=== PATIENT | female | born 1955 | race Caucasian/White ===

== ENCOUNTER 2023-09-16 11:43 | Emergency (ER) | payer MEDICARE, OTHER, SELFPAY ==
[2023-09-16] VITALS (20 sets, daily range): BP systolic 122–240; BP diastolic 52–118; PULSE 76–85; RESP 10–19; TEMP 37.1; O2SAT 88–95; BMI 43.5
--- NOTE | 2023-09-16 12:32 | ECG_ITS ---
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
--- NOTE | 2023-09-16 12:32 | XR_ITS ---
The [address] [address] Patient Name: ANTOINETTE MOREL MRN: [id number] date: 1955 Sex: F Assigned Patient Location: ER Current Patient Location: ER Accession/Order Number: [id number] Exam Date: 09/16/2023 12:55 Report Date: 09/16/2023 13:09 At the request of: SHAYLA MONSIVAIS Procedure: XR chest 2V EXAM: XR chest 2V HISTORY: htn COMPARISON: None. TECHNIQUE: PA and lateral views of the chest. FINDINGS: The cardiomediastinal silhouette is enlarged. Interstitial opacity. There is no pneumothorax. No pleural effusion is noted. The osseous structures are intact. XR/XR chest 2V IMPRESSION: Cardiomegaly with congestion. Electronically authenticated by: KARLIE SANDS Date: 09/16/2023 13:09
--- NOTE | 2023-09-16 12:33 | ED.GENADUL1 ---
HPI - General Adult General Chief complaint: Headache Stated complaint: HEADACHE Time Seen by Provider: 09/16/23 12:32 Source: patient Mode of arrival: Wheelchair Limitations: no limitations History of Present Illness HPI narrative: Patient is a 68-year-old female who is presenting to the ER today with chief complaint of bilateral frontal headache and headache to the top of her head as well. Patient saw her PCP Dr. lokesh Mancini in the office yesterday. Patient did not have a headache and patient blood pressure is not increased yesterday. Patient is compliant with her medications. Patient does have a history of headaches. Patient states she's been battling with sinus congestion for the past several months. No vision or hearing changes. Patient is brought to the Emergency Room by a family member. Patient states that she woke up with headache this morning and gradually gotten worse.Patient's headache was not the worse headache of her life, not sudden onset, not thunderclap in nature. No nausea, patient rates her headaches 10/10. No fever. No other acute complaints. All systems are negative except as noted/marked. All systems reviewed and otherwise negative. Nurses note and vital signs reviewed and patient is not hypoxic. General: The patient appears well and in no apparent distress. Patient is resting comfortably on cart. Patient is not toxic, lethargic, or listless. Patient is wearing sunglasses. Skin: Warm, dry, no pallor noted. There is no rash noted. No petechiae, purpura. Head: Normocephalic, atraumatic, No midline or paracervical tenderness to palpation. Full range of motion of cervical spinal no difficulty. Eye: Normal conjunctiva, no drainage, EOMI. PERRL Ears, Nose, Mouth, and Throat: oral mucosa is moist. Nares patent. Mouth without vesicles. Cardiovascular: Regular Rate and Rhythm, no murmur, gallop, rub Respiratory: Patient is in no distress, no accessory muscle use, lungs are clear to auscultation, no wheezing, rales or rhonchi Back: non-tender, no CVA tenderness bilaterally to percussion. No CT LS midline pain GI: Obese, no tenderness to palpation, no masses appreciated. No rebound, guarding, or rigidity noted. No distention Musculoskeletal: Patient has full range of motion of all of the extremities, no motor, sensory, or focal neurological deficits Neurological: A&O x4, normal speech, NIH 0 Psychiatric: Cooperative Related Data Home Medications Medication Instructions Recorded Confirmed metoprolol succinate 50 mg capsule 50 mg PO DAILY 09/16/23 09/16/23 sprinkle, ext. release 24 hr thyroid (pork) 60 mg tablet ([employer] 60 mg PO DAILY 09/16/23 09/16/23 Thyroid) trazodone 50 mg tablet 50 mg PO .at night PRN insomnia 09/16/23 09/16/23 zaleplon 10 mg capsule 10 mg PO .qhs 09/16/23 09/16/23 Previous Rx's Medication Instructions Recorded iutyfbddfi-nikfynptoozzg-cxoalefw 1 cap PO Q8H PRN pain/headache #7 09/16/23 50 mg-300 mg-40 mg capsule caps (Fioricet) prochlorperazine maleate 10 mg 10 mg PO Q12H PRN nausea and 09/16/23 tablet (Compazine) vomiting, headache 7 days #7 tabs Allergies Allergy/AdvReac Type Severity Reaction Status Date / Time ketorolac [From Toradol] Allergy Mild Verified 09/16/23 11:48 magnesium Allergy Mild Verified 09/16/23 11:48 metformin Allergy Mild Uncoded 09/16/23 11:48 PFSH PFSH Social History Smoking status: Never smoker Exam Constitutional Vital Signs, click to edit/add: Last Vital Signs Temp 98.7 F 09/16/23 11:48 Pulse 85 09/16/23 14:03 Resp 16 09/16/23 13:20 BP 168/80 H 09/16/23 14:46 Pulse Ox 94 L 09/16/23 14:27 Course Vital Signs Vital signs: Vital Signs Temperature 98.7 F 09/16/23 11:48 Pulse Rate 83 09/16/23 11:48 Respiratory Rate 18 09/16/23 11:48 Blood Pressure 240/118 H 09/16/23 11:48 Pulse Oximetry 95 09/16/23 11:48 Temperature 98.7 F 09/16/23 11:48 Pulse Rate 85 09/16/23 14:03 Respiratory Rate 16 09/16/23 13:20 Blood Pressure 168/80 H 09/16/23 14:46 Pulse Oximetry 94 L 09/16/23 14:27 Medical Decision Making MDM Narrative Medical decision making narrative: CT of the brain showed no acuute findings, x-ray labwork showed no significant findings. Patient was initially given IV fluids and medication for headache. A fioricet and Compazine were given in the Emergency Room and a prescription was written for both of them as well. Patient states that her headache has been decreasing and is tolerable at discharge. No strokelike signs or symptoms. Patient does not have a blood pressure cuff at home. Patient will record her blood pressure twice a day at home, record the numbers, and then the patient's blood pressure is consistently elevated above 140/90, she'll follow up with Dr. lokesh Mancini for additional recommendations. Patient feels comfortable ggoing home, no questions at discharge., Lab Data Labs: Lab Results 09/16/23 Range/Units 12:47 WBC 7.8 (4.0-11.0) 10^3/uL RBC 4.55 (4.20-5.40) 10^6/uL Hgb 12.2 (12.0-16.0) g/dL Hct 39.2 (36.0-48.0) % MCV 86.2 (81.0-99.0) fL MCH 26.8 (26.7-34.0) pg MCHC 31.1 (29.9-35.2) g/dL RDW 14.2 (11.0-15.0) % Plt Count 334 (150-450) 10^3/uL MPV 9.8 (9.5-13.5) fL Neut % (Auto) 74.7 (43.0-75.0) % Lymph % (Auto) 18.2 L (20.5-60.0) % Davidson % (Auto) 4.9 (1.7-12.0) % Eos % (Auto) 1.0 (0.9-7.0) % Baso % (Auto) 0.6 (0.2-2.0) % Neut # (Auto) 5.8 (1.4-6.5) 10^3/uL Lymph # (Auto) 1.4 (1.2-3.8) 10^3/uL Davidson # (Auto) 0.4 (0.3-0.8) 10^3/uL Eos # (Auto) 0.1 (0.0-0.7) 10^3/uL Baso # (Auto) 0.1 (0.0-0.1) 10^3/uL Abs Immat Gran (auto) 0.05 H (0.00-0.03) 10^3/uL Imm/Tot Granulo (auto) 0.6 H (0.0-0.5) % Sodium 140 (136-145) mmol/L Potassium 3.8 (3.5-5.1) mmol/L Chloride 103 (98-107) mmol/L Carbon Dioxide 29.5 (21.0-32.0) mmol/L Anion Gap 11.3 BUN 22.0 H (7.0-18.0) mg/dL Creatinine 0.79 (0.55-1.02) mg/dL Est GFR ( Amer) >60 (>=60) Est GFR (Non-Af Amer) >60 (>=60) BUN/Creatinine Ratio 27.8 Glucose 124 H (74-106) mg/dL Calcium 10.0 (8.5-10.1) mg/dL Magnesium 1.9 (1.8-2.4) mg/dL Troponin I High Sens 12.9 (4.0-51.3) pg/mL ECG Data Attestation: I personally reviewed and interpreted this ECG as follows: (EKG interpretation. Normal sinus rhythm at 73 beats a minute. Normal axis deviation. No acute ST elevation, no acute ectopy. QTc of 395.) Discharge Plan Discharge Chief Complaint: Headache Clinical Impression: Headache, Hypertension Patient Disposition: Home, Self-Care Time of Disposition Decision: 14:43 Condition: Fair Prescriptions / Home Meds: New prochlorperazine maleate [Compazine] 10 mg tablet 10 mg PO Q12H PRN (Reason: nausea and vomiting, headache) 7 Days Qty: 7 0RF vzevbhoyzh-vevigzjirdscl-oqwi [Fioricet] 50-300-40 mg capsule 1 cap PO Q8H PRN (Reason: pain/headache) Qty: 7 0RF No Action thyroid (pork) [[employer] Thyroid] 60 mg tablet 60 mg PO DAILY trazodone 50 mg tablet 50 mg PO .at night PRN (Reason: insomnia) zaleplon 10 mg capsule 10 mg PO .qhs metoprolol succinate 50 mg capsule,sprinkle,ER 24hr 50 mg PO DAILY Instructions: Hypertension (ED), General Headache (ED) Additional Instructions: Use Fioricet for headache or Compazine as needed for nausea, vomiting, or headache as well. Stand Alone Forms: Portal Instructions Referrals: MAAME GIFFORD [Primary Care Provider] - 1 week Discharge Date/Time: 09/16/23 15:01
[2023-09-16] MEDS: ACETAMINOPHEN 325 MG TABLET 650 MG PO (12:43)
[2023-09-16] MEDS: LACTATED RINGER'S SOLUTION 1,000 ML 125 ML IV (12:43)
[2023-09-16] MEDS: LABETALOL HCL 20 MG/4 ML SYRINGE IVP (12:44)
[2023-09-16 12:57] LABS: Basophils Absolute Auto 0.1 10^3/uL (0.0-0.1); Basophils Percent Auto 0.6 % (0.2-2.0); Eosinophils Absolute Auto 0.1 10^3/uL (0.0-0.7); Hematocrit 39.2 % (36.0-48.0); Hemoglobin 12.2 g/dL (12.0-16.0); Immature Granulocytes Abs Auto 0.05 10^3/uL (0.00-0.03); Immature Granulocytes Pct Auto 0.6 % (0.0-0.5); Lymphocytes Absolute Auto 1.4 10^3/uL (1.2-3.8); Lymphocytes Percent Auto 18.2 % (20.5-60.0); Mean Corpuscular HGB Conc 31.1 g/dL (29.9-35.2); Mean Corpuscular Hemoglobin 26.8 pg (26.7-34.0); Mean Corpuscular Volume 86.2 fL (81.0-99.0); Mean Platelet Volume 9.8 fL (9.5-13.5); Monocytes Absolute Auto 0.4 10^3/uL (0.3-0.8); Monocytes Percent Auto 4.9 % (1.7-12.0); Neutrophils Absolute Auto 5.8 10^3/uL (1.4-6.5); Neutrophils Percent Auto 74.7 % (43.0-75.0); Platelet Count 334 10^3/uL (150-450); Red Blood Count 4.55 10^6/uL (4.20-5.40); Red Cell Distribution Width 14.2 % (11.0-15.0); White Blood Count 7.8 10^3/uL (4.0-11.0)
[2023-09-16 13:10] LABS: Anion Gap 11.3; BUN Creatinine Ratio 27.8; Carbon Dioxide 29.5 mmol/L (21.0-32.0); Chloride 103 mmol/L (98-107); Estimated GFR (African America >60 (>=60); Estimated GFR (Non-African Ame >60 (>=60); Glucose 124 mg/dL (74-106); Magnesium 1.9 mg/dL (1.8-2.4); Potassium 3.8 mmol/L (3.5-5.1); Sodium 140 mmol/L (136-145); Troponin I High Sensitivity 12.9 pg/mL (4.0-51.3)
--- NOTE | 2023-09-16 13:16 | CT_ITS ---
The [address] [address] Patient Name: ANTOINETTE MOREL MRN: [id number] date: 1955 Sex: F Assigned Patient Location: ER Current Patient Location: ER Accession/Order Number: [id number] Exam Date: 09/16/2023 13:25 Report Date: 09/16/2023 13:45 At the request of: SHAYLA MONSIVAIS Procedure: CT head/brain wo con EXAM: CT head/brain wo con HISTORY: htn [place] COMPARISON: None. TECHNIQUE: Axial noncontrast CT imaging of the head was performed with coronal and sagittal reformats. This CT exam was performed using one or more of the following dose reduction techniques: Automated exposure control, adjustment of the MA and/or kV according to patient size, or use of iterative reconstruction technique. FINDINGS: Calvarium/skull base: No evidence of acute fracture or destructive lesion. Mastoids and middle ears demonstrate no substantial mucosal disease. Paranasal sinuses: No air fluid levels. Brain: No acute intracranial hemorrhage. No acute large vascular territory infarct. No mass lesion or mass effect. No hydrocephalus. CT/CT head/brain wo con IMPRESSION: No acute intracranial process. Electronically authenticated by: TAINA BARAKAT Date: 09/16/2023 13:45
[2023-09-16] MEDS: BUTALB/ACETAMINOPHEN/CAFFEINE 50-325-40MG TABLET 1 TAB PO (13:40)
[2023-09-16] MEDS: PROCHLORPERAZINE 10 MG/2 ML VIAL IV (13:40)
== END 2023-09-16 15:01 | disposition home or self-care (01) ==
PROVIDERS: Emergency Provider Emergency Medicine; PCP Family Medicine
DX: R51.9 Headache, unspecified (principal); I10 Essential (primary) hypertension; Z79.899 Other long term (current) drug therapy
CPT/HCPCS: 36415; 70450; 71046; 80048; 83735; 84484; 85025; 93005; 96374; 99285

== ENCOUNTER 2024-09-18 04:29 | Emergency (ER) | payer MEDICARE, OTHER, SELFPAY ==
[2024-09-18] VITALS (8 sets, daily range): BP systolic 170–198; BP diastolic 78–89; PULSE 63–87; TEMP 36.6–36.8; O2SAT 93–99; BMI 47.8
--- NOTE | 2024-09-18 04:36 | ECG_ITS ---
The 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
--- OUTSIDE RECORDS SUMMARY | 2024-09-18 04:39 | XMS_ITS | CCD ---
Author Organization [facility] Inform ion Partnership [facility] Care Team Providers Care Final Coat Sprayer Name Role Phone ИРИНА ., DR ISABEL Admitting Unavailable HEMEYER ., DR ISABEL Attending Unavailable HEMEYER ., DR ISABEL Consulting Unavailable HEMEYER ., DR ISABEL Primary Care Unavailable OSVALDO, DR JEISON Cabrales Attending Unavailable LESLIE, DR NICOLE Hoskins Consulting Unavailable OSVALDO, DR JEISON Cabrales Admitting Unavailable HEMEYER ., DR ISABEL Primary Care Unavailable OSVALDO, DR JEISON Cabrales Consulting Unavailable ABIODUN TIJERINA Consulting Unavailable NICOLE HYATT Consulting Unavailable SALGUERO, PAUL Consulting Unavailable HEMEYER ., DR ISABEL Admitting Unavailable HEMEYER ., DR ISABEL Attending Unavailable HEMEYER ., DR ISABEL Consulting Unavailable HEMEYER ., DR ISABEL Primary Care Unavailable HEMEYER ., DR ISABEL Admitting Unavailable HEMEYER ., DR ISABEL Attending Unavailable HEMEYER ., DR ISABEL Consulting Unavailable HEMEYER ., DR ISABEL Primary Care Unavailable Ericyer Ramiro REVELES Primary Care Provider Ramiro Gifford MD Primary Care Provider [phone] Ramiro Gifford MD Primary Care Provider [phone] INDRA BAUER Attending Unavailable ERICYERRAMIRO Referring Unavailable HEMEYERRAMIRO Attending Unavailable RAMIRO GIFFORD Attending Unavailable HEMEYERRAMIRO Attending Unavailable HEMERAMIRO GARBER Attending Unavailable HEMEYERRAMIRO Attending Unavailable BUSTER FONTAINE Attending Unavailable RAMIRO GIFFORD Referring Unavailable HEMEYERRAMIRO Referring Unavailable Allergies Allergy Classification Reported Allergen(s) Allergy Type Date of Onset Reaction(s) Facility (1 source) Androstenedione Drug Allergy [facility] (1 source) Ketorolac Drug Allergy [facility] (8 sources) Magnesium Drug Allergy [address] [facility] (8 sources) metFORMIN Drug Allergy 2 [facility] (8 sources) traMADol Drug Allergy 2 Nausea Only [facility] Medications Current Medications Medication Drug Class(es) Dates Sig (Normalized) Sig (Original) acetaminophen 300 mg / butalbital 50 mg / caffeine 40 mg oral capsule (2 sources) Barbiturate, Central Nervous System Stimulant, Methylxanthine Start: 09-16-2023 End: 04-12-2024 take 1 capsule by mouth every six hours as needed butalbital-acetam inophen-caffeine (Fioricet) 50-300-40 MG capsule Take 1 capsule by mouth every 6 (six) hours if needed 09/16/2023 04/12/2024 Discontinued (Therapy completed) albuterol 0.83 mg/ml inhalation solution (16 sources) beta2-Adrenergic Agonist Start: 09-15-2023 albuterol (2.5 MG/3ML) 0.083% nebulizer solution Indications: Chronic restrictive lung disease Take 3 mL (2.5 mg) by nebulization every 6 (six) hours if needed for wheezing 1080 mL 09/15/2023 Active Start: 09-15-2023 take 2 puff(s) by in halation every six hours for wheezing albuterol HFA 90 mcg/act inhaler Indications: Chronic restrictive lung disease Inhale 2 puffs every 6 (six) hours if needed for wheezing 54 g 1 09/15/2023 Active hydroCHLOROthiazide 12.5 mg / losartan potassium 50 mg oral tablet (10 sources) Thiazide Diuretic, Angiotensin 2 Receptor Deepa Start: 01-26-2024 End: 12-25-2024 take 1 tablet by mouth once daily losartan-hydroCHLOROthiazide (Hyzaar) 50-12.5 MG tablet Indications: Benign hypertension (CMS/HCC) Take 1 tablet by mouth Daily 90 tablet 1 06/28/2024 12/25/2024 Active Iron Combinations (IRON COMPLEX PO) (8 sources) take 1 tablet by mouth three times weekly Iron Combinations (IRON COMPLEX PO) Take 1 tablet by mouth 3 (three) times a week. Active melatonin 12 mg oral tablet (5 sources) End: 06-28-2024 take 1 tablet by mouth at bedtime Melatonin 12 MG tablet Take 12 mg by mouth at bedtime 06/28/2024 Discontinued (Therapy completed) 24 hr metoprolol succinate 50 mg extended release oral tablet (10 sources) beta-Adrenergic Deepa Start: 01-14-2024 End: 12-25-2024 take 1 tablet by mouth once daily metoprolol succinate XL (Toprol-XL) 50 MG 24 hr tablet Indications: Benign hypertension (CMS/HCC) Take 1 tablet (50 mg) by mouth Daily 90 tablet 1 06/28/2024 12/25/2024 Active Multiple Vitamin (Multi-Vitamin) tablet (8 sources) take 1 tablet by mouth in the morning Multiple Vitamin (Multi-Vitamin) tablet Take 1 tablet by mouth in the morning. Active prochlorperazine 10 mg oral tablet (2 sources) Phenothiazine Start: 09-16-2023 End: 04-12-2024 take 1 tablet by mouth every six hours as needed for nausea prochlorperazine (Compazine) 10 MG tablet Take 10 mg by mouth every 6 (six) hours if needed for nausea 09/16/2023 04/12/2024 Discontinued (Therapy completed) spironolactone 25 mg oral tablet (8 sources) Aldosterone Antagonist Start: 08-17-2024 End: 11-15-2024 take 1 tablet by mouth in the morning spironolactone (Aldactone) 25 MG tablet Indications: Venous insufficiency Take 1 tablet (25 mg) by mouth in the morning and 1 tablet (25 mg) before bedtime. 180 tablet 08/17/2024 11/15/2024 Active Start: 04-26-2024 End: 07-25-2024 take 1 tablet by mouth in the morning spironolactone (Aldactone) 25 MG tablet Indications: Venous insufficiency Take 1 tablet (25 mg) by mouth in the morning and 1 tablet (25 mg) before bedtime. 180 tablet 04/26/2024 07/25/2024 Active Start: 01-28-2024 take 1 tablet by casie th in the morning spironolactone (Aldactone) 25 MG tablet Indications: Venous insufficiency Take 1 tablet (25 mg) by mouth in the morning and 1 tablet (25 mg) before bedtime. 60 tablet 01/28/2024 Active thyroid (mcfp) 60 mg oral tablet (10 sources) Start: 10-13-2023 End: 10-09-2024 take 1 tablet by mouth in the morning thyroid ([employer] Thyroid) 60 MG tablet Indications: Central hypothyroidism (CMS/HCC) , ESS (euthyroid sick syndrome) Take 1 tablet (60 mg) by mouth in the morning and 1 tablet (60 mg) in the evening. Take before meals. 180 tablet 1 04/12/2024 10/09/2024 Active traZODone hydrochloride 50 mg oral tablet (10 sources) Serotonin Reuptake Inhibitor Start: 01-26-2024 End: 02-01-2025 take 1.5 tablets by mouth at bedtime traZODone (Desyrel) 50 MG tablet Indications: Insomnia Take 1.5 tablets (75 mg) by mouth at bedtime 135 tablet 1 08/05/2024 02/01/2025 Active zaleplon 10 mg oral capsule (10 sources) gamma-Aminobutyr ic Acid A Receptor Agonist Start: 01-26-2024 End: 06-28-2024 zaleplon (Sonata) 10 MG capsule Indications: Sleep disorder due to a general medical condition, mixed type Take 1 capsule at bedtime for sleep 90 capsule 1 06/28/2024 Active Problems Active Problems Problem Classification Problem Date Documented Date Episodic/Chronic Cataract (1 source) Bilateral cortical age-related cataract eyes; Translations: [Cortical age-related cataract, bilateral] 07-19-2024 Chronic Chronic kidney disease (10 sources) Chronic kidney disease stage 2; Translations: [Chronic kidney disease, stage 2 (mild)] Onset: 01-28-2023 01-28-2023 Chronic Essential hypertension (10 sources) Benign hypertension; Translations: [Essential (primary) hypertension] Onset: 01-28-2023 01-28-2023 Chronic Hypertension with complications and secondary hypertension (11 sources) Hypertensive urgency; Translations: [Hypertensive renal disease] Onset: 01-01-2022 04-16-2023 Chronic Malaise and fatigue (10 sources) Fatigue; Translations: [Chronic fatigue, unspecified] Onset: 01-28-2023 01-28-2023 Chronic Menopausal disorders (8 sources) Disorder associated with menstruation AND/OR menopause; Translations: [Menopausal and female climacteric states] Onset: 01-28-2023 01-28-2023 Chronic Nonmalignant breast conditions (3 sources) Cyst of right breast; Translations: [Solitary cyst of right breast] Onset: 08-26-2024 09-08-2024 Episodic Nutritional deficiencies (8 sources) Vitamin D deficiency; Translations: [Vitamin D deficiency, unspecified] Onset: 01-28-2023 01-28-2023 Chronic Other acquired deformities (8 sources) Scoliosis of lumbar spine; Translations: [Other forms of scoliosis, lumbar region] Onset: 01-28-2023 01-28-2023 Chronic Other and unspecified benign neoplasm (1 source) Nevus of choroid of right eye; Translations: [Benign neoplasm of right choroid] 07-19-2024 Episodic Other nervous system disorders (8 sources) Chronic pain syndrome; Translations: [Chronic pain syndrome] Onset: 01-28-2023 01-28-2023 Chronic Other nutritional; endocrine; and metabolic disorders (1 source) Morbid (severe) obesity due to excess calories; Translations: [MORBID SEVERE OBES D/T EXCESS JUAN] Onset: 01-23-2022 Chronic Other nutritional; endocrine; and metabolic disorders (1 source) Body mass index (BMI) 45.0-49.9, adult; Translations: [BODY MASS INDEX BMI 45.0-49.9 ADULT] Onset: 01-23-2022 Chronic Other nutritional; endocrine; and metabolic disorders (10 sources) Obesity caused by energy imbalance; Translations: [Morbid (severe) obesity due to excess calories] Onset: 09-17-2018 04-16-2023 Chronic Other screening for suspected conditions (not mental disorders or infectious disease) (2 sources) Mammography abnormal; Translations: [Other abnormal and inconclusive findings on diagnostic imaging of breast] Onset: 09-08-2024 09-08-2024 Episodic Residual codes; unclassified (4 sources) Obstructive sleep apnea (adult) (pediatric); Translations: [OBSTRUCTIVE SLEEP APNEA] Onset: 09-16-2022 Chronic Residual codes; unclassified (8 sources) Obstructive sleep apnea syndrome; Translations: [Obstructive sleep apnea (adult) (pediatric)] Onset: 01-28-2023 02-03-2023 Chronic Residual codes; unclassified (10 sources) Organic sleep disorder; Translations: [Other sleep disorders] Onset: 02-03-2023 02-03-2023 Chronic Residual codes; unclassified (10 sources) Idiopathic sleep related non-obstructive alveolar hypoventilation; Translations: [Idiopathic sleep related nonobstructive alveolar hypoventilation] Onset: 03-14-2022 04-16-2023 Chronic Retinal detachments; defects; vascular occlusion; and retinopathy (1 source) Nonexudative age-related macular degeneration; Translations: [Nonexudative age-related macular degeneration, bilateral, early dry stage] 07-19-2024 Chronic Spondylosis; intervertebral disc disorders; other back problems (20 sources) Lumbar spondylosis; Translations: [Spondylosis without myelopathy or radiculopathy, lumbar region] Onset: 07-18-2021 01-28-2023 Chronic Thyroid disorders (20 sources) Nontoxic multinodular goiter; Translations: [Autoimmune thyroiditis] Onset: 04-23-2022 Chronic Unclassified (1 source) CONTACT W/AND (SUSP) EXPOS COVID-19; Translations: [CONTACT W/AND (SUSP) EXPOS COVID-19] Onset: 01-23-2022 Unclassified (8 sources) Patient on antidepressant monitoring plan Onset: 01-26-2024 01-26-2024 Past or Other Problems Problem Classification Problem Date Documented Date Episodic/Chronic Adjustment disorders (8 sources) Adjustment disorder; Translations: [Adjustment disorder, unspecified] Onset: 11-23-2019 Resolved: 09-15-2023 09-15-2023 Chronic Coma; stupor; and brain damage (8 sources) Daytime somnolence; Translations: [Somnolence] Onset: 01-28-2023 Resolved: 08-04-2023 08-04-2023 Episodic Diabetes mellitus without complication (10 sources) Impaired glucose tolerance; Translations: [Impaired glucose tolerance (oral)] Onset: 09-22-2017 04-16-2023 Episodic Mood disorders (8 sources) Mood disorders Onset: 09-15-2023 09-15-2023 Nonspecific chest pain (4 sources) Chest pain, unspecified; Translations: [CHEST PAIN UNSPECIFIED] Onset: 01-15-2022 Episodic Nutritional deficiencies (8 sources) Iron deficiency; Translations: [Iron deficiency] Onset: 01-28-2023 01-28-2023 Episodic Other acquired deformities (8 sources) Acquired spondylolisthesis; Translations: [Spondylolisthesis, lumbosacral region] Onset: 01-28-2023 01-28-2023 Episodic Other aftercare (10 sources) Drug therapy finding; Translations: [Other watermaster (current) drug therapy] Onset: 04-16-2023 04-16-2023 Episodic Other diseases of veins and lymphatics (8 sources) Vascular insufficiency; Translations: [Venous insufficiency (chronic) (peripheral)] Onset: 09-15-2023 09-15-2023 Episodic Other diseases of veins and lymphatics (8 sources) Disorder of vein of lower extremity; Translations: [Venous insufficiency (chronic) (peripheral)] Onset: 09-15-2023 09-15-2023 Episodic Other lower respiratory disease (10 sources) Paralysis of diaphragm ; Translations: [Disorders of diaphragm] Onset: 01-28-2023 01-28-2023 Episodic Other lower respiratory disease (8 sources) Restrictive lung disease; Translations: [Other disorders of lung] Onset: 01-28-2023 01-28-2023 Episodic Other nervous system disorders (8 sources) Abnormal gait; Translations: [Unspecified abnormalities of gait and mobility] Onset: 01-28-2023 Resolved: 09-15-2023 09-15-2023 Episodic Other nutritional; endocrine; and metabolic disorders (8 sources) Body mass index 40+ - severely obese; Translations: [Morbid (severe) obesity due to excess calories] Onset: 01-28-2023 Resolved: 03-30-2024 03-30-2024 Chronic Residual codes; unclassified (8 sources) Dependence on other enabling machines and devices; Translations: [Dependence on other enabling machines] Onset: 01-28-2023 Resolved: 09-15-2023 09-15-2023 Chronic Residual codes; unclassified (8 sources) Acquired absence of cervix and uterus; Translations: [Acquired absence of both cervix and uterus] Onset: 01-28-2023 01-28-2023 Episodic Residual codes; unclassified (8 sources) Menopause present; Translations: [Asymptomatic menopausal state] Onset: 06-18-2021 04-16-2023 Episodic Spondylosis; intervertebral disc disorders; other back problems (20 sources) Chronic low back pain; Translations: [Chronic midline low back pain without sciatica] Onset: 07-28-2021 Resolved: 09-15-2023 01-28-2023 Episodic Thyroid disorders (11 sources) Sick-euthyroid syndrome; Translations: [Sick-euthyroid syndrome] Onset: 04-26-2022 01-28-2023 Episodic Results Test Name Value Interpretation Reference Range Facility BI MAMMOGRAM DIAGNOSTIC AMBER SYNTHESIS RIGHTon 08-05-2024 BI MAMMOGRAM DIAGNOSTIC TOMOSYNTHESIS RIGHT This is a summary report. The complete report is available in the patient's medical record. If you cannot access the medical record, please contact the sending organization for a detailed fax or copy. EXAMINATION: BI MAMMOGRAM DIAGNOSTIC TOMOSYNTHESIS RIGHT CLINICAL HISTORY: callback TECHNIQUE: Diagnostic digital mammogram study of the right breast was performed with 2D and 3D tomosynthesis imaging. Study was compared to the screening mammogram study of the breasts dated 07/30/2024 and ultrasound study of the right breast dated 08/05/2024. FINDINGS: Coned-down compression views of the area of interest and true lateral view of the right breast were obtained. Previously noted approximately 1 cm fairly round asymmetric density in the inferomedial aspect of the right breast near the midline is again identified. Ultrasound study demonstrates slightly lobulated and partially septated area of decreased echogenicity like representing a complex cyst. Other possibility would be less likely. When correlating all studies there is no convincing evidence of neoplasm. Mild scattered benign-appearing calcifications. IMPRESSION: Previously noted approximately 1 cm density in the right breast again identified, likely representing a complex cyst when correlated with the ultrasound exam. Other possibly would be less likely. No convincing evidence of neoplasm. Follow-up diagnostic mammogram study of the right breast as well as ultrasound study of the right breast in 6 months recommended to assess stability. BIRADS 3 - Probably Benign Findings DENSITY: There are scattered areas of fibroglandular density. FOLLOW-UP: Diagnostic Mammogram in 6 Months, breast ultrasound in 6 months Board Certified Radiologists. Accredited by the ACR and FDA. MAMMOGRAPHY IS VERY IMPORTANT TO YOUR HEALTH. THE [employer] GUIDELINES RECOMMEND THAT WOMEN 40 YEARS OF AGE AND OLDER SHOULD HAVE A MAMMOGRAM EVERY YEAR. A REMINDER LETTER WILL BE SENT AT THE APPROPRIATE TIME. ELECTRONICALLY SIGNED BY: William Gonzales M.D. Normal Not Available BI US BREAST LIMITED RIGHTon 08-05-2024 BI US BREAST LIMITED RIGHT Examination: BI US BREAST LIMITED RIGHT Reason for Study: callback Comparison: Screening mammogram study of the breasts dated 07/30/2024, diagnostic mammogram study of the right breast dated 08/05/2024. Technique: Ultrasound study of the right breast was obtained from the 2:00 to the 7 o'clock position to include the area of interest. Findings: At the 4 o'clock position there is an approximately 1.1 x 1.0 x 0.8 cm area of decreased echogenicity which is partially septated peripherally compatible with a complex cyst. Finding is felt to correlate with the asymmetric density on the mammogram studies. No obvious internal vascularity. No obvious solid vascular mass to suggest neoplasm. IMPRESSION: Impression: Right breast ultrasound study demonstrates a likely complex cyst at the 4 o'clock position correlating with the asymmetric density noted on the mammogram studies. When correlating all studies no convincing evidence of neoplasm. Follow-up diagnostic mammogram study of the right breast as well as ultrasound study of the right breast in 6 months recommended to assess stability. BI-RADS 3 ELECTRONICALLY SIGNED BY: William Gonzales M.D. Normal Not Available BI MAMMOGRAM SCREENING TOMOS YNTHESIS BILATERALon 07-30-2024 BI MAMMOGRAM SCREENING TOMOSYNTHESIS BILATERAL This is a summary report. The complete report is available in the patient's medical record. If you cannot access the medical record, please contact the sending organization for a detailed fax or copy. Examination: BI MAMMOGRAM SCREENING TOMOSYNTHESIS BILATERAL Clinical History: screen breast ca Technique: Screening digital mammography study of both breasts was performed with 2-D and 3-D tomosynthesis imaging. Study was compared to the prior exam dated 07/02/2023. Findings: Approximately 1 cm fairly round asymmetric density in the inferomedial aspect of the right breast near the midline of uncertain etiology and significance. Follow-up diagnostic mammogram study of the right breast as well as ultrasound study of the right breast is recommended for further evaluation. At the diagnostic setting coned-down compression views as well as true lateral view of the right breast should be obtained. At the ultrasound setting images may be obtained from the 2:00 to the 7 o'clock position. Mild scattered benign-appearing calcifications noted bilaterally. Small benign-appearing nodular density on the right laterally near the midline on cc view similar to the prior study. Axillary lymph nodes are noted bilaterally. IMPRESSION: Impression: Asymmetric density in the inferomedial aspect of the right breast near the midline as described. Follow-up diagnostic mammogram study of the right breast with views suggested above as well as ultrasound study of the right breast with views suggested above recommended for further evaluation. BIRADS 0 - Incomplete: Needs Additional Imaging Evaluation DENSITY: There are scattered areas of fibroglandular density. FOLLOW-UP: Additional Imaging Diagnostic Mammogram, ultrasound ELECTRONICALLY SIGNED BY: William Gonzales M.D. Abnormal Not Available SCREENING MAMMOGRAM W/AMBER, BILATERAL*on 07-31-2022 SCREENING MAMMOGRAM W/AMBER, BILATERAL* CLINICAL HISTORY: Screening Mammogram COMPARISON: [facility]ors from 2021, 2018, 2017, 2016 TECHNIQUE: 2D and 3D mammogram imaging of both breasts was performed. RESULT: DENSITY: There are scattered areas of fibroglandular density. There is no suspicious mass, asymmetry, architectural distortion, or calcification. No significant change since the prior mammograms. Stable asymmetries and benign calcifications. Biopsy clip left breast, unchanged. IMPRESSION: BIRADS 2 : BENIGN FINDINGS, NORMAL INTERVAL FOLLOW UP. FOLLOW-UP: 12 months DENSITY: Scattered MAMMOGRAPHY IS VERY IMPORTANT TO YOUR HEALTH. THE CURRENT [employer] GUIDELINES RECOMMENDS ANNUAL MAMMOGRAPHY BEGINNING AT AGE 40 THIS FACILITY USES A REMINDER SYSTEM TO ENSURE ALL PATIENTS RECEIVE REMINDER NOTIFICATIONS AT THE APPROPRIATE TIME BASED ON THE RECOMMENDATIONS OF THIS EXAM. Board Certified Radiologist. Accredited by the ACR and FDA. Report reported and signed by Iban Neri on 07/31/2022 1132 Normal [facility] [employer] Hand REVERSE T3on 04-27-2022 Reverse T3, Serum 25.3 ng/dL Critically high 9.2-24.1 Th [facility] Comment on above: Result Comment: This test was developed and its performance characteristics determined by [facility]. It has not been cleared or approved by the Food and Drug Administration. Performed By: #### R EVRT3 #### [facility] [address] [address] [address] Henry Jones T3, TOTAL (TRIIODOTHYRONINE) on 04-24-2022 T3, TOTAL 225 ng/dL Critically high 71-180 [facility] Comment on above: Performed By: #### T 3TOTAL #### [facility] [address], [place] [address] Dr. Henry Jones FREE T3on 04-23-2022 FREE T3 3.43 pg/mlL Normal 2.18-3.98 [facility] Comment on above: Performed By: #### T SH, FT3 #### [facility] [address] [place] [address] Dr. Henry Jones TSHon 04-23-2022 TSH 0.211 uIU/mL Critically low 0.358-3.740 [facility] Comment on above: Performed By: #### T SH, FT3 #### [facility] [address] [place] [address] Dr. Henry Jones CARDIAC KARLIE 3-6on 2 CK [Catalytic activity/Vol] 30 U/L Normal 26-192 [facility] Comment on above: Performed By: #### T 3TOTAL #### [facility] [address] [place] [address] Dr. Henry Jones CK.MB [Mass/Vol] 1.40 ng/mL Normal <=3.[address] [facility] Comment on above: Performed By: #### T 3TOTAL #### [facility] [address] [place] [address] Dr. Henry Jones HSTROP 9.4 pg/mL Normal 4.0-51.3 [facility] Comment on above: Result Comment: CUT- OFF POINTS HAVE BEEN ESTABLISHED BASED ON THE FOURTH UNIVERSAL DEFINITIONS OF MYOCARDIAL INFARCTION. THE UPPER REFERENCE LIMIT (URL) OF TROPONIN, DEFINED THE 99TH PERCENTILE OF cTnI DISTRIBUTION IN A REFERENCE POPULATION, HAS BEEN CONFIRMED THE DECISION THRESHOLD FOR TN DIAGNOSIS. Performed By: #### T 3TOTAL #### [facility] [address] [place] [address] Dr. Henry Jones CK [Catalytic activity/Vol] 44 U/L Normal 26-192 [facility] Comment on above: Performed By: #### C MREP #### [facility] [address] [place] [address] Dr. Henry Jones CK.MB [Mass/Vol] 1.14 ng/mL Normal <=3.[address] [facility] Comment on above: Performed By: #### C MREP #### [facility] [address] [place] [address] Dr. Henry Jones HSTROP 11.3 pg/mL Normal 4.0-51.3 [facility] Comment on above: Result Comment: CUT- OFF POINTS HAVE BEEN ESTABLISHED BASED ON THE FOURTH UNIVERSAL DEFINITIONS OF MYOCARDIAL INFARCTION. THE UPPER REFERENCE LIMIT (URL) OF TROPONIN, DEFINED THE 99TH PERCENTILE OF cTnI DISTRIBUTION IN A REFERENCE POPULATION, HAS BEEN CONFIRMED THE DECISION THRESHOLD FOR TN DIAGNOSIS. Performed By: #### C MREP #### [facility] [address] [place] [address] Dr. Henry Jones CARDIAC KARLIE ADMITon 022 CK [Catalytic activity/Vol] 42 U/L Normal 26-192 [facility] Comment on above: Performed By: #### T 3TOTAL #### [facility] [address] [place] [address] Dr. Henry Jones CK.MB [Mass/Vol] 1.76 ng/mL Normal <=3.60 [facility] Comment on above: Performed By: #### T 3TOTAL #### [facility] [address] [place] [address] Dr. Henry Jones HSTROP 11.1 pg/mL Normal 4.0-51.3 [facility] Comment on above: Result Comment: CUT- OFF POINTS HAVE BEEN ESTABLISHED BASED ON THE FOURTH UNIVERSAL DEFINITIONS OF MYOCARDIAL INFARCTION. THE UPPER REFERENCE LIMIT (URL) OF TROPONIN, DEFINED THE 99TH PERCENTILE OF cTnI DISTRIBUTION IN A REFERENCE POPULATION, HAS BEEN CONFIRMED THE DECISION THRESHOLD FOR [place] DIAGNOSIS. Performed By: #### T 3TOTAL #### [facility] [address] [place] [address] Dr. Henry Jones MERCED 40 ng/mL Normal 9-82 [facility] Comment on above: Performed By: #### T 3TOTAL #### [facility] [address] [place] [address] Dr. Henry Jones CBC AUTO DIFFon 01-15-2022 BASO # 0.0 103/ul Normal 0.0-0.1 [facility] Comment on above: Performed By: #### C BC #### [facility] [address] [place] [address] Dr. Henry Jones Basophils/100 WBC (Bld) 0.3 % Normal 0.2-2.0 [facility] Comment on above: Performed By: #### C BC #### [facility] [address] [place] [address] Dr. Henry Jones EO # 0.1 103/ul Normal 0.0-0.7 [facility] Comment on above: Performed By: #### C BC #### [facility] [address] [place] [address] Dr. Henry Jones Eosinophils/100 WBC (Bld) 1.0 % Normal 0.9-7.0 [facility] Comment on above: Performed By: #### C BC #### [facility] [address] [place] [address] Dr. Henry Jones Erythrocyte distribution width (RBC) [Ratio] 13.7 % Normal 11.0-15.0 [facility] Comment on above: Performed By: #### C BC #### [facility] [address] [place] [address] Dr. Henry Jones Hematocrit (Bld) [Volume fraction] 37.8 % Normal 36.0-48.0 [facility] Comment on above: Performed By: #### C BC #### [facility] [address] [place] [address] Dr. Henry Jones Hemoglobin (Bld) [Mass/Vol] 12.0 g/dL Normal 12.0-16.0 [facility] Comment on above: Performed By: #### C BC #### [facility] [address] [place] [address] Dr. Henry Jones IG # 0.02 10e3/ul Normal 0.00-0.03 [facility] Comment on above: Performed By: #### C BC #### [facility] [address] [place] [address] Dr. Henry Jones IG % 0.2 % Normal 0.0-0.5 [facility] Comment on above: Performed By: #### C BC #### [facility] [address] [place] [address] Dr. Henry Jones LYMPH # 1.5 103/ul Normal 1.2-3.8 [facility] Comment on above: Performed By: #### C BC #### [facility] [address] [address] [address] Henry Jones Lymphocytes/100 WBC (Bld) 16.0 % Critically low 20.5-60.0 [facility] Comment on above: Performed By: #### C BC #### [facility] [address] [address] [address] Henry Jones MANUAL DIFF REQ NO Normal [facility] Comment on above: Performed By: #### C BC #### [facility] [address] [address] [address] Henry Jones MCH (RBC) [Entitic mass] 27.4 pg Normal 26.7-34.0 [facility] Comment on above: Performed By: #### C BC #### [facility] [address] [place] [address] Dr. Henry Jones MCHC (RBC) [Mass/Vol] 31.7 g/dL Normal 29.9-35.2 [facility] Comment on above: Performed By: #### C BC #### [facility] [address] [place] [address] Dr. Henry Jones MCV (RBC) [Entitic vol] 86.3 fL Normal 81.0-99.0 [facility] Comment on above: Performed By: #### C BC #### [facility] [address] [place] [address] Dr. Henry Jones MONO # 0.6 103/ul Normal 0.3-0.8 [facility] Comment on above: Performed By: #### C BC #### [facility] [address] [place] [address] Dr. Henry Jones Monocytes/100 WBC (Bld) 5.9 % Normal 1.7-12.0 [facility] Comment on above: Performed By: #### C BC #### [facility] [address] [place] [address] Dr. Henry Jones NEUT # 7.1 103/ul Critically high 1.4-6.5 [facility] Comment on above: Performed By: #### C BC #### [facility] [address] [place] [address] Dr. Henry Jones Neutrophils/100 WBC (Bld) 76.6 % Critically high 43.0-75.0 [facility] Comment on above: Performed By: #### C BC #### [facility] [address] [place] [address] Dr. Henry Jones Platelet mean volume (Bld) [Entitic vol] 9.7 fL Normal 9.5-13.5 [facility] Comment on above: Performed By: #### C BC #### [facility] [address] [place] [address] Dr. Henry Jones PLT 311 103/ul Normal 150-450 [facility] Comment on above: Performed By: #### C BC #### [facility] [address] [place] [address] Dr. Henry Jones RBC 4.38 106/ul Normal 4.20-5.40 [facility] Comment on above: Performed By: #### C BC #### [facility] [address] [place] [address] Dr. Henry Jones WBC 9.3 103/ul Normal 4.0-11.0 [facility] Comment on above: Performed By: #### C BC #### [facility] [address] [place] [address] Dr. Henry Jones BASO # 0.1 103/ul Normal 0.0-0.1 [facility] Comment on above: Performed By: #### C BC #### [facility] [address] [place] [address] Dr. Henry Jones Basophils/100 WBC (Bld) 0.4 % Normal 0.2-2.0 [facility] Comment on above: Performed By: #### C BC #### [facility] [address] [place] [address] Dr. Henry Jones EO # 0.1 103/ul Normal 0.0-0.7 [facility] Comment on above: Performed By: #### C BC #### [facility] [address] [place] [address] Dr. Henry Jones Eosinophils/100 WBC (Bld) 0.9 % Normal 0.9-7.0 [facility] Comment on above: Performed By: #### C BC #### [facility] [address] [place] [address] Dr. Henry Jones Erythrocyte distribution width (RBC) [Ratio] 13.7 % Normal 11.0-15.0 [facility] Comment on above: Performed By: #### C BC #### [facility] [address] [place] [address] Dr. Henry Jones Hematocrit (Bld) [Volume fraction] 41.7 % Normal 36.0-48.0 [facility] Comment on above: Performed By: #### C BC #### [facility] [address] [place] [address] Dr. Henry Jones Hemoglobin (Bld) [Mass/Vol] 13.5 g/dL Normal 12.0-16.0 [facility] Comment on above: Performed By: #### C BC #### [facility] [address] [place] [address] Dr. Henry Jones IG # 0.06 10e3/ul Critically high 0.00-0.03 [facility] Comment on above: Performed By: #### C BC #### [facility] [address] [place] [address] Dr. Henry Jones IG % 0.5 % Normal 0.0-0.5 [facility] Comment on above: Performed By: #### C BC #### [facility] [address] [place] [address] Dr. Henry Jones LYMPH # 2.3 103/ul Normal 1.2-3.8 [facility] Comment on above: Performed By: #### C BC #### [facility] [address] [place] [address] Dr. Henry Jones Lymphocytes/100 WBC (Bld) 17.2 % Critically low 20.5-60.0 [facility] Comment on above: Performed By: #### C BC #### [facility] [address] [place] [address] Dr. Henry Jones MANUAL DIFF REQ NO Normal [facility] Comment on above: Performed By: #### C BC #### [facility] [address] [place] [address] Dr. Henry Jones MCH (RBC) [Entitic mass] 27.6 pg Normal 26.7-34.0 [facility] Comment on above: Performed By: #### C BC #### [facility] [address] [place] [address] Dr. Henry Jones MCHC (RBC) [Mass/Vol] 32.4 g/dL Normal 29.9-35.2 [facility] Comment on above: Performed By: #### C BC #### [facility] [address] [place] [address] Dr. Henry Jones MCV (RBC) [Entitic vol] 85.1 fL Normal 81.0-99.0 [facility] Comment on above: Performed By: #### C BC #### [facility] [address] [place] [address] Dr. Henry Jones MONO # 1.0 103/ul Critically high 0.3-0.8 [facility] Comment on above: Performed By: #### C BC #### [facility] [address] [place] [address] Dr. Henry Jones Monocytes/100 WBC (Bld) 7.4 % Normal 1.7-12.0 [facility] Comment on above: Performed By: #### C BC #### [facility] [address] [place] [address] Dr. Henry Jones NEUT # 9.7 103/ul Critically high 1.4-6.5 [facility] Comment on above: Performed By: #### C BC #### [facility] [address] [place] [address] Dr. Henry Jones Neutrophils/100 WBC (Bld) 73.6 % Normal 43.0-75.0 [facility] Comment on above: Performed By: #### C BC #### [facility] [address] [place] [address] Dr. Henry Jones Platelet mean volume (Bld) [Entitic vol] 9.9 fL Normal 9.5-13.5 [facility] Comment on above: Performed By: #### C BC #### [facility] [address] [place] [address] Dr. Henry Jones PLT 380 103/ul Normal 150-450 [facility] Comment on above: Performed By: #### C BC #### [facility] [address] [place] [address] Dr. Henry Jones RBC 4.90 106/ul Normal 4.20-5.40 [facility] Comment on above: Performed By: #### C BC #### [facility] [address] [place] [address] Dr. Henry Jones WBC 13.1 103/ul Critically high 4.0-11.0 [facility] Comment on above: Performed By: #### C BC #### [facility] [address] [place] [address] Dr. Henry Jones Covid-19 PCR (CVDTB)on 12-20 SARS-CoV-2 (COVID-19) RNA IAIN+probe Ql (Unsp spec) Not detected Normal NOT DETECTED [facility] Comment on above: Result Comment: When diagnostic testing is negative, the possibility of a false negative should be considered in the context of a patient's recent exposures and the presence of clinical signs and symptoms consistent with SARS-CoV-2. This test is not yet approved or cleared by the [place] FDA. When there are no FDA-approved or cleared tests available, and other criteria are met, FDA can make tests available under an emergency access mechanism called an Emergency Use Authorization (EUA). The EUA for this test is supported by the [place] of Health and Human Service's declaration that circumstances exist to justify the emergency use of in vitro diagnostics for the detection and/or diagnosis of the virus that causes COVID-19. This EUA will remain in effect for the duration of the COVID-19 declaration justifying emergency of IVDs, unless it is terminated or revoked by the FDA (after which the test may no longer be used). Performed By: #### C VDTBH #### [facility] [address] [place] [address] Dr. Henry Jones LIPID PROFILEon 01-15-2022 CHOL-HDL RATIO NORM SEE BELOW Normal [facility] Comment on above: Result Comment: 3.3 - 4.4 LOW RISK 4.4 - 7.1 AVERAGE RISK 7.1 - 11.0 MODERATE RISK >11.0 HIGH RISK Performed By: #### T 3TOTAL #### [facility] [address] [address] [address] Henry Jones Cholesterol [Mass/Vol] 162 mg/dL Normal <=200 [facility] Comment on above: Performed By: #### T 3TOTAL #### [facility] [address] [address] [address] Henry Jones Cholesterol in HDL [Mass/Vol] 61 mg/dL Critically high 40-60 [facility] Comment on above: Performed By: #### T 3TOTAL #### [facility] [address] [address] [address] Henry Jones Cholesterol in LDL [Mass/Vol] 93.0 mg/dL Normal [facility] Comment on above: Performed By: #### T 3TOTAL #### [facility] [address] [address] [address] Henry Jones Cholesterol.total/C holesterol in HDL [Mass ratio] 2.7 {ratio} Normal [facility] Comment on above: Performed By: #### T 3TOTAL #### [facility] [address] [address] [address] Henry Jones HDL NORMAL > or = 60 mg/dl - LO W CARDIOVASCULAR RISK <40 mg/dl - HIGH CARDIOVASCULAR RISK Normal [facility] Comment on above: Performed By: #### T 3TOTAL #### [facility] [address] [address] [address] Henry Jones LDL CALC NORMAL SEE BELOW Normal [facility] Comment on above: Result Comment: <100 mg/dl OPTIMAL 100 - 129 mg/dl NEAR OR ABOVE OPTIMAL 130 - 159 mg/dl BORDERLINE HIGH 160 - 189 mg/dl HIGH >190 mg/dl VERY HIGH Performed By: #### T 3TOTAL #### [facility] [address] [address] [address] Henry Jones Triglyceride [Mass/Vol] 40 mg/dL Normal <=150 [facility] Comment on above: Performed By: #### T 3TOTAL #### [facility] [address] [address] [address] Henry Jones VLDL CALC 8.0 mg/dL Normal [facility] Comment on above: Performed By: #### T 3TOTAL #### [facility] [address] [address] [address] Henry Jones MAGNESIUMon 01-15-2022 Magnesium [Mass/Vol] 1.9 mg/dL Normal 1.8-2.4 [facility] Comment on above: Performed By: #### T 3TOTAL #### [facility] [address] [place] [address] Dr. Henry Jones NM STRESS/REST MULTIon 01-15 NM STRESS/REST MULTI Patient: ANTOINETTE LEE Exam Date: 01/15/2022 : 1955 Gender:F Ordering : [facility] Admission #: [id number] Family : DR JEISON RILEY . Order #: [id number] CLICK HERE TO VIEW EXAM RADIOLOGY REPORT PROCEDURE: RADIONUCLIDE IMAGING STRESS/REST MULTI COMPARISON: None. INDICATIONS: Chest pain, hypertension TECHNIQUE: Exam Description: Stress/Rest two day protocol gated SPECT Rest Imagin.5 mCi Tc-99m Cardiolite IV on 01/15/2022 Stress Imaging 25.2 mCi Tc-99m Cardiolite IV on 01/16/2022 Exercise Protocol: 0.4 mg Lexiscan given IV Heart Rate (bpm): Rest: 93 Max: 118 PMHR: 75 Blood Pressure: Rest: 150/80 Max: 150/80 Symptoms: Rest and peak stress ECG findings were normal and the exercise portion of the study was normal per attending physician Dr. Solis . For more details please see separate cardiac stress test report. FINDINGS: QUALITY OF STUDY: Good. PERFUSION DEFECT: None. LOCATION: N/A SIZE: N/A. SEVERITY: N/A. TYPE: N/A. WALL MOTION: Normal. LV SIZE: Normal. 60 mL. TID / TCD: Yes; 1.5 LVEF: Normal. Calculated EF 64%. SUMMARY: Myocardial perfusion imaging study has ABNORMAL findings. CONCLUSION: 1. No reversible ischemia 2. Transient ischemic dilation with a ratio of 1.5 3. Normal exercise test Dictated by: Nicole Banerjee MD on 01/17/2022 at 07:03 Approved by: Nicole Banerjee MD on 01/17/2022 at 07:06 Normal [facility] PROF CHEM 8 (BAS METB)on Anion gap [Moles/Vol] 7.2 mmol/L Normal [facility] Comment on above: Performed By: #### T 3TOTAL #### [facility] [address] [address] [address] Henry Jones Calcium [Mass/Vol] 9.2 mg/dL Normal 8.5-10.1 [facility] Comment on above: Performed By: #### T 3TOTAL #### [facility] [address] [place] [address] Dr. Henry Jones Chloride [Moles/Vol] 105 mmol/L Normal 98-107 [facility] Comment on above: Performed By: #### T 3TOTAL #### [facility] [address] [address] [address] Henry Jones CO2 [Moles/Vol] 29.9 mmol/L Normal 21.0-32.0 [facility] Comment on above: Performed By: #### T 3TOTAL #### [facility] [address] [place] [address] Dr. Henry Jones Creatinine [Mass/Vol] 0.72 mg/dL Normal 0.55-1.02 [facility] Comment on above: Performed By: #### T 3TOTAL #### [facility] [address] [place] [address] Dr. Henry Jones EGFR-AF IVORIAN >60 Normal >=[address] [facility] Comment on above: Performed By: #### T 3TOTAL #### [facility] [address] [place] [address] Dr. Henry Jones EGFR-NON AF IVORIAN >60 Normal >=60 [facility] Comment on above: Performed By: #### T 3TOTAL #### [facility] [address] [address] [address] Henry Jones Glucose [Mass/Vol] 113 mg/dL Critically high 74-106 [facility] Comment on above: Performed By: #### T 3TOTAL #### [facility] [address] [address] [address] Henry Jones Potassium [Moles/Vol] 4.1 mmol/L Normal 3.5-5.1 [facility] Comment on above: Performed By: #### T 3TOTAL #### [facility] [address] [address] [address] Henry Jones Sodium [Moles/Vol] 138 mmol/L Normal 136-145 [facility] Comment on above: Performed By: #### T 3TOTAL #### [facility] [address] [address] [address] Henry Jones Urea nitrogen [Mass/Vol] 24.0 mg/dL Critically high 7.0-18.0 [facility] Comment on above: Performed By: #### T 3TOTAL #### [facility] [address] [address] [address] Henry Jones Urea nitrogen/Creatinine [Mass ratio] 33.3 mg/mg Normal [facility] Comment on above: Performed By: #### T 3TOTAL #### [facility] [address] [address] [address] Henry Jones Anion gap [Moles/Vol] 8.3 mmol/L Normal [facility] Comment on above: Performed By: #### T 3TOTAL #### [facility] [address] [address] [address] Henry Jones Calcium [Mass/Vol] 9.7 mg/dL Normal 8.5-10.1 [facility] Comment on above: Performed By: #### T 3TOTAL #### [facility] [address] [address] [address] Henry Jones Chloride [Moles/Vol] 103 mmol/L Normal 98-107 [facility] Comment on above: Performed By: #### T 3TOTAL #### [facility] [address] [address] [address] Henry Jones CO2 [Moles/Vol] 31.4 mmol/L Normal 21.0-32.0 [facility] Comment on above: Performed By: #### T 3TOTAL #### [facility] [address] [place] [address] Dr. Henry Jones Creatinine [Mass/Vol] 0.81 mg/dL Normal 0.55-1.02 [facility] Comment on above: Performed By: #### T 3TOTAL #### [facility] [address] [place] [address] Dr. Henry Jones EGFR-AF IVORIAN >60 Normal >=60 [facility] Comment on above: Performed By: #### T 3TOTAL #### [facility] [address] [place] [address] Dr. Henry Jones EGFR-NON AF IVORIAN >60 Normal >=60 [facility] Comment on above: Performed By: #### T 3TOTAL #### [facility] [address] [place] [address] Dr. Henry Jones Glucose [Mass/Vol] 114 mg/dL Critically high 74-106 [facility] Comment on above: Performed By: #### T 3TOTAL #### [facility] [address] [place] [address] Dr. Henry Jones Potassium [Moles/Vol] 3.7 mmol/L Normal 3.5-5.1 [facility] Comment on above: Performed By: #### T 3TOTAL #### [facility] [address] [place] [address] Dr. Henry Jones Sodium [Moles/Vol] 139 mmol/L Normal 136-145 [facility] Comment on above: Performed By: #### T 3TOTAL #### [facility] [address] [place] [address] Dr. Henry Jones Urea nitrogen [Mass/Vol] 24.0 mg/dL Critically high 7.0-18.0 [facility] Comment on above: Performed By: #### T 3TOTAL #### [facility] [address] [place] [address] Dr. Henry Jones Urea nitrogen/Creatinine [Mass ratio] 29.6 mg/mg Normal [facility] Comment on above: Performed By: #### T 3TOTAL #### [facility] [address] [place], [place] [address] Dr. Henry Jones XR CHEST 1 Von 01-15-2022 XR CHEST 1 V EXAM: XR CHEST 1 V HISTORY: CHEST PAIN, UNSPECIFIED COMPARISON: Portable chest x-ray 07/28/2020 TECHNIQUE: Portable chest FINDINGS: Stable eventration of the right hemidiaphragm. Stable right lower hemithorax platelike atelectasis. Lung parenchyma exhibits no acute consolidation or infiltrate. No pneumothorax or pleural effusion. The heart is not discretely enlarged. No acute osseous abnormality IMPRESSION: No visualized gross acute abnormality. Electronically authenticated by: NICOLE HYATT Date: 2022-01-14 23:17 Normal [facility] Free T3on 10-22-2021 FT3 4.18 pg/mL Normal 2.00-4.40 [facility] Comment on above: Performed By: #### T SH, FT3, FT4 #### [facility] [address] [place], [place] [id number] Free T4on 10-22-2021 Free T4 [Mass/Vol] 1.20 ng/dL Normal 0.80-1.80 [facility] Comment on above: Performed By: #### T SH, FT3, FT4 #### [facility] [address] [place], [place] [id number] Q - T3 TOTALon 10-22-2021 T3, TOTAL 173 ng/dL Normal 76-181 [facility] Comment on above: Order Comment: [facility] performed at: Q[facility], [facility], [address] [place] [address], [address] [place] [address], [place], [address], [employer]: Meet Loredo MD [facility] Date/Time: [facility] Results Received Date/Time: [facility] Reported Date/Time: Performed By: #### 8 [id number], [id number] #### [facility] Default [address] [place] [address] Q - T3,REVERSE,LC/MS/MSon T3 REVERSE, LC/MS/MS 19 ng/dL Normal 8-25 [facility] [employer] Comment on above: Order Comment: [facility] performed at: [facility], [facility], [address] [facility] , [place], [place], , [employer]: David Baldwin M.D.,PhD [facility] Date/Time: [id number] [facility] Results Received Date/Time: [facility] Reported Date/Time: Result Comment: This test was developed and its analytical performance characteristics have been determined by [employer] [place], [place]. It has not been cleared or approved by the [place].S. Food and Drug Administration. This assay has been validated pursuant to the CLIA regulations and is used for clinical purposes. Performed By: #### 8 [id number], [id number] #### [facility] [address] [place] [address] TSHon 10-22-2021 TSH 0.129 uIU/mL Low 0.400-4.500 [facility] [employer] Comment on above: Performed By: #### T SH, FT3, FT4 #### [facility] [address] [place], [place] [id number] XR lumbar spine min 4V*on XR lumbar spine min 4V* [facility] [place] [address] [place] [address] XRay Report Signed Patient: Antoinette Lee MR#: [id number] : 1955 Acct:[id number] Age/Sex: 66 / F ADM Date: 07/18/21 Loc: ICXD Room: Type: [facility] Attending Dr: Ramiro Gifford MD Ordering Provider: Ramiro Gifford MD Date of Service: 07/18/21 XR/XR lumbar spine min 4V*: M54.50 Copies to: Ramiro Gifford MD 6 views of the lumbar spine HISTORY: LEFT lower back and hip pain for 2 months COMPARISON:None There are straightening of lumbar lordosis. No acute lumbar spine fracture is identified. Mild degenerative listhesis identified. Multilevel advanced spondylosis and lower lumbar facet degenerative changes identified. Diffuse osteopenia identified. ... Lateral curvature of lumbar spine present. No paraspinal abnormality seen. SI joints are maintained. XR/XR lumbar spine min 4V* IMPRESSION: Advanced lumbar degeneration. Impression dictated by: Phong Caldwell M.D.07/18/2021 2:12 PM Dictation Location: [place] [address] Transcribed By: [facility] 07/18/21 1412 Dictated By: Phong Caldwell DO 07/18/21 1410 Signed By: 07/18/21 1412 [facility] Consent for COVID Vaccineon 11-12-2020 SARS-CoV-2 (COVID-19) RNA IAIN+probe Ql (Unsp spec) [id number]# 1.00CD:127 [facility] Consent for COVID Vaccineon 10-12-2020 SARS-CoV-2 (COVID-19) RNA IAIN+probe Ql (Unsp spec) [id number] .00CD:127 [facility] Consent for Treatmenton 09-19 Consent for Treatment [id number] .00CD:127 [facility] Coding Summary.on 10-11-2020 Coding Summary. CODING DATE: 10/11/2020 FINAL [facility] STATUS: PAYOR: Government APC DESCRIPTION 1492 [employer] - Level 1B ($11-$20) ADMIT DX: REASON FOR VISIT DX: Z23 Encounter for immunization FINAL DX: PRINCIPAL: Z23 Encounter for immunization SECONDARY: PYMT PROC APC STAT DESCRIPTION DOCTOR NAME DATE NOTE: The code number assigned matches the documented diagnosis and / or procedure in the patient's chart. However, the narrative phrase printed from the coding software may appear abbreviated, or result in slightly different terminology. Coded By: Talia Horton Date Saved: 10/11/2020 12:05 pm [facility] Vital Signs Date Time Vital Sign Value Performing Clinician Faci lity 09-08-2024 13:58-0500 Body height 160 cm Indra Itzkowitz DO Work Phone: [facility] 09-08-2024 13:58-0500 Body mass index (BMI) [Ratio] 47.83 kg/m2 Indra Itzkowitz DO Work Phone: [facility] 09-08-2024 13:58-0500 Body weight 122.47 kg Indra Itzkowitz DO Work Phone: [facility] 09-08-2024 13:58-0500 Diastolic blood pressure 74 mm[Hg] Indra Itzkowitz DO Work Phone: [facility] 09-08-2024 13:58-0500 Systolic blood pressure 150 mm[Hg] Indra Itzkowitz DO Work Phone: [facility] 06-28-2024 07:51-0500 Body height 157.5 cm Ramiro Gifford MD Work Phone: [facility] 06-28-2024 07:51-0500 Body mass index (BMI) [Ratio] 48.1 kg/m2 Ramiro Gifford MD Work Phone: [facility] 06-28-2024 07:51-0500 Body weight 119.3 kg Ramiro Gifford MD Work Phone: [facility] 06-28-2024 07:51-0500 Diastolic blood pressure 80 mm[Hg] Ramiro Gifford MD Work Phone: [facility] 06-28-2024 07:51-0500 Heart rate 68 /min Ramiro Gifford MD Work Phone: [facility] 06-28-2024 07:51-0500 SaO2% (BldA) [Mass fraction] 98 % Ramiro Gifford MD Work Phone: [facility] 06-28-2024 07:51-0500 Systolic blood pressure 132 mm[Hg] Ramiro Gifford MD Work Phone: [facility] 04-12-2024 09:07-0400 Body mass index (BMI) [Ratio] 48.1 kg/m2 Ramiro Gifford MD Work Phone: [facility] 04-12-2024 [id number] Body weight 119.3 kg Ramiro Gifford MD Work Phone: [facility] Encounters Encounter Date Encounter Type Care Provider Facility Start: 09-08-2024 End: 09-08-2024 Office outpatient new 60 minutes Indra Hung Asha DO Work Phone: [facility] Comment on above: Cyst of right breast (Primary Dx); Abnormal mammography Start: 09-08-2024 End: 09-08-2024 ambulatory INDRA BAUER Not Available Start: 08-05-2024 End: 08-05-2024 ambulatory RAMIRO GIFFORD Not Available Start: 07-30-2024 End: 07-30-2024 ambulatory RAMIRO GIFFORD Not Available Start: 07-19-2024 End: 07-19-2024 Bamboo flowsheet Buster Fontaine MD Work Phone: [facility] Start: 07-19-2024 End: 07-19-2024 Bamboo flowsheet Buster Fontaine MD Work Phone: [facility] Start: 07-19-2024 End: 07-19-2024 ambulatory BUSTER FONTAINE Not Available Start: 06-28-2024 End: 06-28-2024 Bamboo flowsheet Ramiro Gifford MD Work Phone: [facility] Start: 06-28-2024 End: 06-28-2024 Bamboo flowsheet Ramiro Gifford MD Work Phone: [facility] Start: 06-28-2024 End: 06-28-2024 Office outpatient visit 25 minutes Ramiro Gifford MD Work Phone: [facility] Comment on above: 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, mixed type (Primary Dx); Controlled substance agreement signed; Idiopathic sleep related nonobstructive alveolar hypoventilation; Paralysis of diaphragm; Benign hypertension (CMS/HCC); Hypertensive nephropathy (CMS/HCC); Chronic kidney disease (CKD), stage II (mild); Impaired glucose tolerance Start: 06-28-2024 End: 06-28-2024 ambulatory RAMIRO GIFFORD Not Available Start: 04-12-2024 End: 04-12-2024 Office outpatient visit 25 minutes Ramiro Gifford MD Work Phone: [facility] Comment on above: Central hypothyroidi sm (CMS/HCC) (Primary Dx); Acquired hypothyroidism (CMS/HCC); Maggy's thyroiditis (CMS/HCC); ESS (euthyroid sick syndrome); Chronic fatigue; Morbid (severe) obesity due to excess calories (CMS/HCC) Start: 04-12-2024 End: 04-12-2024 ambulatory RAMIRO GIFFORD Not Available Start: 01-26-2024 End: 01-26-2024 ambulatory RAMIRO GIFFORD Not Available Start: 10-13-2023 End: 10-13-2023 ambulatory RAMIRO GIFFORD Not Available Start: 09-15-2023 End: 09-15-2023 ambulatory RAMIRO GIFFORD Not Available Start: 09-16-2022 End: 09-17-[address] RAMIRO GIFFORD . Facility:[facility] Start: 04-23-2022 End: 04-24-[address] RAMIRO GIFFORD . Facility:[facility] Start: 02-04-2022 End: 02-05-[address] RAMIRO GIFFORD . Facility:[facility] Start: 01-15-2022 End: 01-17-[address] JEISON RILEY Facility:[facility] Procedures Date Procedure Procedure Detail Performing Clinician Start: 08-05-2024 Mammography Indra barker DO Work Phone: Start: 07-19-2024 End: 07-19-2024 Oph medical xm&eval comprhnsv estab pt 1/> Cortical age-related cataract of both eyes Buster Fontaine MD Work Phone: Comment on above: Cortical age-related cataract of both eyes (Primary Dx); Early dry stage nonexudative age-related macular degeneration of both eyes; Nevus of choroid of right eye Start: 07-03-2023 Mammography Ramiro chapman MD Work Phone: Start: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 file prior to visit. 1. 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 I discussed the patient's current psychosocial and physical condition and the stress impact upon them. I reviewed the multiple unique laboratories and explained the results to the patient. The patient has been re-educated concerning the above diagnoses and that the treatment for some of these may not be considered the standard of care, including TSH suppression when utilized. The patient has been re-educated and instructed concerning medication timing, diet, exercise, and stress reduction as appropriate. I reviewed the patient's current prescriptions and discussed the possibilities of medication renewals, adjustments, new medication start, or stop medication as appropriate. The patient has been instructed to follow up and bring a diet and exercise log, obtain the unique laboratory tests ordered, and the importance of follow up and compliance. The patient was given a chance to ask questions today and all questions were answered. The patient is to contact us if any other questions arise or if any problems occur. - thyroid ([employer] Thyroid) 60 MG tablet; Take 1 tablet (60 mg) by mouth in the morning and 1 tablet (60 mg) in the evening. Take before meals. Dispense: 180 tablet; Refill: 1 - T3, reverse; Future - T3; Future - T3, free; Future - T4, free; Future - T3, reverse - T3 - T3, free - T4, free 2. Acquired hypothyroidism (CMS/HCC) Chronic problem that was the original cause of thyroid treatment. She has since developed central hypothyroidism. 3. Maggy's thyroiditis (CMS/HCC) Chronic problem that is clinically asymptomatic and was original cause of the acquired hypothyroidism. Monitor longitudinally 4. ESS (euthyroid sick syndrome) She still has a significantly elevated reverse T3 although slightly better than previous. Her ratio is still below the normal range. I do not think we can help her further with medication. We extensively discussed diet and exercise again. In prescribing a renewal to their current medication, consideration of the following encompasses moderate decision making; the current prescriptions and supplements, the current allergies and medication intolerances, current medical conditions, and potential drug interactions. Any changes to risks, benefits, and reason for renewing their current medication due to the above were discussed. The patient was given a chance to ask questions today and all questions were answered. The patient is to contact us if any other questions arise or if any problems occur. (Utilizing the original guidelines or the 2020 office/outpatient code guidelines for selecting the level of E/M service, In both sets of guidelines, prescription drug management appears in the moderate medical decision making (MDM) row. Neither the original guidelines nor the new guidelines state that a new prescription or change is needed in order to credit prescription drug management) - thyroid ([employer] Thyroid) 60 MG tablet; Take 1 tablet (60 mg) by mouth in the morning and 1 tablet (60 mg) in the evening. Take before meals. Dispense: 180 tablet; Refill: 1 5. Chronic fatigue Chronic problem, stable, complex in nature with moderate decision making. 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 We discussed how this is improved significantly. We discussed that the patient will almost certainly need to continue to make lifestyle changes including diet, sleep, exercise, and stress management as appropriate. We discussed how this is almost always a multifactorial problem. We further discussed how we will continue to search for refinements in their current treatments or evaluation for further disease processes and then support or treat them as appropriate. We discussed how we can frequently improve the symptoms, but may not be able to completely cure or resolve the issue. The patient was given a chance to ask questions and all questions were answered. - T3, reverse; Future - T3; Future - T3, free; Future - T4, free; Future - T3, reverse - T3 - T3, free - T4, free 6. Morbid (severe) obesity due to excess calories (CMS/HCC) Mildly improved. 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 Benign hypertension (CMS/HCC) Essential hypertension, benign Hypertensive nephropathy (CMS/HCC) Unspecified hypertensive kidney disease with chronic kidney disease stage I through stage IV, or unspecified Chronic kidney disease (CKD), stage II (mild) Chronic kidney disease, Stage II (mild) Impaired glucose tolerance Impaired glucose tolerance test documented in this encounter [facility] Evaluation note Note Date & Type Note Facility Evaluation note Diagnosis Central hypothyroidism (CMS/HCC)- Primary Unspecified hypothyroidism Acquired hypothyroidism (CMS/HCC) Unspecified hypothyroidism Maggy's thyroiditis (CMS/HCC) Chronic lymphocytic thyroiditis ESS (euthyroid sick syndrome) Euthyroid sick syndrome Chronic fatigue Other malaise and fatigue Morbid (severe) obesity due to excess calories (CMS/HCC) documented in this encounter [facility] Evaluation note Note Date & Type Note Facility Evaluation note Diagnosis Cortical age-related cataract of both eyes- Primary Early dry stage nonexudative age-related macular degeneration of both eyes Nevus of choroid of right eye documented in this encounter [facility] Evaluation note Note Date & Type Note Facility Evaluation note Diagnosis Cyst of right breast- Primary Abnormal mammography Abnormal mammogram, unspecified documented in this encounter [facility] Summary Purpose Family History No Family History Records FoundNo Family History Records FoundNo Family History Records FoundNo Family History Records FoundNo Family History Records Found Advance Directives No Advanced Directives Records FoundDocuments on File Type Date Recorded 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 Expl anation Advance Directives and Living Will 10/24/2017 Power of General Contractor Advance Directives and Living Will 10/24/2017 2017-10-24 Living wi ll Additional Source Comments INFORMATION SOURCE (unrecogn ized section and content) DATE CREATED AUTHOR 02/03/2021 [facility] DATE CREATED AUTHOR AUTHOR'S ORGANIZ ATION 07/29/2021 [facility] DATE CREATED AUTHOR AUTHOR'S ORGANIZ ATION 07/31/2022 [facility] DATE CREATED AUTHOR AUTHOR'S ORGANIZ ATION 10/11/2022 [facility] DATE CREATED AUTHOR AUTHOR'S ORGANIZ ATION 09/10/2024 [facility] EPIC Care Teams (unrecognized sec tion and content) Final Coat Sprayer Relationship Specialty Start Date End Date Ramiro Gifford MD (Fax) PCP - General Family Medicine 01/16/23 Final Coat Sprayer Relationship Specialty Start Date End Date Ramiro Gifford MD (Fax) PCP - General Family Medicine 01/16/23 Final Coat Sprayer Relationship Specialty Start Date End Date Ramiro Gifford MD [address] [place] [id number] PCP - General Family Medicine 01/16/23 Final Coat Sprayer Relationship Specialty Start Date End Date Ramiro Gifford MD [address] [place] [address] (Fax) PCP - General Family Medicine 01/16/23 Final Coat Sprayer Relationship Specialty Start Date End Date Ramiro Gifford MD [address] [place] [address] (Fax) PCP - General Family Medicine 01/16/23 Final Coat Sprayer Relationship Specialty Start Date End Date Ramiro Gifford MD [address] [place] [phone] (Fax) PCP - General Family Medicine 01/16/23 Reason for Visit (unrecogniz ed section and content) Reason Comments Hypertension Sleeping Problem Reason Comments Eye Exam Macular Degeneration Reason Comments Breast consult, abnormal mamms Specialty Diagnoses / Procedures Referred By Contac t Referred To Contact General Surgery Diagnoses Abnormal mammography Procedures SD OFFICE/OUTPATIENT NEW HIGH MDM 60 MINUTES Ramiro Gifford MD [address] [place] [address] Phone: tel: fax:+ Olu Leal DO [address] [address] Phone: tel: fax: Referral ID Status Reason Start Date Expiration Date V isits Requested Visits Authorized [id number] Closed Specialty Services Required 08/17/2024 02/13/2025 1 1 FOR RECORDS PERTAINING TO PATIENTS WHO ARE OR HAVE BEEN ENROLLED IN A CHEMICAL DEPENDENCY/SUBSTANCEABUSE PROGRAM, SOME INFORMATION MAY BE OMITTED. This clinical summary was aggregated from multiple sources. Caution should be exercised in using it in the provision of clinical care. This summary normalizes information from multiple sources, and as a consequence, information in this document may materially change the coding, format and clinical context of patient data. In addition, data may be omitted in some cases. CLINICAL DECISIONS SHOULD BE BASED ON THE PRIMARY CLINICAL RECORDS. [facility]. provides no warranty or guarantee of the accuracy or completeness of information in this document.
--- NOTE | 2024-09-18 04:46 | ED_ITS ---
HPI - Chest Pain General Chief Complaint: Chest Pain Stated Complaint: chest pain Time Seen by Provider: 09/18/24 04:36 Source: patient Mode of arrival: Wheelchair Limitations: no limitations History of Present Illness HPI narrative: The patient is a 69 years old female with past medical history of hypertension, and a very strong family history of cardiac disease, with her brother as well as her father of coronary artery disease, the patient is coming to the ED with a chest pain that started an hour ago at 3 3 AM that woke him up from sleep The pain is pressure-like associated with shortness of breath. Patient mentioned that it was preceded all day by feeling that she is having indigestion She had no nausea or vomiting at any time. She had no history of smoking cigarettes and she does not have any history of any cardiac events The patient have history of hypertension has been taking her medication Related Data Home Medications ?Medication ?Instructions ?Recorded ?Confirmed metoprolol succinate 50 mg capsule 50 mg PO DAILY 09/16/23 09/16/23 sprinkle, ext. release 24 hr thyroid (pork) 60 mg tablet (GLOVE CUTTER 60 mg PO DAILY 09/16/23 09/16/23 Thyroid) trazodone 50 mg tablet 50 mg PO .at night PRN insomnia 09/16/23 09/16/23 zaleplon 10 mg capsule 10 mg PO .qhs 09/16/23 09/16/23 Previous Rx's ?Medication ?Instructions ?Recorded iunztknyhn-cmglsdxbmzupb-reupdldt 1 cap PO Q8H PRN pain/headache #7 09/16/23 50 mg-300 mg-40 mg capsule caps (Fioricet) prochlorperazine maleate 10 mg 10 mg PO Q12H PRN nausea and 09/16/23 tablet (Compazine) vomiting, headache 7 days #7 tabs Allergies Allergy/AdvReac Type Severity Reaction Status Date / Time magnesium Allergy Mild headache Verified 09/18/24 04:36 ketorolac (From Toradol) Allergy Unknown headcahe Verified 09/18/24 04:36 metformin Allergy Mild headache Uncoded 09/18/24 04:36 Review of Systems ROS Status of ROS 10 or more systems reviewed and unremark able except as noted in history and below PFSH PFSH Social History Smoking status: Never smoker Little interest or pleasure in doing things: not at all Feeling down, depressed, or hopeless: not at all Exam Narrative Exam Narrative: Nurses notes and vital signs reviewed and patient is not hypoxic. General: Well-appearing and in no apparent distress. Skin: Warm, dry, no pallor noted. No rash. Head: Normocephalic, atraumatic. Neck: Supple, non-tender. Eye: Pupils are equal, round and EOMI. No scleral icterus. Ears, Nose, Mouth, and Throat: TM are clear, no nasal mucosal hypertrophy. Oral mucosa is moist, no posterior oropharynx erythema, uvula is mid-line Cardiovascular: Regular Rate and Rhythm without murmur, gallop or rub. Respiratory: No accessory muscle use or respiratory distress. Lungs are clear to auscultation, no wheezing, rales or rhonchi Chest Wall: no tenderness Back: No midline thoracic or lumbar vertebral tenderness. No CVA tenderness Musculoskeletal: normal ROM, no calf or popliteal tenderness, no lower extremity edema/swelling GI: Abdomen is soft, non-distended. Normal bowel sounds. No masses appreciated. No tenderness to palpation. No rebound, guarding, or rigidity noted. Neurological: A&O x4. No cranial nerve dysfunction observed. Constitutional Vital Signs, click to edit/add: Last Vital Signs Temp 98.3 F 09/18/24 04:36 Pulse 86 09/18/24 04:36 Resp 18 09/18/24 04:36 BP 198/85 H 09/18/24 04:36 Pulse Ox 93 L 09/18/24 04:36 O2 Del Method Room Air 09/18/24 04:36 Course Vital Signs Vital signs: Vital Signs Temperature 98.3 F 09/18/24 04:36 Pulse Rate 86 09/18/24 04:36 Respiratory Rate 18 09/18/24 04:36 Blood Pressure 198/85 H 09/18/24 04:36 Pulse Oximetry 93 L 09/18/24 04:36 Oxygen Delivery Method Room Air 09/18/24 04:36 Temperature 98.3 F 09/18/24 04:36 Pulse Rate 86 09/18/24 04:36 Respiratory Rate 18 09/18/24 04:36 Blood Pressure 198/85 H 09/18/24 04:36 Pulse Oximetry 93 L 09/18/24 04:36 Oxygen Delivery Method Room Air 09/18/24 04:36 MDM - Chest Pain MDM Narrative Medical decision making narrative: The patient EKG in the ER showing sinus rhythm with a heart rate of [address] elevation noted the EKG compared to the old EKG, some mild ST depression seen in V4 V5 and V6 compared to the baseline EKG from 2023 The patient have high risk factors including hypertension and a family history and the presentation The patient pain responded to nitroglycerin to go down to 3/10 The patient creatinine is 1.3 which is showing mild acute kidney injury but the troponin initially is negative and she will definitely have another troponin drawn CT angio of the chest ordered Lab Data Labs: Lab Results 09/18/24 Range/Units 04:45 WBC 8.2 (4.0-11.0) 10^3/uL RBC 4.05 L (4.20-5.40) 10^6/uL Hgb 11.6 L (12.0-16.0) g/dL Hct 35.5 L (36.0-48.0) % MCV 87.7 (81.0-99.0) fL MCH 28.6 (26.7-34.0) pg MCHC 32.7 (29.9-35.2) g/dL RDW 12.9 (11.0-15.0) % Plt Count 330 (150-450) 10^3/uL MPV 9.9 (9.5-13.5) fL Neut % (Auto) 58.2 (43.0-75.0) % Lymph % (Auto) 29.4 (20.5-60.0) % [place] % (Auto) 8.7 (1.7-12.0) % Eos % (Auto) 2.7 (0.9-7.0) % Baso % (Auto) 0.6 (0.2-2.0) % Neut # (Auto) 4.8 (1.4-6.5) 10^3/uL Lymph # (Auto) 2.4 (1.2-3.8) 10^3/uL [place] # (Auto) 0.7 (0.3-0.8) 10^3/uL Eos # (Auto) 0.2 (0.0-0.7) 10^3/uL Baso # (Auto) 0.1 (0.0-0.1) 10^3/uL Abs Immat Gran (auto) 0.03 (0.00-0.03) 10^3/uL Imm/Tot Granulo (auto) 0.4 (0.0-0.5) % PT 10.5 (9.0-11.6) sec INR 0.99 Sodium 136 (136-145) mmol/L Potassium 4.0 (3.5-5.1) mmol/L Chloride 102 (98-107) mmol/L Carbon Dioxide 28.2 (21.0-32.0) mmol/L Anion Gap 9.8 BUN 30.0 H (7.0-18.0) mg/dL Creatinine 1.33 H (0.55-1.02) mg/dL Est GFR ( Amer) 48 L (>=60 mL/min/1.73m^2) Est GFR (Non-Af Amer) 40 L (>=60 mL/min/1.73m^2) BUN/Creatinine Ratio 22.6 Glucose 117 H (74-106) mg/dL Calcium 9.8 (8.5-10.1) mg/dL Total Bilirubin 0.4 (0.2-1.0) mg/dL AST 16 (15-37) U/L ALT 22 (14-59) U/L Alkaline Phosphatase 82 (46-116) U/L Troponin I High Sens 11.0 (4.0-51.3) pg/mL Total Protein 7.1 (6.4-8.2) g/dL Albumin 3.2 L (3.4-5.0) g/dL Globulin 3.9 g/dL Albumin/Globulin Ratio 0.8 Discharge Plan Discharge Patient Disposition: Still a Patient
[2024-09-18 04:54] LABS: Basophils Absolute Auto 0.1 10^3/uL (0.0-0.1); Basophils Percent Auto 0.6 % (0.2-2.0); Eosinophils Absolute Auto 0.2 10^3/uL (0.0-0.7); Eosinophils Percent Auto 2.7 % (0.9-7.0); Hematocrit 35.5 % (36.0-48.0); Hemoglobin 11.6 g/dL (12.0-16.0); Immature Granulocytes Abs Auto 0.03 10^3/uL (0.00-0.03); Immature Granulocytes Pct Auto 0.4 % (0.0-0.5); Lymphocytes Absolute Auto 2.4 10^3/uL (1.2-3.8); Lymphocytes Percent Auto 29.4 % (20.5-60.0); Mean Corpuscular HGB Conc 32.7 g/dL (29.9-35.2); Mean Corpuscular Hemoglobin 28.6 pg (26.7-34.0); Mean Corpuscular Volume 87.7 fL (81.0-99.0); Mean Platelet Volume 9.9 fL (9.5-13.5); Monocytes Absolute Auto 0.7 10^3/uL (0.3-0.8); Monocytes Percent Auto 8.7 % (1.7-12.0); Neutrophils Absolute Auto 4.8 10^3/uL (1.4-6.5); Neutrophils Percent Auto 58.2 % (43.0-75.0); Platelet Count 330 10^3/uL (150-450); Red Blood Count 4.05 10^6/uL (4.20-5.40); Red Cell Distribution Width 12.9 % (11.0-15.0); White Blood Count 8.2 10^3/uL (4.0-11.0)
[2024-09-18] MEDS: ASPIRIN 81 MG TAB.CHEW 324 MG PO (05:03)
[2024-09-18] MEDS: NITROGLYCERIN 0.4 MG BOTTLE SL ×2 (05:04→05:43)
[2024-09-18 05:14] LABS: INR 0.99; Prothrombin Time 10.5 sec (9.0-11.6)
[2024-09-18 05:19] LABS: Alanine Aminotransferase 22 U/L (14-59); Albumin Globulin Ratio 0.8; Albumin Level 3.2 g/dL (3.4-5.0); Alkaline Phosphatase 82 U/L (46-116); Anion Gap 9.8; Aspartate Amino Transferase 16 U/L (15-37); BUN Creatinine Ratio 22.6; Bilirubin Total 0.4 mg/dL (0.2-1.0); Calcium 9.8 mg/dL (8.5-10.1); Carbon Dioxide 28.2 mmol/L (21.0-32.0); Chloride 102 mmol/L (98-107); Estimated GFR (African America 48 (>=60 mL/min/1.73m^2); Estimated GFR (Non-African Ame 40 (>=60 mL/min/1.73m^2); Globulin 3.9 g/dL; Glucose 117 mg/dL (74-106); Sodium 136 mmol/L (136-145); Total Protein 7.1 g/dL (6.4-8.2)
--- NOTE | 2024-09-18 05:44 | CT_ITS ---
[address] [address] Patient Name: ANTOINETTE MOREL MRN: [id number] date: 1955 Sex: F Assigned Patient Location: ED.MAIN Current Patient Location: ED.MAIN Accession/Order Number: [id number] Exam Date: 09/18/2024 08:45 Report Date: 09/18/2024 08:52 At the request of: ROSSANA QUAN MD Procedure: CT angio chest CT angio chest 09/18/2024 8:39 AM SIGN AND SYMPTOMS: Chest pain CONTRAST: 100 mL of intravenous Omnipaque 350 TECHNIQUE: Multidetector CT axial slices of the chest were obtained with IV contrast. Multiplanar reformats were performed and viewed on a separate workstation and reviewed to further define anatomy and possible pathology. CT was performed with one or more of the following dose reduction techniques: Automated exposure control, adjustment of the mA and/or kV according to patient size, or use of iterative reconstruction technique. COMPARISON: 07/28/2020. FINDINGS: Lower neck: Thyroid gland within normal limits, no supraclavicle adenopathy. Vessels: Atherosclerotic changes are noted in the thoracic aorta and coronary arteries. There is no evidence of pulmonary embolism. Mediastinum and Vika: Within normal limits. Heart: Normal size. No pericardial effusion. Airways: Within normal limits Lungs: There is dependent airspace opacity at the right lung base which most likely represents atelectasis. There is chronic elevation of the right hemidiaphragm which is unchanged. Previous patchy airspace opacities have resolved. Pleura: Within normal limits. Chest Wall: Within normal limits. Upper Abdomen: Within normal limits. Bones: Degenerative changes are noted in the thoracic spine. CT/CT angio chest IMPRESSION: There is no evidence of pulmonary embolism. There is chronic elevation right hemidiaphragm with atelectasis at the right lung base similar to the prior exam. There has been interval improvement in hazy airspace opacities in the lung parenchyma bilaterally. Impression dictated by: Adrian Hollingsworth M.D.09/18/2024 8:52 AM Dictation Location: [place] Electronically authenticated by: [id number] Y Date: 09/18/2024 08:52
[2024-09-18 07:59] LABS: Troponin I High Sensitivity 14.8 pg/mL (4.0-51.3)
== END 2024-09-18 09:09 | disposition home or self-care (01) ==
PROVIDERS: Emergency Provider Emergency Medicine; PCP Family Medicine
DX: R07.9 Chest pain, unspecified (principal); I10 Essential (primary) hypertension; Z82.49 Family history of ischemic heart disease and other diseases of the circulatory system; R06.02 Shortness of breath
CPT/HCPCS: 36415; 71045; 71275; 80053; 84484; 85025; 85610; 93005; 99285

== ENCOUNTER 2025-03-25 23:08 | Emergency (ER) | payer MEDICARE, OTHER, SELFPAY ==
[2025-03-25 23:13] VITALS: BP 148/84; PULSE 80; TEMP 36.3; O2SAT 95; BMI 47.8
--- NOTE | 2025-03-25 23:19 | XR_ITS ---
[address] [address] Patient Name: ANTOINETTE MOREL MRN: [id number] date: 1955 Sex: F Assigned Patient Location: ER Current Patient Location: ED.MAIN Accession/Order Number: [id number] Exam Date: 03/25/2025 23:20 Report Date: 03/25/2025 23:48 At the request of: ABIODUN TIJERINA MD Procedure: XR foot RT min 3V 3 views right foot plain film COMPARISON:None HISTORY: Right fifth digit injury ACUTE FINDINGS: No acute displaced fracture DEGENERATIVE CHANGE: Unremarkable SOFT TISSUE FINDINGS: Diffuse soft tissue swelling JOINT EFFUSION: None POSTOP CHANGES: None BONE MINERALIZATION: Adequate XR/XR foot RT min 3V IMPRESSION: No acute displaced fracture. Soft tissue swelling. Impression dictated by: Phong Caldwell M.D. 03/25/2025 11:48 PM Dictation Location: [place] [address] Electronically authenticated by: [id number] Y Date: 03/25/2025 23:48
--- OUTSIDE RECORDS SUMMARY | 2025-03-25 23:30 | XMS_ITS | CCD ---
Author Organization [facility] CliniSypr Care Team Providers Care Sign Installer Name Role Phone ИРИНА ., DR ISABEL Admitting Unavailable HEMEYER ., DR ISABEL Attending Unavailable HEMEYER ., DR ISABEL Consulting Unavailable HEMEYER ., DR ISABEL Primary Care Unavailable OSVALDO, DR JEISON Cabrales Attending Unavailable LESLIE, DR NICOLE Hoskins Consulting Unavailable OSVALDO, DR JEISON Cabrales Admitting Unavailable HEMEYER ., DR ISABEL Primary Care Unavailable OSVALDO, DR JEISON Cabrales Consulting Unavailable ABIODUN TIJERINA Consulting Unavailable OLENA, NICOLE Consulting Unavailable NOEMY PAUL Consulting Unavailable HEMEYER ., DR ISABEL Admitting Unavailable HEMEYER ., DR ISABEL Attending Unavailable HEMEYER ., DR ISABEL Consulting Unavailable HEMEYER ., DR ISABEL Primary Care Unavailable HEMEYER ., DR ISABEL Admitting Unavailable HEMEYER ., DR ISABEL Attending Unavailable HEMEYER ., DR ISABEL Consulting Unavailable HEMEYER ., DR ISABEL Primary Care Unavailable Bijanyer Ramiro REVELES Primary Care Provider [phone] Ramiro Gifford MD Primary Care Provider Ramiro Gifford MD Primary Care Provider [phone] INDRA BAUER Attending Unavailable HEMEYER, RAMIRO Hernandez Referring Unavailable HEMEYER, RAMIRO Hernandez Attending Unavailable HEMEYER, RAMIRO Hernandez Attending Unavailable HEMEYER, RAMIRO Hernandez Attending Unavailable HEMEYER, RAMIRO Hernandez Attending Unavailable INDRA BAUER Attending Unavailable HEMEYER, RAMIRO Hernandez Attending Unavailable HEMEYER, EDDEONTE Hernandez Attending Unavailable BUSTER FONTAINE Attending Unavailable HEMEYER, RAMIRO Hernandez Referring Unavailable HEMEYER, EDDEONTE Hernandez Referring Unavailable Hemeyer Ramiro REVELES Primary Care Provider Indra Bauer DO Attending Provider [phone] Indra Bauer Attending Unavailable Indra Baure Admitting Unavailable Ramiro Gifford Primary Care Unavailable Allergies Allergy Classification Reported Allergen(s) Allergy Type Date of Onset Reaction(s) Facility (1 source) Androstenedione Drug Allergy [facility] (1 source) Ketorolac Drug Allergy [facility] (19 sources) Magnesium Drug Allergy 2 Nausea Only [facility] (19 sources) metFORMIN Drug Allergy 2 [facility] (19 sources) traMADol Drug Allergy 2 Nausea Only [facility] Medications Current Medications Medication Drug Class(es) Dates [...] (Therapy completed) albuterol 0.83 mg/ml inhalation solution (20 sources) beta2-Adrenergic Agonist Start: 09-15-2023 albuterol (2.5 [...] for wheezing 54 g 1 09/15/2023 Active cefuroxime 500 mg oral tablet (2 sources) Cephalosporin Antibacterial Start: 12-02-2024 End: 12-20-2024 take 1 tablet by mouth in the morning cefuroxime (Ceftin) 500 MG tablet Indications: Acute non-recurrent sinusitis, unspecified location Take 1 tablet (500 mg) by mouth in the morning and 1 tablet (500 mg) before bedtime. Do all this for 7 days. 14 tablet 12/02/2024 12/20/2024 Discontinued (Therapy completed) hydroCHLOROthiazide 25 mg / losartan potassium 100 mg oral tablet (20 sources) Thiazide Diuretic, Angiotensin 2 Receptor Deepa Start: 10-18-2024 End: 10-18-2025 take 1 tablet by mouth once daily losartan-hydroCHL OROthiazide (Hyzaar) 100-25 MG tablet Indications: Benign hypertension Take 1 tablet by mouth Daily 90 tablet 1 12/20/2024 06/18/2025 Active Start: 01-26-2024 End: 12-25-2024 take 1 tablet by mouth once daily losartan-hydroCHLOROthiazide (Hyzaar) 50-12.5 MG tablet Indications: Benign hypertension (CMS/HCC) Take 1 tablet by mouth Daily 90 tablet 1 06/28/2024 10/18/2024 Discontinued (Dose adjustment) Iron Combinations (IRON COMPLEX PO) (19 sources) take 1 tablet by casie th three times weekly Iron Combinations (IRON COMPLEX PO) Take 1 tablet by mouth 3 (three) times a week Active take 1 tablet by casie th three times weekly Iron Combinations (IRON COMPLEX PO) Take 1 tablet by mouth 3 (three) times a week. Active levothyroxine sodium 0.05 mg oral tablet (4 sources) l-Thyroxine Start: 02-07-2025 End: 08-06-2025 take 0.5 tablet by mouth twice daily before mealtime levothyroxine (Synthroid, Levoxyl) 50 MCG tablet Indications: Central hypothyroidism Take 0.5 tablets (25 mcg) by mouth 2 (two) times a day before meals 90 tablet 1 02/07/2025 08/06/2025 Active liothyronine sodium 0.005 mg oral tablet (4 sources) l-Triiodothyronine Start: 02-07-2025 liothyronine (Cytomel) 5 MCG tablet Indications: Euthyroid sick syndrome Take 2 tablets in AM and 2 tablets in PM on an empty stomach. CRESCENCIO; Sigma or GreenCrushpath brands only 360 tablet 1 02/07/2025 Active melatonin 12 mg oral tablet (5 sources) End: 06-28-2024 take 1 tablet by mouth at bedtime Melatonin 12 MG tablet Take 12 mg by mouth at bedtime 06/28/2024 Discontinued (Therapy completed) 24 hr metoprolol succinate 50 mg extended release oral tablet (20 sources) beta-Adrenergic Deepa Start: 01-14-2024 End: 06-18-2025 take 1 tablet by mouth once daily metoprolol succinate XL (Toprol-XL) 50 MG 24 hr tablet Indications: Benign hypertension Take 1 tablet (50 mg) by mouth Daily 90 tablet 1 12/20/2024 06/18/2025 Active Multiple Vitamin (Multi-Vitamin) tablet (19 sources) take 1 tablet by mouth in [...] (Therapy completed) spironolactone 25 mg oral tablet (20 sources) Aldosterone Antagonist Start: 12-20-2024 spironolactone (Aldactone) 25 MG tablet Indications: Venous insufficiency Take 2 tablets in AM and 1 tablet inPM 270 tablet 1 12/20/2024 Active Start: 11-22-2024 End: 02-20-2025 take 1 tablet by mouth in the morning spironolactone (Aldactone) 25 MG tablet Indications: Venous insufficiency Take 1 tablet (25 mg) by mouth in the morning and 1 tablet (25 mg) before bedtime. 180 tablet 1 12/20/2024 12/20/2024 Discontinued (Entered in error) Start: 08-17-2024 End: 11-15-2024 take 1 tablet [...] mg) before bedtime. 60 tablet 01/28/2024 Active traZODone hydrochloride 50 mg oral tablet (20 sources) Serotonin Reuptake Inhibitor Start: 01-26-2024 End: 07-11-2025 take 1.5 tablets by mouth at bedtime traZODone (Desyrel) 50 MG tablet Indications: Insomnia Take 1.5 tablets (75 mg) by mouth at bedtime 135 tablet 1 01/12/2025 07/11/2025 Active zaleplon 10 mg oral capsule (20 sources) gamma-Aminobutyr ic Acid A Receptor Agonist Start: 02-14-2025 zaleplon (Sonata) 10 MG capsule Indications: Sleep disorder due to a general medical condition, mixed type Take 1 capsule at bedtime for sleep 90 capsule 1 02/14/2025 Active Start: 01-26-2024 End: 06-28-2024 zaleplon (Sonata) 10 MG caps ule Indications: Sleep disorder due to a general medical condition, mixed type Take 1 capsule at bedtime for sleep 90 capsule 1 06/28/2024 Active Completed/Discontinued Medications Medication Drug Class(es) Dates Sig (Normalized) Sig (Original) thyroid (residential) 60 mg oral tablet (19 sources) Start: 01-12-2025 End: 02-07-2025 thyroid ([employer] Thyroid) 60 MG tablet Indications: Central hypothyroidism , ESS (euthyroid sick syndrome) 1 in the am and 1/2 in the PM. 135 tablet 01/12/2025 02/07/2025 Discontinued (Dose adjustment) Start: 10-13-2023 End: 10-09-2024 thyroid ([employer] Thyroid) 60 MG t ablet Indications: Central hypothyroidism (CMS/HCC) , ESS (euthyroid sick syndrome) 1 in the am and 1/2 in the PM. 10/04/2024 Active Problems Active Problems Problem Classification Problem Date Documented Date Episodic/Chronic Cataract (1 source) Bilateral cortical age-related cataract eyes; Translations: [Cortical age-related cataract, bilateral] 07-19-2024 Chronic Chronic kidney disease (20 sources) Chronic kidney disease stage 2; Translations: [Chronic kidney disease, stage 2 (mild)] Onset: 01-28-2023 01-28-2023 Chronic Essential hypertension (20 sources) Benign hypertension; Translations: [Essential (primary) hypertension] Onset: 01-28-2023 01-28-2023 Chronic Hypertension with complications and secondary hypertension (20 sources) Hypertensive urgency; Translations: [Hypertensive renal disease] Onset: 01-01-2022 04-16-2023 Chronic Malaise and fatigue (20 sources) Fatigue; Translations: [Chronic fatigue, unspecified] Onset: 01-28-2023 01-28-2023 Chronic Menopausal disorders (19 sources) Disorder associated with menstruation AND/OR menopause; Translations: [Menopausal and female climacteric states] Onset: 01-28-2023 01-28-2023 Chronic Nonmalignant breast conditions (20 sources) Cyst of right breast; Translations: [Solitary cyst of right breast] Onset: 08-26-2024 09-08-2024 Episodic Nutritional deficiencies (19 sources) Vitamin D deficiency; Translations: [Vitamin D deficiency, unspecified] Onset: 01-28-2023 01-28-2023 Chronic Other acquired deformities (19 sources) Scoliosis of lumbar spine; Translations: [Other forms of scoliosis, lumbar region] Onset: 01-28-2023 01-28-2023 Chronic Other and unspecified benign neoplasm (1 source) Nevus of choroid of right eye; Translations: [Benign neoplasm of right choroid] 07-19-2024 Episodic Other nervous system disorders (19 sources) Chronic pain syndrome; Translations: [Chronic pain [...] Chronic Other nutritional; endocrine; and metabolic disorders (20 sources) Obesity caused by energy imbalance; Translations: [Morbid (severe) obesity due to excess calories] Onset: 09-17-2018 04-16-2023 Chronic Other nutritional; endocrine; and metabolic disorders (20 sources) Body mass index 40+ - severely obese; Translations: [Morbid (severe) obesity due to excess calories] Onset: 01-28-2023 Resolved: 03-30-2024 03-30-2024 Chronic Other screening for suspected conditions (not mental disorders or infectious disease) (16 sources) Mammography abnormal; Translations: [Other abnormal and inconclusive findings on diagnostic imaging of breast] Onset: 09-08-2024 09-08-2024 Episodic Residual codes; unclassified (4 sources) Obstructive sleep apnea (adult) (pediatric); Translations: [OBSTRUCTIVE SLEEP APNEA] Onset: 09-16-2022 Chronic Residual codes; unclassified (19 sources) Obstructive sleep apnea syndrome; Translations: [Obstructive sleep apnea (adult) (pediatric)] Onset: 01-28-2023 02-03-2023 Chronic Residual codes; unclassified (20 sources) Organic sleep disorder; Translations: [Other sleep disorders] Onset: 02-03-2023 02-03-2023 Chronic Residual codes; unclassified (20 sources) Idiopathic sleep related non-obstructive alveolar hypoventilation; Translations: [Idiopathic sleep related nonobstructive alveolar hypoventilation] Onset: 03-14-2022 04-16-2023 Chronic Residual codes; unclassified (2 sources) Active advance directive (copy within chart) ; Translations: [Other specified health status] 10-13-2024 Episodic Residual codes; unclassified (2 sources) High risk of heart disease; Translations: [Other specified personal risk factors, not elsewhere classified] 10-18-2024 Episodic Retinal detachments; defects; vascular occlusion; and retinopathy (1 source) Nonexudative age-related macular degeneration; Translations: [Nonexudative age-related macular degeneration, bilateral, early dry stage] 07-19-2024 Chronic Screening and history of mental health and substance abuse codes (2 sources) Patient encounter status; Translations: [Encounter for screening examination for other mental health and behavioral disorders] 10-13-2024 Episodic Spondylosis; intervertebral disc disorders; other back problems (20 sources) Lumbar spondylosis; Translations: [Spondylosis without myelopathy or radiculopathy, lumbar region] Onset: 07-18-2021 01-28-2023 Chronic Thyroid disorders (20 sources) Nontoxic multinodular goiter; Translations: [Autoimmune thyroiditis] Onset: 04-23-2022 Resolved: 10-18-2024 Chronic Unclassified (1 source) CONTACT W/AND (SUSP) EXPOS COVID-19; Translations: [CONTACT W/AND (SUSP) EXPOS COVID-19] Onset: 01-23-2022 Unclassified (19 sources) Patient on antidepressant monitoring plan Onset: 01-26-2024 01-26-2024 Past or Other Problems Problem Classification Problem Date Documented Date Episodic/Chronic Adjustment disorders (19 sources) Adjustment disorder; Translations: [Adjustment disorder, unspecified] Onset: 11-23-2019 Resolved: 09-15-2023 09-15-2023 Chronic Coma; stupor; and brain damage (19 sources) Daytime somnolence; Translations: [Somnolence] Onset: 01-28-2023 Resolved: 08-04-2023 08-04-2023 Episodic Diabetes mellitus without complication (20 sources) Impaired glucose tolerance; Translations: [Impaired glucose tolerance (oral)] Onset: 09-22-2017 04-16-2023 Episodic Mood disorders (19 sources) Mood disorders Onset: 09-15-2023 09-15-2023 Nonspecific chest pain (4 sources) Chest pain, unspecified; Translations: [CHEST PAIN UNSPECIFIED] Onset: 01-15-2022 Episodic Nutritional deficiencies (19 sources) Iron deficiency; Translations: [Iron deficiency] Onset: 01-28-2023 01-28-2023 Episodic Other acquired deformities (19 sources) Acquired spondylolisthesis; Translations: [Spondylolisthesis, lumbosacral region] Onset: 01-28-2023 01-28-2023 Episodic Other aftercare (20 sources) Drug therapy finding; Translations: [Other senior care (current) drug therapy] Onset: 04-16-2023 04-16-2023 Episodic Other diseases of veins and lymphatics (20 sources) Vascular insufficiency; Translations: [Venous insufficiency (chronic) (peripheral)] Onset: 09-15-2023 09-15-2023 Episodic Other diseases of veins and lymphatics (19 sources) Disorder of vein of lower extremity; Translations: [Venous insufficiency (chronic) (peripheral)] Onset: 09-15-2023 09-15-2023 Episodic Other lower respiratory disease (20 sources) Paralysis of diaphragm ; Translations: [Disorders of diaphragm] Onset: 01-28-2023 01-28-2023 Episodic Other lower respiratory disease (19 sources) Restrictive lung disease; Translations: [Other disorders of lung] Onset: 01-28-2023 01-28-2023 Episodic Other nervous system disorders (19 sources) Abnormal gait; Translations: [Unspecified abnormalities of gait and mobility] Onset: 01-28-2023 Resolved: 09-15-2023 09-15-2023 Episodic Residual codes; unclassified (19 sources) Dependence on other enabling machines and devices; Translations: [Dependence on other enabling machines] Onset: 01-28-2023 Resolved: 09-15-2023 09-15-2023 Chronic Residual codes; unclassified (19 sources) Acquired absence of cervix and uterus; Translations: [Acquired absence of both cervix and uterus] Onset: 01-28-2023 01-28-2023 Episodic Residual codes; unclassified (19 sources) Menopause present; Translations: [Asymptomatic menopausal state] Onset: 06-18-2021 04-16-2023 Episodic Spondylosis; intervertebral disc disorders; other back problems (20 sources) Chronic low back pain; Translations: [Chronic midline low back pain without sciatica] Onset: 07-28-2021 Resolved: 09-15-2023 01-28-2023 Episodic Thyroid disorders (20 sources) Sick-euthyroid syndrome; Translations: [Sick-euthyroid syndrome] Onset: 04-26-2022 01-28-2023 Episodic Results Test Name Value Interpretation Reference Range Facility Mammography reportOrdered By : Karlie Hollingsworth on 03-23-2025 Diagnostic imaging study [facility] [address] [place] [address] Mammography Report Signed Patient: Antoinette Lee MR# : [id number] : 1955 Acct:[id number] Age/Sex: 69 / F Adm Date: 5 Loc: [place] Room: Type: [facility] Attending Dr: Indra Bauer DO Ordering Provider: Indra Bauer DO Date of Service: 03/23/25 Procedure(s): MM diagnostic mammo RT w/CAD; US breast RT limited Accession Number(s): ([id number]) MM/MM diagnostic mammo RT w/CAD: 6mos. followup ([id number]) US/US breast RT limited: 6mos. follow up Copies to: MD Indra Telles, DO~ DIAGNOSTIC RIGHT BREAST MAMMOGRAM - FULL FIELD DIGITAL WITH TOMOSYNTHESIS CLINICAL DATA: Follow-up cyst in right breast Tomosynthesis mediolateral, Craniocaudal and mediolateral oblique views of the right breast were obtained using low-dose digital technique. Comparison is madeto prior studies from 03/23/2025 and 08/05/2024. This examination was reviewed with the aid of CAD. Benign-appearing calcifications are present. There are focal asymmetries in the right breast similar to the prior exam. The cyst in question along the medial aspect of the right breast has decreased in size on mammogram. Benign-appearing lymph nodes are noted along the chest wall. There are no dominant masses, typically malignant calcifications or architectural distortion. There has been no significant interval change. Limited right breast ultrasound: There is a mildly complex cyst internal debris at the 4:00 position 2 cm from nipple. This is smaller when compared prior exam measuring 5 x 3 x 6 mm in greatest dimension. MM/MM diagnostic mammo RT w/CAD IMPRESSION: There is a mildly complex cyst internal debris at the 4:00 position 2 cm from nipple. This is smaller when compared prior exam measuring 5 x 3 x 6 mm in greatest dimension. Follow up right breast ultrasound time of the patient's bilateral screening mammography in July 2025 is recommended. RESULT CODE: 3 Probably Benign Finding Short Term Follow-Up DENSITY CODE: 2 (approximately 25-50% glandular) There are scattered areas of fibroglandular density. FOLLOW UP: 6M The false-negative rate of mammography is approximately 10-percent. Management of a palpable abnormality must be based on clinical grounds. Impression dictated by: Karlie Hollingsworth M.D. 03/23/2025 9:56 AM Dictation Location: [facility]01 Dictated By: Karlie Hollingsworth II, MD 03/23/25 [id number] Signed By: 03/23/25 [id number] [facility] Work Phone: US breast RT limitedon 03-23 US breast RT limited [facility] [address] [place] [address] Mammography Report Signed Patient: Antoinette Lee MR#: [id number] : 1955 Acct:[id number] Age/Sex: 69 / F Adm Date: 03/23/25 Loc: [place] Room: Type: [facility] Attending Dr: Indra Bauer DO Ordering Provider: Indra Bauer DO Date of Service: 03/23/25 Procedure(s): MM diagnostic mammo RT w/CAD; US breast RT limited Accession Number(s): ([id number]) MM/MM diagnostic mammo RT w/CAD: 6mos. follow up ([id number]) US/US breast RT limited: 6mos. follow up Copies to: MD Indra Telles DO DIAGNOSTIC RIGHT BREAST MAMMOGRAM - FULL FIELD DIGITAL WITH TOMOSYNTHESIS CLINICAL DATA: Follow-up cyst in right breast Tomosynthesis mediolateral, Craniocaudal and mediolateral oblique views of the right breast were obtained using low-dose digital technique. Comparison is made to prior studies from 03/23/2025 and 08/05/2024. This examination was reviewed with the aid of CAD. Benign-appearing calcifications are present. There are focal asymmetries in the right breast similar to the prior exam. The cyst in question along the medial aspect of the right breast has decreased in size on mammogram. Benign-appearing lymph nodes are noted along the chest wall. There are no dominant masses, typically malignant calcifications or architectural distortion. There has been no significant interval change. Limited right breast ultrasound: There is a mildly complex cyst internal debris at the 4:00 position 2 cm from nipple. This is smaller when compared prior exam measuring 5 x 3 x 6 mm in greatest dimension. MM/MM diagnostic mammo RT w/CAD IMPRESSION: There is a mildly complex cyst internal debris at the 4:00 position 2 cm from nipple. This is smaller when compared prior exam measuring 5 x 3 x 6 mm in greatest dimension. Follow up right breast ultrasound time of the patient's bilateral screening mammography in July 2025 is recommended. RESULT CODE: 3 Probably Benign Finding Short Term Follow-Up DENSITY CODE: 2 (approximately 25-50% glandular) There are scattered areas of fibroglandular density. FOLLOW UP: 6M The false-negative rate of mammography is approximately 10-percent. Management of a palpable abnormality must be based on clinical grounds. Impression dictated by: Karlie Hollingsworth M.D. 03/23/2025 9:56 AM Dictation Location: [facility] Dictated By: Karlie Hollingsworth II, MD 03/23/25929 Signed By: 03/23/2556 Normal [facility] ELECTROLYTE PANELon 01-25-20 25 Chloride [Moles/Vol] 102 mmol/L Normal 98-110 [facility] Comment on above: Performed By: #### 3 [id number], 899, 93488, 859, 866 #### [facility] [address], [address] [place], [place] [id number] [employer]: Meet Loredo MD #### [id number] #### [facility]/[address] [place], [place] [employer]: David Baldwin M.D.,PhD CO2 [Moles/Vol] 30 mmol/L Normal 20-32 [facility] Comment on above: Performed By: #### 3 4429, 899, 11042, 859, 866 #### [facility] [address] [employer]: Meet Loredo MD #### [id number] #### [facility]/[address] [place], [place] [employer]: David Baldwin M.D.,PhD Potassium [Moles/Vol] 4.7 mmol/L Normal 3.5-5.3 [facility] Comment on above: Performed By: #### 3 4429, 899, 16073, 859, 866 #### [facility] [address], [address] [place] [address] [employer]: Meet Loredo MD #### [id number] #### [facility] [place], [place] [employer]: David Baldwin M.D.,PhD Sodium [Moles/Vol] 138 mmol/L Normal 135-146 [facility] Comment on above: Performed By: #### 3 4429, 899, 90383, 859, 866 #### [facility] [address], [address] [place] [address] [employer]: Meet Loredo MD #### [id number] #### [facility] [place], [place] [employer]: David Baldwin M.D.,PhD T3 REVERSE, LC/MS/MSon 01-24 T3 REVERSE, LC/MS/MS 23 ng/dL Normal 8-25 [facility] Comment on above: Result Comment: This test was developed and its analytical performance characteristics have been determined by [employer] [place], [place]. It has not been cleared or approved by the U.S. Food and Drug Administration. This assay has been validated pursuant to the CLIA regulations and is used for clinical purposes. Performed By: #### 3 4429, 899, 09649, 859, 866 #### [facility] [address], [address] [place] [address] [employer]: Meet Loredo MD #### [id number] #### [facility] [place], [place] [employer]: David Baldwin M.D.,PhD T3, FREEon 01-24-2025 Free T3 [Mass/Vol] 3.2 pg/mL Normal 2.3-4.2 [facility] Comment on above: Performed By: #### 3 4429, 866, 859 #### [facility] [address], [address] [place] [address] [employer]: Meet Loredo MD #### [id number] #### [facility]/[place] [id number] [facility] [place] [employer]: David Baldwin M.D.,PhD T3, TOTALon 01-24-2025 T3, TOTAL 138 ng/dL Normal 76-181 [facility] Comment on above: Performed By: #### 3 4429, 899, 94047, 859, 866 #### [facility] of [facility] [address] , [address] [place] [address] [employer]: Meet Loredo MD #### [id number] #### [facility]/[place] [id number] [facility] [address] [place] [employer]: David Baldwin M.D.,PhD T4, FREE 01-24-2025 Free T4 [Mass/Vol] 1.2 ng/dL Normal 0.8-1.8 [facility] Comment on above: Performed By: #### 3 4429, 899, 56356, 859, 866 #### [facility] of [address], [address] [place] [address] [employer]: Meet Loredo MD #### [id number] #### [facility]/[place] [id number] [facility] [address] [place] [employer]: David Baldwin M.D.,PhD TSHon 01-24-2025 TSH Qn 1.80 m[IU]/L Normal 0.40-4.50 [facility] Comment on above: Performed By: #### 3 4429, 899, 25773, 859, 866 #### [facility] of [address], [address] [place] [address] [employer]: Meet Loredo MD #### [id number] #### [facility]/[place] [id number] [facility] [address] [place] [employer]: David Baldwin M.D.,PhD ALBUMIN, RANDOM URINE W/ALFRED Tirado 12-16-2024 ALBUMIN, URINE 6.1 mg/dL Normal See Note: [facility] Comment on above: Order Comment: SPLIT 12/15/2024 FROM [id number] Result Comment: Meenu juarez Range: Reference Range Not established Performed By: #### 6 517 #### [facility] of [address], [address] [place] [address] [employer]: Meet Loredo MD ALBUMIN/CREATININE RATIO, RANDOM URINE 41 mg/g creat High <30 [facility] Comment on above: Order Comment: SPLIT 12/15/2024 FROM [id number] Result Comment: The ADA defines abnormalities in albumin excretion as follows: Albuminuria Category Result (mg/g creatinine) Normal to Mildly increased <30 Moderately increased 30-299 Severely increased > OR = 300 The ADA recommends that at least two of three specimens collected within a 3-6 month period be abnormal before considering a patient to be within a diagnostic category. Performed By: #### 6 517 #### [facility] of [address], [address] [place] [address] [employer]: Meet Loredo MD Creatinine (U) [Mass/Vol] 148 mg/dL Normal 20-275 [facility] Comment on above: Order Comment: SPLIT 12/15/2024 FROM [id number] Performed By: #### 6 517 #### [facility] [address], [address] [place] [address] [employer]: Meet Loredo MD [facility] METABOLIC P[facility] 12-16-2024 Albumin [Mass/Vol] 3.8 g/dL Normal 3.6-5.1 [facility] Comment on above: Performed By: #### 3 4405, 866, 859 #### [facility] of [address], [address] [place] [address] [employer]: Meet Loredo MD #### [id number] #### [facility] [address] [facility] [place] [address] [employer]: David Baldwin M.D.,PhD Albumin/Globulin [Mass ratio] 1.3 {ratio} Normal 1.0-2.5 [facility] Comment on above: Performed By: #### 3 4429, 866, 859 #### [facility] of [place] [address] [employer]: Meet Loredo MD #### [id number] #### [facility]/[place] [id number] [facility] [place], [place] [employer]: David Baldwin M.D.,PhD ALP [Catalytic activity/Vol] 63 U/L Normal 37-153 [facility] Comment on above: Performed By: #### 3 4429, 866, 859 #### [facility] of [address] [employer]: Meet Loredo MD #### [id number] #### [facility] [place] [employer]: David Baldwin M.D.,PhD ALT [Catalytic activity/Vol] 11 U/L Normal 6-29 [facility] Comment on above: Performed By: #### 3 4429, 866, 859 #### [facility] of [place] [address] [employer]: Meet Loredo MD #### [id number] #### [facility]/[address] [place] [employer]: David Baldwin M.D.,PhD AST [Catalytic activity/Vol] 15 U/L Normal 10-35 [facility] Comment on above: Performed By: #### 3 4429, 866, 859 #### [facility] of [place] [id number] [employer]: Meet Loredo MD #### [id number] #### [facility] [address] [place] [employer]: David Baldwin M.D.,PhD Bilirubin [Mass/Vol] 0.5 mg/dL Normal 0.2-1.2 [facility] Comment on above: Performed By: #### 3 4429, 866, 859 #### [facility] of [address], [address] [place] [address] [employer]: Meet Loredo MD #### [id number] #### [facility]/[place] [id number] [facility] [place] [employer]: David Baldwin M.D.,PhD Calcium [Mass/Vol] 10.0 mg/dL Normal 8.6-10.4 [facility] Comment on above: Performed By: #### 3 4429, 866, 859 #### [facility] of [place] [address] [employer]: Meet Loredo MD #### [id number] #### [facility]/[address] [place], [place] [employer]: David Baldwin M.D.,PhD Chloride [Moles/Vol] 106 mmol/L Normal 98-110 [facility] Comment on above: Performed By: #### 3 4429, 866, 859 #### [facility] of [place] [address] [employer]: Meet Loredo MD #### [id number] #### [facility]/[address] [place], [place] [employer]: David Baldwin M.D.,PhD CO2 [Moles/Vol] 26 mmol/L Normal 20-32 [facility] Comment on above: Performed By: #### 3 4429, 866, 859 #### [facility] of [place] [address] [employer]: Meet Loredo MD #### [id number] #### [facility]/[place] [id number] [facility] [place] [employer]: David Baldwin M.D.,PhD Creatinine [Mass/Vol] 1.08 mg/dL High 0.50-1.05 [facility] Comment on above: Performed By: #### 3 4429, 866, 859 #### [facility] of [place] [id number] [employer]: Meet Loredo MD #### [id number] #### [facility] [address] [place] [employer]: David Baldwin M.D.,PhD GFR/1.73 sq M.predicted among non-blacks MDRD (S/P/Bld) [Vol rate/Area] 56 mL/min/{1.73_m2} Low > OR = 60 [facility] Comment on above: Performed By: #### 3 4429, 866, 859 #### [facility] [place] [id number] [employer]: Meet Loredo MD #### [id number] #### [facility] [place] [employer]: David Baldwin M.D.,PhD Globulin (S) [Mass/Vol] 2.9 g/dL Normal 1.9-3.7 [facility] Comment on above: Performed By: #### 3 4429, 866, 859 #### [facility] [place] [id number] [employer]: Meet Loredo MD #### [id number] #### [facility] [place] [employer]: David Baldwin M.D.,PhD Glucose [Mass/Vol] 104 mg/dL High 65-99 [facility] Comment on above: Result Comment: Fasting reference interval For someone without known diabetes, a glucose value between 100 and 125 mg/dL is consistent with prediabetes and should be confirmed with a follow-up test. Performed By: #### 3 4429, 866, 859 #### [facility] [address] [employer]: Meet Loredo MD #### [id number] #### [facility]/[place] [id number] [facility] [place] [employer]: David Baldwin M.D.,PhD Potassium [Moles/Vol] 4.9 mmol/L Normal 3.5-5.3 [facility] Comment on above: Performed By: #### 3 4429, 866, 859 #### [facility] [address] [employer]: Meet Loredo MD #### [id number] #### [facility]/[place] [id number] [facility] [place] [employer]: David Baldwin M.D.,PhD Protein [Mass/Vol] 6.7 g/dL Normal 6.1-8.1 [facility] Comment on above: Performed By: #### 3 4429, 866, 859 #### [facility] [address] [employer]: Meet Loredo MD #### [id number] #### [facility]/[place] [id number] [facility] [place] [employer]: David Baldwin M.D.,PhD Sodium [Moles/Vol] 140 mmol/L Normal 135-146 [facility] Comment on above: Performed By: #### 3 4429, 866, 859 #### [facility] [place] [id number] [employer]: Meet Loredo MD #### [id number] #### [facility]/[place] [id number] [facility] [address] [place] [employer]: David Baldwin M.D.,PhD Urea nitrogen [Mass/Vol] 30 mg/dL High 02-11 [facility] Comment on above: Performed By: #### 3 4429, 866, 859 #### [facility] [address], [address] [place], [place] [address] [employer]: Meet Loredo MD #### [id number] #### [facility]/[address] [place] [employer]: David Baldwin M.D.,PhD Urea nitrogen/Creatinine [Mass ratio] 28 mg/mg High 01-09 [facility] Comment on above: Performed By: #### 3 4429, 866, 859 #### [facility] [address], [address] [place], [place] [address] [employer]: Meet Loredo MD #### [id number] #### [facility] [address] [place] [address] [place], [place] [employer]: David Baldwin M.D.,PhD HEMOGLOBIN A1con 12-16-2024 HbA1c (Bld) [Mass fraction] 6.0 % High <5.7 [facility] Comment on above: Result Comment: For someone without known diabetes, a hemoglobin A1c value between 5.7% and 6.4% is consistent with prediabetes and should be confirmed with a follow-up test. For someone with known diabetes, a value <7% indicates that their diabetes is well controlled. A1c targets should be individualized based on duration of diabetes, age, comorbid conditions, and other considerations. This assay result is consistent with an increased risk of diabetes. Currently, no consensus exists regarding use of hemoglobin A1c for diagnosis of diabetes for children. Performed By: #### 3 4445, 866, 859 #### [facility] [address], [address] [place], [place] [address] [employer]: Meet Loredo MD #### [id number] #### [facility]/[address] [place] [employer]: David Baldwin M.D.,PhD LIPID PANEL, [facility] Cholesterol [Mass/Vol] 181 mg/dL Normal <200 [facility] Comment on above: Order Comment: FASTI NG:NO FASTING: NO Performed By: #### 3 4429, 866, 859 #### [facility] [address], [address] [place] [address] [employer]: Meet Loredo MD #### [id number] #### [facility]/[place] [id number] [facility] [place] [employer]: David Baldwin M.D.,PhD Cholesterol in HDL [Mass/Vol] 51 mg/dL Normal > OR = 50 [facility] Comment on above: Order Comment: FASTI NG:NO FASTING: NO Performed By: #### 3 4429, 866, 859 #### [facility] [address], [address] [place] [address] [employer]: Meet Loredo MD #### [id number] #### [facility]/[address] [place], [place] [employer]: David Baldwin M.D.,PhD Cholesterol in LDL [Mass/Vol] 111 mg/dL High [facility] Comment on above: Order Comment: FASTI NG:NO FASTING: NO Result Comment: Refe rence range: <100 Desirable range <100 mg/dL for primary prevention; <70 mg/dL for patients with CHD or diabetic patients with > or = 2 CHD risk factors. LDL-C is now calculated using the Prakash calculation, which is a validated novel method providing better accuracy than the Friedewald equation in the estimation of LDL-C. Jemal VALDES et al. GILDA. 2013;310(19): 5576-3855 (http://education.Melodeo.Ranku/faq/HMY454) Performed By: #### 3 4429, 866, 859 #### [facility] [address], [address] [place], [place] [address] [employer]: Meet Loredo MD #### [id number] #### [facility] [place], [place] [employer]: David Baldwin M.D.,PhD Cholesterol.total/C holesterol in HDL [Mass ratio] 3.5 {ratio} Normal <5.0 [facility] Comment on above: Order Comment: FASTI NG:NO FASTING: NO Performed By: #### 3 4429, 866, 859 #### [facility] [address], [address] [place], [place] [address] [employer]: Meet Loredo MD #### [id number] #### [facility] [place], [place] [employer]: David Baldwin M.D.,PhD NON HDL CHOLESTEROL 130 mg/dL (calc) High <130 [facility] Comment on above: Order Comment: FASTI NG:NO FASTING: NO Result Comment: For patients with diabetes plus 1 major ASCVD risk factor, treating to a non-HDL-C goal of <100 mg/dL (LDL-C of <70 mg/dL) is considered a therapeutic option. Performed By: #### 3 4429, 866, 859 #### [facility] [address], [address] [place], [place] [id number] [employer]: Meet Loredo MD #### [id number] #### [facility] [place] [employer]: David Baldwin M.D.,PhD Triglyceride [Mass/Vol] 91 mg/dL Normal <150 [facility] Comment on above: Order Comment: FASTI NG:NO FASTING: NO Performed By: #### 3 4429, 866, 859 #### [facility] [address], [address] [place], [place] [id number] [employer]: Meet Loredo MD #### [id number] #### [facility]/[place] [id number] [facility] [place] [employer]: David Baldwin M.D.,PhD T3 REVERSE, LC/MS/MSon 09-21 T3 REVERSE, LC/MS/MS 26 ng/dL High 8-25 [facility] Comment on above: Order Comment: FASTI NG:NO FASTING: NO Result Comment: This test was developed and its analytical performance characteristics have been determined by [facility] [place], [place]. It has not been cleared or approved by the U.S. Food and Drug Administration. This assay has been validated pursuant to the CLIA regulations and is used for clinical purposes. Performed By: #### 3 4429, 866, 859 #### [facility] [address], [address] [place] [address] [employer]: Meet Loredo MD #### [id number] #### [facility] [place] [employer]: David Baldwin M.D.,PhD T3, FREEon 09-21-2024 Free T3 [Mass/Vol] 4.0 pg/mL Normal 2.3-4.2 [facility] Comment on above: Performed By: #### 3 4429, 866, 859 #### [facility] [address], [address] [place] [address] [employer]: Meet Loredo MD #### [id number] #### [facility] [address] [facility] [place], [place] [employer]: David Baldwin M.D.,PhD T3, TOTALon 09-21-2024 T3, TOTAL 179 ng/dL Normal 76-181 [facility] Comment on above: Performed By: #### 3 4429, 866, 859 #### [facility] [address], [address] [place] [address] [employer]: Meet Loredo MD #### [id number] #### [facility] [address] [facility] [address] [place], [place] [employer]: David Baldwin M.D.,PhD T4, FREEon 09-21-2024 Free T4 [Mass/Vol] 1.2 ng/dL Normal 0.8-1.8 [facility] Comment on above: Performed By: #### 3 4429, 866, 859 #### [facility] [address], [address] [place] [address] [employer]: Meet Loredo MD #### [id number] #### [facility] [address] [facility] [address] [place], [place] [employer]: David Baldwin M.D.,PhD BI MAMMOGRAM DIAGNOSTIC AMBER SYNTHESIS RIGHTon 08-05-2024 [...] IS VERY IMPORTANT TO YOUR HEALTH. THE [employer] GUIDELINES RECOMMEND THAT WOMEN 40 [...] VERY IMPORTANT TO YOUR HEALTH. THE CURRENT [place] [employer] GUIDELINES RECOMMENDS ANNUAL MAMMOGRAPHY BEGINNING AT AGE 40 THIS FACILITY USES A REMINDER SYSTEM TO ENSURE ALL PATIENTS RECEIVE REMINDER NOTIFICATIONS AT THE APPROPRIATE TIME BASED ON THE RECOMMENDATIONS OF THIS EXAM. Board Certified Radiologist. Accredited by the ACR and FDA. Report reported and signed by Iban Neri on 07/31/2022 1132 Normal [facility] REVERSE T3on 04-27-2022 Reverse T3, Serum 25.3 ng/dL Critically high 9.2-24.1 [facility] Comment on above: Result Comment: This test was developed and its performance characteristics determined by [facility]. It has not been cleared or approved by the Food and Drug Administration. Performed By: #### R EVRT3 #### [facility] [address] [place] [address] Dr. Henry Jones T3, TOTAL (TRIIODOTHYRONINE) on 04-24-2022 T3, TOTAL 225 ng/dL Critically high 71-180 [facility] Comment on above: Performed By: #### T 3TOTAL #### [facility] [address] [place] [address] Dr. Henry Jones FREE T3on 04-23-2022 FREE T3 3.43 pg/mlL Normal 2.18-3.98 [facility] Comment on above: Performed By: #### T SH, FT3 #### [facility] [address] [place] [address] Dr. Henry Jones TSHon 04-23-2022 TSH 0.211 uIU/mL Critically low 0.358-3.740 [facility] Comment on above: Performed By: #### T SH, FT3 #### [facility] [address] [place] [address] Dr. Henry Jones CARDIAC KARLIE 3-6on 2 CK [Catalytic activity/Vol] 30 U/L Normal 26-192 [facility] Comment on above: Performed By: #### T 3TOTAL #### [facility] [address] [place] [address] Dr. Henry Jones CK.MB [Mass/Vol] 1.40 ng/mL Normal <=3.60 [facility] Comment on above: Performed By: #### T 3TOTAL #### [facility] [address] [place] [address] Dr. Henry Jones HSTROP 9.4 pg/mL Normal 4.0-51.3 [facility] Comment on above: Result Comment: CUT- OFF POINTS HAVE BEEN ESTABLISHED BASED ON THE FOURTH UNIVERSAL DEFINITIONS OF MYOCARDIAL INFARCTION. THE UPPER REFERENCE LIMIT (URL) OF TROPONIN, DEFINED THE 99TH PERCENTILE OF cTnI DISTRIBUTION IN A REFERENCE POPULATION, HAS BEEN CONFIRMED THE DECISION THRESHOLD FOR DC DIAGNOSIS. Performed By: #### T 3TOTAL #### [facility] [address] [place], [place] [address] Dr. Henry Jones CK [Catalytic activity/Vol] 44 U/L Normal 26-192 [facility] Comment on above: Performed By: #### C MREP #### [facility] [address] [place], [place] [address] Dr. Henry Jones CK.MB [Mass/Vol] 1.14 ng/mL Normal <=3.[address] [facility] Comment on above: Performed By: #### C MREP #### [facility] [address] [place] [address] [address] Henry Jones HSTROP 11.3 pg/mL Normal 4.0-51.3 [facility] Comment on above: Result Comment: CUT- OFF POINTS HAVE BEEN ESTABLISHED BASED ON THE FOURTH UNIVERSAL DEFINITIONS OF MYOCARDIAL INFARCTION. THE UPPER REFERENCE LIMIT (URL) OF TROPONIN, DEFINED THE 99TH PERCENTILE OF cTnI DISTRIBUTION IN A REFERENCE POPULATION, HAS BEEN CONFIRMED THE DECISION THRESHOLD FOR DC DIAGNOSIS. Performed By: #### C MREP #### [facility] [address] [place] [address] [address] Henry Jones CARDIAC KARLIE ADMITon 022 CK [Catalytic activity/Vol] 42 U/L Normal 26-192 [facility] Comment on above: Performed By: #### T 3TOTAL #### [facility] [address] [place] [address] [address] Henry Jones CK.MB [Mass/Vol] 1.76 ng/mL Normal <=3.[address] [facility] Comment on above: Performed By: #### T 3TOTAL #### [facility] [address] [place] [address] [address] Henry Jones HSTROP 11.1 pg/mL Normal 4.0-51.3 [facility] Comment on above: Result Comment: CUT- OFF POINTS HAVE BEEN ESTABLISHED BASED ON THE FOURTH UNIVERSAL DEFINITIONS OF MYOCARDIAL INFARCTION. THE UPPER REFERENCE LIMIT (URL) OF TROPONIN, DEFINED THE 99TH PERCENTILE OF cTnI DISTRIBUTION IN A REFERENCE POPULATION, HAS BEEN CONFIRMED THE DECISION THRESHOLD FOR DC DIAGNOSIS. Performed By: #### T 3TOTAL #### [facility] [address] [place] [address] Dr. Henry Jones MERCED 40 ng/mL Normal 9-82 [facility] Comment on above: Performed By: #### T 3TOTAL #### [facility] [address] [place] [address] Dr. Henry Jones CBC AUTO DIFFon 01-15-2022 BASO # 0.0 103/ul Normal 0.0-0.1 [facility] Comment on above: Performed By: #### C BC #### [facility] [address] [place] [address] Dr. Henry Jones Basophils/100 WBC (Bld) 0.3 % Normal 0.2-2.0 [facility] Comment on above: Performed By: #### C BC #### [facility] [address] [place] [address] Dr. Henry Jones EO # 0.1 103/ul Normal 0.0-0.7 [facility] Comment on above: Performed By: #### C BC #### [facility] [address] [place] [address] Dr. Henry Jones Eosinophils/100 WBC (Bld) 1.0 % Normal 0.9-7.0 [facility] Comment on above: Performed By: #### C BC #### [facility] [address] [place] [address] Dr. Henry Jones Erythrocyte distribution width (RBC) [Ratio] 13.7 % Normal 11.0-15.0 [facility] Comment on above: Performed By: #### C BC #### [facility] [address] [place] [address] Dr. Henry Jones Hematocrit (Bld) [Volume fraction] 37.8 % Normal 36.0-48.0 [facility] Comment on above: Performed By: #### C BC #### [facility] [address] [place] [address] Dr. Henry Jones Hemoglobin (Bld) [Mass/Vol] 12.0 g/dL Normal 12.0-16.0 [facility] Comment on above: Performed By: #### C BC #### [facility] [address] [place] [address] Dr. Henry Jones IG # 0.02 10e3/ul Normal 0.00-0.03 [facility] Comment on above: Performed By: #### C BC #### [facility] [address] [place] [address] Dr. Henry Jones IG % 0.2 % Normal 0.0-0.5 [facility] Comment on above: Performed By: #### C BC #### [facility] [address] [place] [address] Dr. Henry Jones LYMPH # 1.5 103/ul Normal 1.2-3.8 [facility] Comment on above: Performed By: #### C BC #### [facility] [address] [place] [address] Dr. Henry Jones Lymphocytes/100 WBC (Bld) 16.0 % Critically low 20.5-60.0 [facility] Comment on above: Performed By: #### C BC #### [facility] [address] [place] [address] Dr. Henry Jones MANUAL DIFF REQ NO Normal [facility] Comment on above: Performed By: #### C BC #### [facility] [address] [place] [address] Dr. Henry Jones MCH (RBC) [Entitic mass] 27.4 pg Normal 26.7-34.0 [facility] Comment on above: Performed By: #### C BC #### [facility] [address] [place] [address] Dr. Henry Jones MCHC (RBC) [Mass/Vol] 31.7 g/dL Normal 29.9-35.2 [facility] Comment on above: Performed By: #### C BC #### [facility] [address] [place] [address] Dr. Henry Jones MCV (RBC) [Entitic vol] 86.3 fL Normal 81.0-99.0 [facility] Comment on above: Performed By: #### C BC #### [facility] [address] [place] [address] Dr. Henry Jones MONO # 0.6 103/ul Normal 0.3-0.8 [facility] Comment on above: Performed By: #### C BC #### [facility] [address] [place] [address] Dr. Henry Jones Monocytes/100 WBC (Bld) 5.9 % Normal 1.7-12.0 [facility] Comment on above: Performed By: #### C BC #### [facility] [address] [place] [address] Dr. Henry Jones NEUT # 7.1 103/ul Critically high 1.4-6.5 [facility] Comment on above: Performed By: #### C BC #### [facility] [address] [place] [address] Dr. Henry Jones Neutrophils/100 WBC (Bld) 76.6 % Critically high 43.0-75.0 [facility] Comment on above: Performed By: #### C BC #### [facility] [address] [place] [address] Dr. Henry Jones Platelet mean volume (Bld) [Entitic vol] 9.7 fL Normal 9.5-13.5 [facility] Comment on above: Performed By: #### C BC #### [facility] [address] [place] [address] Dr. Henry Jones PLT 311 103/ul Normal 150-450 [facility] Comment on above: Performed By: #### C BC #### [facility] [address] [place] [address] Dr. Henry Jones RBC 4.38 106/ul Normal 4.20-5.40 [facility] Comment on above: Performed By: #### C BC #### [facility] [address] [place] [address] Dr. Henry Jones WBC 9.3 103/ul Normal 4.0-11.0 [facility] Comment on above: Performed By: #### C BC #### [facility] [address] [place] [address] Dr. Henry Jones BASO # 0.1 103/ul Normal 0.0-0.1 [facility] Comment on above: Performed By: #### C BC #### [facility] [address] [place] [address] Dr. Henry Jones Basophils/100 WBC (Bld) 0.4 % Normal 0.2-2.0 [facility] Comment on above: Performed By: #### C BC #### [facility] [address] [place] [address] Dr. Henry Jones EO # 0.1 103/ul Normal 0.0-0.7 [facility] Comment on above: Performed By: #### C BC #### [facility] [address] [place] [id number] Dr. Henry Jones Eosinophils/100 WBC (Bld) 0.9 % Normal 0.9-7.0 [facility] Comment on above: Performed By: #### C BC #### [facility] [address] [place] [address] Dr. Henry Jones Erythrocyte distribution width (RBC) [Ratio] 13.7 % Normal 11.0-15.0 [facility] Comment on above: Performed By: #### C BC #### [facility] [address] [place] [address] Dr. Henry Jones Hematocrit (Bld) [Volume fraction] 41.7 % Normal 36.0-48.0 [facility] Comment on above: Performed By: #### C BC #### [facility] [address] [place] [address] Dr. Henry Jones Hemoglobin (Bld) [Mass/Vol] 13.5 g/dL Normal 12.0-16.0 [facility] Comment on above: Performed By: #### C BC #### [facility] [address] [place] [address] Dr. Henry Jones IG # 0.06 10e3/ul Critically high 0.00-0.03 [facility] Comment on above: Performed By: #### C BC #### [facility] [address] [place] [address] Dr. Henry Jones IG % 0.5 % Normal 0.0-0.5 [facility] Comment on above: Performed By: #### C BC #### [facility] [address] [place] [address] Dr. Henry Jones LYMPH # 2.3 103/ul Normal 1.2-3.8 [facility] Comment on above: Performed By: #### C BC #### [facility] [address] [place] [address] Dr. Henry Jones Lymphocytes/100 WBC (Bld) 17.2 % Critically low 20.5-60.0 [facility] Comment on above: Performed By: #### C BC #### [facility] [address] [place] [address] Dr. Henry Jones MANUAL DIFF REQ NO Normal [facility] Comment on above: Performed By: #### C BC #### [facility] [address] [place] [address] Dr. Henry Jones MCH (RBC) [Entitic mass] 27.6 pg Normal 26.7-34.0 [facility] Comment on above: Performed By: #### C BC #### [facility] [address] [place] [address] Dr. Henry Jones MCHC (RBC) [Mass/Vol] 32.4 g/dL Normal 29.9-35.2 [facility] Comment on above: Performed By: #### C BC #### [facility] [address] [place] [address] Dr. Henry Jones MCV (RBC) [Entitic vol] 85.1 fL Normal 81.0-99.0 [facility] Comment on above: Performed By: #### C BC #### [facility] [address] [place] [address] Dr. Henry Jones MONO # 1.0 103/ul Critically high 0.3-0.8 [facility] Comment on above: Performed By: #### C BC #### [facility] [address] [place] [address] Dr. Henry Jones Monocytes/100 WBC (Bld) 7.4 % Normal 1.7-12.0 [facility] Comment on above: Performed By: #### C BC #### [facility] [address] [place] [address] Dr. Henry Jones NEUT # 9.7 103/ul Critically high 1.4-6.5 [facility] Comment on above: Performed By: #### C BC #### [facility] [address] [place] [address] Dr. Henry Jones Neutrophils/100 WBC (Bld) 73.6 % Normal 43.0-75.0 [facility] Comment on above: Performed By: #### C BC #### [facility] [address] [place] [address] Dr. Henry Jones Platelet mean volume (Bld) [Entitic vol] 9.9 fL Normal 9.5-13.5 [facility] Comment on above: Performed By: #### C BC #### [facility] [address] [place] [address] Dr. Henry Jones PLT 380 103/ul Normal 150-450 [facility] Comment on above: Performed By: #### C BC #### [facility] [address] [place] [address] Dr. Henry Jones RBC 4.90 106/ul Normal 4.20-5.40 [facility] Comment on above: Performed By: #### C BC #### [facility] [address] [place] [address] Dr. Henry Jones WBC 13.1 103/ul Critically high 4.0-11.0 [facility] Comment on above: Performed By: #### C BC #### [facility] [address] [place] [address] Dr. Henry Jones Cov[facility]on 12-20 SARS-CoV-2 (COVID-19) RNA IAIN+probe Ql (Unsp spec) Not detected Normal NOT DETECTED [facility] Comment on above: Result Comment: When [...] for this test is supported by the [employer] Worker Helper of Health and Human Service's declaration that [...] longer be used). Performed By: #### [facility] #### [facility] [address] [place] [address] Dr. Henry Jones LIPID PROFILEon 01-15-2022 CHOL-HDL RATIO NORM SEE BELOW Normal [facility] Comment on above: Result Comment: 3.3 - 4.4 LOW RISK 4.4 - 7.1 AVERAGE RISK 7.1 - 11.0 MODERATE RISK >11.0 HIGH RISK Performed By: #### T 3TOTAL #### [facility] [address] [place] [address] Dr. Henry Jones Cholesterol [Mass/Vol] 162 mg/dL Normal <=200 [facility] Comment on above: Performed By: #### T 3TOTAL #### [facility] [address] [place] [address] Dr. Henry Jones Cholesterol in HDL [Mass/Vol] 61 mg/dL Critically high 40-60 [facility] Comment on above: Performed By: #### T 3TOTAL #### [facility] [address] [place] [address] Dr. Henry Jones Cholesterol in LDL [Mass/Vol] 93.0 mg/dL Normal [facility] Comment on above: Performed By: #### T 3TOTAL #### [facility] [address] [place] [address] Dr. Henry Jones Cholesterol.total/C holesterol in HDL [Mass ratio] 2.7 {ratio} Normal [facility] Comment on above: Performed By: #### T 3TOTAL #### [facility] [address] [address] [address] Henry Jones HDL NORMAL > or = 60 mg/dl - LOW CARDIOVASCULAR RISK <40 mg/dl - HIGH CARDIOVASCULAR RISK Normal [facility] Comment on above: Performed By: #### T 3TOTAL #### [facility] [address] [address] [address] Henry Jones LDL CALC NORMAL SEE BELOW Normal [facility] Comment on above: Result Comment: <100 mg/dl OPTIMAL 100 - 129 mg/dl NEAR OR ABOVE OPTIMAL 130 - 159 mg/dl BORDERLINE HIGH 160 - 189 mg/dl HIGH >190 mg/dl VERY HIGH Performed By: #### T 3TOTAL #### [facility] [address] [address] [address] Henry Jones Triglyceride [Mass/Vol] 40 mg/dL Normal <=150 [facility] Comment on above: Performed By: #### T 3TOTAL #### [facility] [address] [address] [address] Henry Jones VLDL CALC 8.0 mg/dL Normal [facility] Comment on above: Performed By: #### T 3TOTAL #### [facility] [address] [place] [address] Dr. Henry Jones MAGNESIUMon 01-15-2022 Magnesium [Mass/Vol] 1.9 mg/dL Normal 1.8-2.4 [facility] Comment on above: Performed By: #### T 3TOTAL #### [facility] [address] [place] [address] Dr. Henry Jones NM STRESS/REST MULTIon 01-15 NM STRESS/REST MULTI Patient: ANTOINETTE LEE Exam Date: 01/15/2022 : 1955 Gender:F Ordering : PAUL SALGUERO Admission #: [id number] Family : DR JEISON RILEY . Order #: [id number] CLICK HERE TO VIEW EXAM RADIOLOGY REPORT [...] Banerjee MD on 01/17/2022 at 07:06 Normal [facility] PROF CHEM 8 (BAS METB)on Anion gap [Moles/Vol] 7.2 mmol/L Normal [facility] Comment on above: Performed By: #### T 3TOTAL #### [facility] [address] [place] [address] Dr. Henry Jones Calcium [Mass/Vol] 9.2 mg/dL Normal 8.5-10.1 [facility] Comment on above: Performed By: #### T 3TOTAL #### [facility] [address] [place] [address] Dr. Henry Jones Chloride [Moles/Vol] 105 mmol/L Normal 98-107 [facility] Comment on above: Performed By: #### T 3TOTAL #### [facility] [address] [place] [address] Dr. Henry Jones CO2 [Moles/Vol] 29.9 mmol/L Normal 21.0-32.0 [facility] Comment on above: Performed By: #### T 3TOTAL #### [facility] [address] [address] [address] Henry Jones Creatinine [Mass/Vol] 0.72 mg/dL Normal 0.55-1.02 [facility] Comment on above: Performed By: #### T 3TOTAL #### [facility] [address] [address] [address] Henry Jones EGFR-AF IRANIAN >60 Normal >=60 [facility] Comment on above: Performed By: #### T 3TOTAL #### [facility] [address] [address] [address] Henry Jones EGFR-NON AF IRANIAN >60 Normal >=60 [facility] Comment on above: Performed By: #### T 3TOTAL #### [facility] [address] [address] [address] Henry Jones Glucose [Mass/Vol] 113 mg/dL Critically high 74-106 [facility] Comment on above: Performed By: #### T 3TOTAL #### [facility] [address] [address] [address] Henry Jones Potassium [Moles/Vol] 4.1 mmol/L Normal 3.5-5.1 [facility] Comment on above: Performed By: #### T 3TOTAL #### [facility] [address] [place] [address] Dr. Henry Jones Sodium [Moles/Vol] 138 mmol/L Normal 136-145 [facility] Comment on above: Performed By: #### T 3TOTAL #### [facility] [address] [address] [address] Henry Jones Urea nitrogen [Mass/Vol] 24.0 mg/dL Critically high 7.0-18.0 [facility] Comment on above: Performed By: #### T 3TOTAL #### [facility] [address] [address] [address] Henry Jones Urea nitrogen/Creatinine [Mass ratio] 33.3 mg/mg Normal [facility] Comment on above: Performed By: #### T 3TOTAL #### [facility] [address] [address] [address] Henry Jones Anion gap [Moles/Vol] 8.3 mmol/L Normal [facility] Comment on above: Performed By: #### T 3TOTAL #### [facility] [address] [address] [address] Henry Jones Calcium [Mass/Vol] 9.7 mg/dL Normal 8.5-10.1 [facility] Comment on above: Performed By: #### T 3TOTAL #### [facility] [address] [address] [address] Henry Jones Chloride [Moles/Vol] 103 mmol/L Normal 98-107 [facility] Comment on above: Performed By: #### T 3TOTAL #### [facility] [address] [address] [address] Henry Jones CO2 [Moles/Vol] 31.4 mmol/L Normal 21.0-32.0 [facility] Comment on above: Performed By: #### T 3TOTAL #### [facility] [address] [address] [address] Henry Jones Creatinine [Mass/Vol] 0.81 mg/dL Normal 0.55-1.02 [facility] Comment on above: Performed By: #### T 3TOTAL #### [facility] [address] [place] [address] Dr. Henry Jones EGFR-AF IRANIAN >60 Normal >=[address] [facility] Comment on above: Performed By: #### T 3TOTAL #### [facility] [address] [address] [address] Henry Jones EGFR-NON AF IRANIAN >60 Normal >=60 [facility] Comment on above: Performed By: #### T 3TOTAL #### [facility] [address] [address] [address] Henry Jones Glucose [Mass/Vol] 114 mg/dL Critically high 74-106 [facility] Comment on above: Performed By: #### T 3TOTAL #### [facility] [address] [address] [address] Henry Jones Potassium [Moles/Vol] 3.7 mmol/L Normal 3.5-5.1 [facility] Comment on above: Performed By: #### T 3TOTAL #### [facility] [address] [address] [address] Henry Jones Sodium [Moles/Vol] 139 mmol/L Normal 136-145 [facility] Comment on above: Performed By: #### T 3TOTAL #### [facility] [id number] Henry Jones Urea nitrogen [Mass/Vol] 24.0 mg/dL Critically high 7.0-18.0 [facility] Comment on above: Performed By: #### T 3TOTAL #### [facility] [address] [address] [address] Henry Jones Urea nitrogen/Creatinine [Mass ratio] 29.6 mg/mg Normal [facility] Comment on above: Performed By: #### T 3TOTAL #### [facility] [id number] Henry Jones XR CHEST 1 Von [...] by: NICOLE HYATT Date: 2022-01-14 23:17 Normal [facility] Free T3on 10-22-2021 FT3 4.18 pg/mL Normal 2.00-4.40 [facility] [employer] Comment on above: Performed By: #### T SH, FT3, FT4 #### [facility] [address] [place], [place] [id number] Free T4on 10-22-2021 Free T4 [Mass/Vol] 1.20 ng/dL Normal 0.80-1.80 [facility] [employer] Comment on above: Performed By: #### T SH, FT3, FT4 #### [facility] [address] [id number] Q - T3 TOTALon 10-22-2021 T3, TOTAL 173 ng/dL Normal 76-181 [facility] [employer] [employer] Comment on above: Order Comment: [facility] Testing performed at: [facility], [employer] [facility], [address], [address] [facility], [place], [address], Nurse'S Aides Teacher: Meet Loredo MD [facility] Collection Date/Time: [facility] Results Received Date/Time: [facility] Reported Date/Time: Performed By: #### 8 59X, [id number] #### [facility] [address] [place] [address] Q - T3,REVERSE,LC/MS/MSon T3 REVERSE, LC/MS/MS 19 ng/dL Normal 8-25 [facility] Comment on above: Order Comment: [facility] performed at: [facility], [employer], [address] [facility] , [place], [place], , Nurse'S Aides Teacher: David Baldwin M.D.,PhD [facility] Collection Date/Time: [facility] Results Received Date/Time: [facility] Reported Date/Time: Result Comment: This test was developed and its analytical performance characteristics have been determined by [employer] [place], [place]. It has not been cleared or approved by the U.S. Food and Drug Administration. This assay has been validated pursuant to the CLIA regulations and is used for clinical purposes. Performed By: #### 8 59X, [id number] #### [facility] [address] [place] [address] TSHon 10-22-2021 TSH 0.129 uIU/mL Low 0.400-4.500 [facility] [employer] Comment on above: Performed By: #### T SH, FT3, FT4 #### [facility] [address], [place] [id number] Consent for COVID Vaccineon 11-12-2020 SARS-CoV-2 (COVID-19) RNA IAIN+probe Ql (Unsp spec) [id number] 5#1.00CD:127 [facility] Consent for COVID Vaccineon 10-12-2020 SARS-CoV-2 (COVID-19) RNA IAIN+probe Ql (Unsp spec) [id number] #1.00CD:127 [facility] Consent for Treatmenton 09-19 Consent for Treatment [id number] #1.00CD:127 [facility] Coding Summary.on 10-11-2020 Coding Summary. CODING DATE: 10/11/2020 FINAL [facility] STATUS: PAYOR: Government APC DESCRIPTION 1492 New [...] Talia Horton Date Saved: 10/11/2020 12:05 pm [facility] Vital Signs Date Time Vital Sign Value Performing Clinician Jasmine hager 03-10-2025 09:01-0400 Diastolic blood pressure 88 mm[Hg] Indramichelle Bauer DO Work Phone: [facility] 03-10-2025 09:01-0400 Systolic blood pressure 130 mm[Hg] Indra Bauer DO Work Phone: [facility] 12-20-2024 07:55-0400 Body height 160 cm Ramiro Gifford MD Work Phone: [facility] 12-20-2024 07:55-0400 Body mass index (BMI) [Ratio] 44.82 kg/m2 Ramiro Gifford MD Work Phone: [facility] 12-20-2024 07:55-0400 Body weight 114.76 kg Ramiro Gifford MD Work Phone: [facility] 12-20-2024 07:55-0400 Diastolic blood pressure 80 mm[Hg] Ramiro Gifford MD Work Phone: [facility] 12-20-2024 07:55-0400 Heart rate 58 /min Ramiro Gifford MD Work Phone: [facility] 12-20-2024 07:55-0400 SaO2% (BldA) [Mass fraction] 98 % Ramiro Gifford MD Work Phone: [facility] 12-20-2024 07:55-0400 Systolic blood pressure 138 mm[Hg] Ramiro Gifford MD Work Phone: [facility] 10-18-2024 08:36-0400 Body height 160 cm Ramiro Gifford MD Work Phone: [facility] 10-18-2024 08:36-0400 Body mass index (BMI) [Ratio] 44.82 kg/m2 Ramiro Gifford MD Work Phone: [facility] 10-18-2024 08:36-0400 Body weight 114.76 kg Ramiro Gifford MD Work Phone: [facility] 10-18-2024 08:36-0400 Diastolic blood pressure 94 mm[Hg] Ramiro Gifford MD Work Phone: [facility] 10-18-2024 08:36-0400 Heart rate 73 /min Ramiro Gifford MD Work Phone: [facility] 10-18-2024 08:36-0400 SaO2% (BldA) [Mass fraction] 96 % Ramiro Gifford MD Work Phone: [facility] 10-18-2024 08:36-0400 Systolic blood pressure 146 mm[Hg] Ramiro Gifford MD Work Phone: [facility] 09-08-2024 13:58-0500 Body height 160 cm Indra Itzkowitz DO Work Phone: [facility] 09-08-2024 13:58-0500 Body mass index (BMI) [Ratio] 47.83 kg/m2 Indra Itzkowitz DO Work Phone: [facility] 09-08-2024 13:58-0500 Body weight 122.47 kg Indra Itzkowitz DO Work Phone: [facility] 09-08-2024 13:58-0500 Diastolic blood pressure 74 mm[Hg] Indra Itzkowitz DO Work Phone: [facility] 09-08-2024 13:58-0500 Systolic blood pressure 150 mm[Hg] Indra Itzkowitz DO Work Phone: [facility] 06-28-2024 07:51-0500 Body height 157.5 cm Ramiro Gifford MD Work Phone: [facility] 06-28-2024 07:51-0500 Body mass index (BMI) [Ratio] 48.1 kg/m2 Ramiro Gifford MD Work Phone: [facility] 06-28-2024 07:51-0500 Body weight 119.3 kg Ramiro Gifford MD Work Phone: [facility] 06-28-2024 07:51-0500 Diastolic blood pressure 80 mm[Hg] Ramiro Gifford MD Work Phone: [facility] 06-28-2024 07:51-0500 Heart rate 68 /min Ramiro Gifford MD Work Phone: [facility] 06-28-2024 07:51-0500 SaO2% (BldA) [Mass fraction] 98 % Ramiro Gifford MD Work Phone: [facility] 06-28-2024 07:51-0500 Systolic blood pressure 132 mm[Hg] Ramiro Gifford MD Work Phone: [facility] 04-12-2024 09:07-0400 Body mass index (BMI) [Ratio] 48.1 kg/m2 Ramiro Gifford MD Work Phone: [facility] 04-12-2024 [id number] Body weight 119.3 kg Ramiro Gifford MD Work Phone: [facility] Encounters Encounter Date Encounter Type Care Provider Facility Start: 03-23-2025 End: 03-23-2025 Patient encounter procedure Ind[facility] Work Phone: Start: 03-23-2025 End: 03-23-2025 ambulatory Ramiro Gifford MD Work Phone: [facility] Work Phone: Start: 03-10-2025 End: 03-10-2025 Office outpatient visit 15 minutes Indra Hung Asha DO Work Phone: [facility] Comment on above: Cyst of right breast (Primary Dx) Start: 03-10-2025 End: 03-10-2025 ambulatory INDRA BAUER Not Available Start: 02-07-2025 End: 02-07-2025 Bamboo flowsheet Ramiro Gifford MD Work Phone: [facility] Start: 02-07-2025 End: 02-07-2025 Bamboo flowsheet Ramiro Gifford MD Work Phone: [facility] Start: 02-07-2025 End: 02-07-2025 Office outpatient visit 25 minutes Ramiro Gifford MD Work Phone: [facility] Comment on above: Central hypothyroidi sm (Primary Dx); Maggy's thyroiditis ; Euthyroid sick syndrome; Chronic fatigue; Morbid (severe) obesity due to excess calories ([facility]-HCC); BMI 40.0-44.9, adult ([facility]-HCC) Start: 02-07-2025 End: 02-07-2025 ambulatory RAMIRO GIFFORD Not Available Start: 12-20-2024 End: 12-20-2024 Bamboo flowsheet Ramiro Gifford MD Work Phone: [facility] Start: 12-20-2024 End: 12-20-2024 Bamboo flowsheet Ramiro Gifford MD Work Phone: [facility] Start: 12-20-2024 End: 12-20-2024 Office outpatient visit 25 minutes Ramiro Gifford MD Work Phone: [facility] Comment on above: Benign hypertension (CMS/HCC) (Primary Dx); Hypertensive nephropathy (CMS/HCC); Stage 3a chronic kidney disease (HCC) (CMS/HCC); Impaired glucose tolerance; Sleep disorder due to a general medical condition, mixed type; Morbid (severe) obesity due to excess calories (CMS/HCC); BMI 40.0-44.9, adult (CMS/HCC); Venous insufficiency; Chronic fatigue Start: 12-20-2024 End: 12-20-2024 ambulatory RAMIRO GIFFORD Not Available Start: 10-18-2024 End: 10-18-2024 Bamboo flowsheet Ramiro Gifford MD Work Phone: [facility] Start: 10-18-2024 End: 10-18-2024 Bamboo flowsheet Ramiro Gifford MD Work Phone: [facility] Start: 10-18-2024 End: 10-18-2024 Patient encounter procedure Ramiro Gifford MD Work Phone: [facility] Comment on above: Encounter for Medica re annual wellness exam (Primary Dx); Advance directive in chart; Encounter for screening for other disorder; Screening for alcohol problem; Benign hypertension (CMS/HCC); Hypertensive nephropathy (CMS/HCC); Morbid (severe) obesity due to excess calories (CMS/HCC); BMI 40.0-44.9, adult (CMS/HCC); Maggy's thyroiditis (CMS/HCC); Central hypothyroidism (CMS/HCC); High risk of cardiac event Start: 10-18-2024 End: 10-18-2024 ambulatory RAMIRO GIFFORD Not Available Start: 10-04-2024 End: 10-04-2024 ambulatory RAMIRO GIFFORD Not Available Start: 09-08-2024 End: 09-08-2024 Office outpatient new 60 minutes Indra Hung Itlucero DO Work Phone: [facility] Comment on above: Cyst of right breast (Primary Dx); Abnormal mammography Start: 09-08-2024 End: 09-08-2024 ambulatory INDRA Hung ITNEHAOUMAR Not Available Start: 08-05-2024 End: 08-05-2024 ambulatory RAMIRO GIFFORD Not Available Start: 07-30-2024 End: 07-30-2024 ambulatory RAMIRO GIFFORD Not Available Start: 07-19-2024 End: 07-19-2024 Bamboo flowsheet Buster Fontaine MD Work Phone: [facility] Start: 07-19-2024 End: 07-19-2024 Bamboo flowsheet Buster Fontaine MD Work Phone: [facility] Start: 07-19-2024 End: 07-19-2024 ambulatory [...] 04-12-2024 ambulatory RAMIRO GIFFORD Not Available Start: 09-16-2022 End: 09-17-[address] RAMIRO GIFFORD . Facility:[facility] Start: 04-23-2022 End: 04-24-[address] RAMIRO GIFFORD . Facility:[facility] Start: 02-04-2022 End: 02-05-[address] RAMIRO GIFFORD . Facility:[facility] Start: 01-15-2022 End: 01-17-[address] JEISON RILEY Facility: Procedures Date Procedure Procedure Detail Performing Clinician Start: 03-23-2025 Mammography of right breast Ramiro Gifford MD Work Phone: Start: 03-23-2025 Ultrasonography of r ight breast Ramiro Gifford MD Work Phone: Start: 08-05-2024 Mammography Indra Bhavya barker DO Work Phone: Start: 07-19-2024 End: [...] Screening for malign ant neoplasm of colon [facility] Start: 10-18-2025 Medicare Annual Well ness (AWV) Medicare Annual Wellness (AWV) [facility] Start: 10-18-2025 Pneumococcal Vaccine : 65+ Years (1 of 2 - PCV) Pneumococcal Vaccine: 65+ Years (1 of 2 - PCV) [facility] Comment on above: Postponed from 04/10 (Patient Refused) Postponed from 04/10 (Patient Refused) Start: 08-08-2025 End: 08-08-2025 Patient encounter procedure [facility] Start: 08-05-2025 Screening for malign ant neoplasm of breast Mammogram [facility] Start: 07-25-2025 End: 07-25-2025 Patient encounter procedure [facility] Start: 07-10-2025 End: 02-07-2026 T3, reverse T3, reverse Lab Routine Central hypothyroidism Chronic fatigue Expected: 07/10/2025, Expires: 02/07/2026 [facility] Comment on above: Expected: 07/10/2025 , Expires: 02/07/2026 Start: 07-10-2025 End: 02-07-2026 Thyroxine (T4) free [Mass/volume] in Serum or Plasma T4, free Lab Routine Central hypothyroidism Chronic fatigue Expected: 07/10/2025, Expires: 02/07/2026 [facility] Comment on above: Expected: 07/10/2025 , Expires: 02/07/2026 Start: 07-10-2025 End: 02-07-2026 Triiodothyronine (T3) [Mass/volume] in Serum or Plasma T3 Lab Routine Chronic fatigue Euthyroid sick syndrome Expected: 07/10/2025, Expires: 02/07/2026 [facility] Work Phone: Comment on above: Expected: 07/10/2025 , Expires: 02/07/2026 Start: 07-10-2025 End: 02-07-2026 Triiodothyronine (T3) Free [Mass/volume] in Serum or Plasma T3, free Lab Routine Chronic fatigue Euthyroid sick syndrome Expected: 07/10/2025, Expires: 02/07/2026 [facility] Comment on above: Expected: 07/10/2025 , Expires: 02/07/2026 Start: 03-10-2025 End: 08-21-2025 Patient encounter procedure 03/10/2025 9:00 AM EDT Office Visit [facility] [address] [facility] [address] [place] [address] Indra Bauer DO [address] [facility] [address] [place] [address] [facility] Start: 02-07-2025 End: 02-07-2025 Patient encounter procedure 02/07/2025 9:00 AM EDT Office Visit [facility] 100 [address] [facility] [address] [place] [address] Ramiro Gifford MD 112 [facility] 100 [place] [address] (Fax) Central hypothyroidism ; ESS (euthyroid sick syndrome); Maggy's thyroiditis ; Impaired glucose tolerance; Chronic fatigue; Morbid (severe) obesity due to excess calories ([facility]); BMI 40.0-44.9, adult ([facility]) [facility] Comment on above: Central hypothyroidi sm ; ESS (euthyroid sick syndrome); Maggy's thyroiditis ; Impaired glucose tolerance; Chronic fatigue; Morbid (severe) obesity due to excess calories ([facility]); BMI 40.0-44.9, adult ([facility]) Start: 02-04-2025 End: 02-04-2025 Professional / ancillary services management [facility] Start: 02-02-2025 End: 11-06-2025 DBT Breast - right diagnostic Right diagnostic mammogram with tomosynthesis Imaging Routine Abnormal mammography Expected: 02/02/2025, Expires: 11/06/2025 [facility] Work Phone: Comment on above: Expected: 02/02/2025 , Expires: 11/06/2025 Start: 02-02-2025 End: 11-06-2025 US Breast - right limited Right breast US limited Imaging Routine Abnormal mammography Expected: 02/02/2025, Expires: 11/06/2025 [facility] Comment on above: Expected: 02/02/2025 , Expires: 11/06/2025 Start: 12-21-2024 End: 12-20-2025 Electrolyte panel Electrolyte panel Lab Routine Stage 3a chronic kidney disease (HCC) (CMS/HCC) Expected: 12/21/2024, Expires: 12/20/2025 [facility] Comment on above: Expected: 12/21/2024 , Expires: 12/20/2025 Start: 12-21-2024 End: 12-20-2025 T3, reverse T3, reverse Lab Routine Chronic fatigue Expected: 12/21/2024, Expires: 12/20/2025 [facility] Comment on above: Expected: 12/21/2024 , Expires: 12/20/2025 Start: 12-21-2024 End: 12-20-2025 Thyrotropin [Units/volume] in Serum or Plasma TSH Lab Routine Chronic fatigue Expected: 12/21/2024, Expires: 12/20/2025 [facility] Comment on above: Expected: 12/21/2024 , Expires: 12/20/2025 Start: 12-21-2024 End: 12-20-2025 Thyroxine (T4) free [Mass/volume] in Serum or Plasma T4, free Lab Routine Chronic fatigue Expected: 12/21/2024, Expires: 12/20/2025 [facility] Comment on above: Expected: 12/21/2024 , Expires: 12/20/2025 Start: 12-21-2024 End: 12-20-2025 Triiodothyronine (T3) [Mass/volume] in Serum or Plasma T3 Lab Routine Chronic fatigue Expected: 12/21/2024, Expires: 12/20/2025 [facility] Work Phone: Comment on above: Expected: 12/21/2024 , Expires: 12/20/2025 Start: 12-21-2024 End: 12-20-2025 Triiodothyronine (T3) Free [Mass/volume] in Serum or Plasma T3, free Lab Routine Chronic fatigue Expected: 12/21/2024, Expires: 12/20/2025 [facility] Comment on above: Expected: 12/21/2024 , Expires: 12/20/2025 Start: 12-20-2024 End: 12-20-2024 Patient encounter procedure [facility] Comment on above: Benign hypertension (CMS/HCC); Hypertensive nephropathy (CMS/HCC); Chronic kidney disease (CKD), stage II (mild); Impaired glucose tolerance; Sleep disorder due to a general medical condition, mixed type; Morbid (severe) obesity due to excess calories (CMS/HCC); BMI 40.0-44.9, adult (CMS/HCC) Start: 10-18-2024 End: 10-18-2024 Patient encounter procedure 10/18/2024 8:30 AM EDT Office Visit [facility] [address] [facility] 100 [place] [address] Ramiro Gifford MD [address] [facility] [address] [place] [address] Encounter for Medicare annual wellness exam; Advance directive in chart; Encounter for screening for other disorder; Screening for alcohol problem; Benign hypertension (CMS/HCC); Hypertensive nephropathy (CMS/HCC); Chronic kidney disease (CKD), stage II (mild); Impaired glucose tolerance; Screening for diabetes mellitus (DM); Screening for lipid disorders; Screening for osteoporosis; Menopause [facility] Comment on above: [facility] Advance directive in chart; Encounter for screening for other disorder; Screening for alcohol problem; Benign hypertension (CMS/HCC); Hypertensive nephropathy (CMS/HCC); Chronic kidney disease (CKD), stage II (mild); Impaired glucose tolerance; Screening for diabetes mellitus (DM); Screening for lipid disorders; Screening for osteoporosis; Menopause Start: 10-10-2024 End: 04-12-2025 T3, reverse T3, reverse Lab Routine Chronic fatigue Central hypothyroidism (CMS/HCC) Expected: 10/10/2024, Expires: 04/12/2025 [facility] Work Phone: Comment on above: Expected: 10/10/2024 , Expires: 04/12/2025 Start: 10-10-2024 End: 04-12-2025 Thyroxine (T4) free [Mass/volume] in Serum or Plasma T4, free Lab Routine Chronic fatigue Central hypothyroidism (CMS/HCC) Expected: 10/10/2024, Expires: 04/12/2025 [facility] Comment on above: Expected: 10/10/2024 , Expires: 04/12/2025 Start: 10-10-2024 End: 04-12-2025 Triiodothyronine (T3) [Mass/volume] in Serum or Plasma T3 Lab Routine Chronic fatigue Central hypothyroidism (CMS/HCC) Expected: 10/10/2024, Expires: 04/12/2025 [facility] Comment on above: Expected: 10/10/2024 , Expires: 04/12/2025 Start: 10-10-2024 End: 04-12-2025 Triiodothyronine (T3) Free [Mass/volume] in Serum or Plasma T3, free Lab Routine Chronic fatigue Central hypothyroidism (CMS/HCC) Expected: 10/10/2024, Expires: 04/12/2025 [facility] Comment on above: Expected: 10/10/2024 , Expires: 04/12/2025 Start: 10-04-2024 End: 10-04-2024 Patient encounter procedure [facility] Start: 09-15-2024 Medicare Annual Well ness (AWV) Medicare Annual Wellness (AWV) [facility] Start: 09-13-2024 Pneumococcal Vaccine : 65+ Years (1 of 2 - PCV) Pneumococcal Vaccine: 65+ Years (1 of 2 - PCV) [facility] Comment on above: Postponed from 04/10 (Patient Refused) Start: 07-19-2024 End: 07-19-2024 Patient encounter procedure [facility] Comment on above: Arrived Start: 07-03-2024 Screening for malign ant neoplasm of breast Mammogram [facility] Start: 06-28-2024 End: 06-28-2024 Patient encounter procedure [facility] Comment on above: Arrived Start: 1961 Pneumococcal Vaccine : 65+ Years (1 of 2 - PCV) Pneumococcal Vaccine: 65+ Years (1 of 2 - PCV) [facility] Start: 1956 Screening for malign ant neoplasm of colon [facility] Immunizations Immunization Date Immunization Notes Care Provider Angelo cazares 10-23-2021 Moderna SARS-CoV-2 Vaccination Ramiro Gifford MD Work Phone: [facility] 06-26-2015 tetanus toxoid, redu neli diphtheria toxoid, and acellular pertussis vaccine, adsorbed Ramiro Gifford MD Work Phone: [facility] Payers Date Payer Category Payer Self-pay 2023 Unknown BRITANY GARG [id number] 2023-Present [address] [place] [address] [id number] 2022 Medicare HU[employer]NA MEDICARE ADVANTAGE HU[employer] MEDICARE [id number] 2022-Present [address] [address] [place] [address] [id number] 2022 Medicare (Managed Care) [employer] EDICARE ADVANTAGE [id number] 2022 Medicare [id number] 2008 Government (not [facility] or Medicaid) [id number] 1959 Medicare [id number] 1959 Unknown [id number] 1956 Unknown [id number] 2.16.840.1.340594.3.579. 2.593 1956 Unknown [id number] 2.16.840.1.481669.3.579. 2.593 1956 Unknown [id number] 2.16.840.1.263227.3.579. 2.593 1956 Unknown [id number] 2.16.840.1.823731.3.579. 2.593 1956 Unknown [id number] 2.16.840.1.584912.3.579. 2.1259 1956 Unknown [id number] 2.16.840.1.470112.3.579. 2.125 1956 Unknown [id number] 2.16.840.1.006864.3.579. 2.125 1956 Unknown [id number] 2.16.840.1.904764.3.579. 2.125 1956 Unknown [id number] 2.16.840.1.263966.3.579. 2.1259 1956 Unknown [id number] 2.16840.1.445445.3.579. 2.125 1956 Unknown [id number] 2.16840.1.614563.3.579. 2.125 1956 Unknown [id number] 2.16840.1.385557.3.579. 2.125 1956 Unknown [id number] 2.16.840.1.515870.3.579. 2.1259 1956 Unknown [id number] 2.16840.1.223385.3.579. 2.125 1956 Unknown [id number] 2.16.840.1.078361.3.579. 2.125 1956 Unknown [id number] 2.16840.1.309754.3.579. 2.1259 Unknown [id number] 2.16.840.1.345230.3.579. 2.531 Social History Date Type Detail Facility Start: 02-03-2023 Tobacco smoking status SCIS Never smoked tobacco [facility] Start: 02-03-2023 Tobacco use and exposure Smokeless tobacco non-user [facility] Start: 01-26-2024 End: 03-10-2025 Alcoholic beverage intake Ex-drinker (finding) [facility] Start: 07-29-2023 End: 01-31-2025 History of Social function [facility] Start: 07-29-2023 End: 01-31-2025 Humiliation, Afraid, Rape, and Kick questionnaire [HARK] [facility] Within the last year , have you been afraid of your partner or ex-partner? No [facility] Do you belong to any clubs or organizations such as bahai groups, unions, fraternal or athletic groups, or [...] [facility] Start: 01-31-2023 Education 13 [facility] Start: 01-31-2023 Alcohol Comment Caffeine intake:1-2 cups per day [facility] Start: 1955 Sex assigned at Female [facility] Start: 07-01-2023 Gender identity Identifies as female gender (finding) [facility] Start: 07-01-2023 Sexual orientation Heterosexual (finding) [facility] How often to you hav e a drink containing alcohol? Monthly or less [facility] How many standard dr inks containing alcohol do you have on a typical day? 1 or 2 [facility] Do you feel stress - tense, restless, nervous, or anxious, or unable to sleep at night because your mind is troubled all the time - these days [OSQ] Only a little [facility] Tobacco smoking stat NHIS Unknown if ever smoked [facility] Work Phone: Sex Female (finding) [facility] Goals Date Patient Goal Desired Activity /State Personal health goal Functional Status Date Assessment Result Facility 02-07-2025 Patient Health Quest ionnaire 2 item (PHQ-2) [Reported] [facility] 12-20-2024 Patient Health Quest ionnaire 2 item (PHQ-2) [Reported] [facility] Clinical Notes 04-12-2024 to 03-10-2025 Indra Bauer DO - 03/10/2025 9:00 AM Nikki Gifford MD - 02/07/2025 9:00 AM Nikki Gifford MD - 12/20/2024 8:00 AM Nikki Gifford MD - 10/18/2024 8:30 AM EDT Note Date & Type Note Facility 03-10-2025 History of Presen t illness Narrative Images from the original note were not included. Antoinette Lee 1955 Antoinette Lee is a 69 y.o. female presents with chief complaint of 6mos. follow up Rt. mamm/US w/exam HPI: HPI Venita presents for her 6 mth follow up on right breast imaging which was not done yet. She had a benign breast biopsy in [...] COMPLEX PO) 1 tablet, 3 times weekly levothyroxine (SYNTHROID, LEVOXYL) 25 mcg, Oral, 2 times daily before meals liothyronine (Cytomel) 5 MCG tablet Take 2 tablets in AM and 2 tablets in PM on an empty stomach. CRESCENCIO; Sigma or Greenstone brands only losartan-hydroCHLOROthiazide (Hyzaar) 100-25 MG tablet 1 tablet, Oral, Daily metoprolol succinate XL (TOPROL-XL) 50 mg, Oral, Daily Multiple Vitamin (Multi-Vitamin) tablet 1 tablet, Daily RT spironolactone (Aldactone) 25 MG tablet Take 2 tablets in AM and 1 tablet inPM traZODone (DESYREL) 75 mg, Oral, Nightly zaleplon [...] COVID-19 determined by clinical diagnostic criteria Depression Does use hearing aid Maggy's disease HL (hearing loss) Hypertension Low iron Macular degeneration Obesity Personal history of medical treatment 06/2020 Acute hypoxic respiratory failure secondary to covid 19 Restrictive lung disease Scoliosis Situational stress Thyroid disease Thyroid nodules right by ultrasound Thyroid nodule Varicella Social History Tobacco Use Smoking status: Never Smokeless tobacco: Never Vaping Use Vaping status: Never Used Substance Use Topics Alcohol use: Not Currently Comment: Caffeine intake:1-2 cups per day Drug use: Never Past Surgical History: Procedure Laterality Date ANKLE SURGERY Left 2000 ankle plate ANKLE SURGERY 2000 ankle plate removed APPENDECTOMY 1981 SECTION, LOW TRANSVERSE 1979, 1981 EXPLORATORY LAPAROTOMY HYSTERECTOMY 1988 JOINT REPLACEMENT 07/09, 12/08 KNEE SURGERY 1998 [employer] OTHER SURGICAL HISTORY 12/2021 [facility] TONSILLECTOMY TOTAL KNEE ARTHROPLASTY Left TOTAL KNEE ARTHROPLASTY Right 2010 TUBAL LIGATION 03/12/82 FAMILY HISTORY Family History Problem Relation Name Age of Onset Hypertension Mother Nikki Hearing loss Mother Nikki Heart disease Father Girma Hearing loss Father Girma Hodgkin's lymphoma Sister Yudi Depression Sister Yudi Cancer Sister Yudi Depression Brother Gabriele Heart attack Brother Thyroid disease Daughter Breast cancer Mother's Sister Colon cancer Neg Hx Ovarian cancer Neg Hx Pancreatic cancer Neg Hx REVIEW OF SYMPTOMS: Review of Systems Constitutional: Negative for diaphoresis and unexpected weight change. Sweating throughout the day HENT: Positive for tinnitus. Negative for hearing loss and voice change. Respiratory: Negative for shortness of breath. Cardiovascular: Negative for chest pain and palpitations. Musculoskeletal: Positive for arthralgias. Neurological: Positive for headaches. Negative for dizziness and seizures. All other systems reviewed and are negative. Hematological: Negative for adenopathy. Does not bruise/bleed easily. OBJECTIVE: Visit Vitals BP 130/88 OB Status Hysterectomy Smoking Status Never Physical Exam Exam conducted with a iron plastic bullet maker present. HENT: Head: Normocephalic. Cardiovascular: Rate and [...] Assessment/Plan Problem List Items Addressed This Visit Cyst of right breast - Primary Pat [...] obvious solid vascular mass to suggest neoplasm. Venita was confused and accidentally cancelled the order for repeat imaging of the right breast. I will re-order the imaging and call her with the results. She will be due for bilateral mamm's in July, I'll see her at that time. documented in this encounter [facility] 02-07-2025 History of Presen t illness Narrative Images from the original note were not included. Patient ID: Venita Lee is a 69 y.o. female who presents for: Thyroid: Pt here today to review his/hers thyroid labs and any medication changes needed. Fatigue: Present, worsened Weight Gain: Absent Inability to lose weight: Present, Unchanged Hair Changes: absent He/She is following the thyroid diet: Good He/She are taking medications as directed: Good He/She are exercising at least 3 days out of the week for 30 minutes or more: Good Review of Systems Constitutional: Positive for fatigue. Negative for appetite change. HENT: Negative for trouble swallowing and voice change. Cardiovascular: Negative for palpitations. Musculoskeletal: Negative for arthralgias and myalgias. Psychiatric/Behavioral: Positive for sleep disturbance. The patient is not nervous/anxious. Endocrine: Positive for cold intolerance. Negative for heat intolerance. No visits with results within 1 Month(s) from this visit. Latest known visit with results is: Office Visit on 12/20/2024 Component Date Value Ref Range Status T3, TOTAL 01/20/2025 138 76 - 181 ng/dL Final T3 REVERSE, LC/MS/MS 01/20/2025 23 8 - 25 ng/dL Final Comment: This test was developed and its analytical performance characteristics have been determined by [place] It has not been cleared or approved by the U.S. Food and Drug Administration. This assay has been validated pursuant to the CLIA regulations and is used for clinical purposes. T3, FREE 01/20/2025 3.2 2.3 - 4.2 pg/mL Final T4, FREE 01/20/2025 1.2 0.8 - 1.8 ng/dL Final TSH 01/20/2025 1.80 0.40 - 4.50 mIU/L Final Sodium 01/20/2025 138 135 - 146 mmol/L Final Potassium, Bld 01/20/2025 4.7 3.5 - 5.3 mmol/L Final Chloride 01/20/2025 102 98 - 110 mmol/L Final Carbon Dioxide 01/20/2025 30 20 - 32 mmol/L Final Calculated THY Ratio: 6 Objective The patient is pleasant and in no acute distress The patient has good eye contact and clear speech Visit Vitals OB Status Hysterectomy Smoking Status Never Allergies Allergen Reactions Magnesium Nausea Only Other [...] 3 (three) times a week. losartan-hydroCHLOROthiazide (Hyzaar) 100-25 MG tablet Take 1 tablet by mouth Daily 90 tablet 1 metoprolol succinate XL (Toprol-XL) 50 MG 24 hr tablet Take 1 tablet (50 mg) by mouth Daily 90 tablet 1 Multiple Vitamin (Multi-Vitamin) tablet Take 1 tablet by mouth in the morning. spironolactone (Aldactone) 25 MG tablet Take 2 tablets in AM and 1 tablet inPM 270 tablet 1 traZODone (Desyrel) 50 MG tablet Take 1.5 tablets (75 mg) by mouth at bedtime 135 tablet 1 zaleplon (Sonata) 10 MG capsule Take 1 capsule at bedtime for sleep 90 capsule 1 [DISCONTINUED] thyroid (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 135 tablet 0 No current facility-administered medications on file prior to visit. 1. Central hypothyroidism (Primary) This is a complex chronic problem, unstable, not to goal; managment requires moderate decision making I reviewed diet [...] new medication start, or stop medication as appropriate The patient has been instructed to follow up and bring a diet and exercise log, and the importance of follow up and compliance. The patient was given a chance to ask questions today and all questions were answered. The patient is to contact us if any other questions arise or if any problems occur. - T4, free; Future - T3, reverse; Future - levothyroxine (Synthroid, Levoxyl) 50 MCG tablet; Take 0.5 tablets (25 mcg) by mouth 2 (two) times a day before meals Dispense: 90 tablet; Refill: 1 - T4, free - T3, reverse 2. Maggy's thyroiditis Chronic problem, the original causative of the previous acquired hypothyroidism, clinically asymptomatic and follow longitudinally. 3. Euthyroid sick syndrome In prescribing an adjustment to their current medication, consideration of the following encompasses moderate decision making; the current prescriptions and supplements, the current allergies and medication intolerances, the current medical conditions, and potential drug interactions. Risks, benefits, and reason for adjusting their current medication were discussed. The patient was given a chance to ask questions today and all questions were answered. The patient is to contact us if any other questions arise or if any problems occur with the adjustment in their medication. - T3; Future - T3, free; Future - liothyronine (Cytomel) 5 MCG tablet; Take 2 tablets in AM and 2 tablets in PM on an empty stomach. CRESCENCIO; Sigma or Greenstone brands only Dispense: 360 tablet; Refill: 1 - T3 - T3, free 4. Chronic fatigue Chronic problem, unstable, complex in nature with moderate decision making. I discussed with the patient or their sales and service representative, their fatigue issues. We discussed how this is either not improved or not adequately addressed. We discussed how this is almost always a multifactorial problem. We discussed how we can frequently improve the symptoms, but may not be able to completely cure or resolve the issue. We discussed that the patient will need to continue to make lifestyle changes including diet, sleep, exercise, and stress management as appropriate. We further discussed how we will continue to search for refinements in their current treatments or evaluation for further disease processes and then support or treat them as appropriate. The patient was given a chance to ask questions and all questions were answered. - T3; Future - T3, free; Future - T4, free; Future - T3, reverse; Future - T3 - T3, free - T4, free - T3, reverse 5. Morbid (severe) obesity due to excess calories ([facility]) Lifestyle changes as noted. It is noted the patient is getting a little bit of exercise and actually has lost some weight. Encouraged this further. 6. BMI 40.0-44.9, adult ([facility]) Defines the morbid obesity documented in this encounter [facility] 12-20-2024 History of Presen t illness Narrative Images from the original note were not included. Patient ID: Venita Lee is a 69 y.o. female who presents for: Hypertension Patient is here for follow-up of elevated blood pressure. She is exercising and is adherent to a low-salt diet. Blood pressure is well controlled at home. Cardiac symptoms: lower extremity edema. Patient denies chest pain, dyspnea, irregular heart beat, and palpitations. Cardiovascular risk factors: advanced age (older than 55 for men, 65 for women), hypertension, microalbuminuria, obesity (BMI >= 30 kg/m2), and sedentary lifestyle. Use of agents associated with hypertension: thyroid hormones. History of target organ damage: chronic kidney disease. Sleep Disorder: Onset of symptoms has been several years. How many hours of sleep is patient getting on average night: 6.5-7 How long does it take patient to get to sleep each night: varies 30 minutes Does he/she have trouble falling asleep: no Does he/she have trouble maintaining sleep: no Does patient have good sleep hygiene: yes Review of Systems Constitutional: Negative for activity change and fatigue. Respiratory: Negative for cough, shortness of breath and wheezing. Cardiovascular: Negative for chest pain, palpitations and leg swelling. Neurological: Negative for light-headedness and headaches. She is complaining that the swelling overall is worsening in her legs symmetrically. When she has to wear socks she has a significant sock line and that actually causes discomfort. Objective The patient is pleasant and in no acute distress. The neck is supple and trachea is midline. No masses are appreciated. The heart is regular rate and rhythm without S3, S4. No murmur. The patient has normal respiratory pattern. The breath sounds are symmetrical without evidence of rhonchi or rales. No wheezing. The skin is warm and dry. The lower extremities have trace Pitting edema, there appears to be some nonpitting edema. Her office visit is 1st thing this morning. The patient has good eye contact and speech is clear. Appropriate affect. 01/26/2024 8:24 AM 04/12/2024 9:07 AM 06/28/2024 7:51 AM 09/08/2024 1:58 PM 10/04/2024 7:57 AM 10/18/2024 8:36 AM 12/20/2024 7:55 AM Vitals BMI 48.83 kg/m2 48.1 kg/m2 48.1 kg/m2 47.83 kg/m2 47.83 kg/m2 44.82 kg/m2 44.82 kg/m2 BSA (m2) 2.3 m2 2.28 m2 2.28 m2 2.33 m2 2.33 m2 2.26 m2 2.26 m2 Systolic 128 132 150 146 138 Diastolic 74 80 74 94 80 Heart Rate 85 68 73 58 SpO2 97 % 98 % 96 % 98 % Height (in) 5' 2 5' 2 5' 3 5' 3 5' 3 5' 3 Weight (lb) 267 263 263 270 270 253 253 Visit Report Report Report Report Report Report PDMP reviewed, Ramiro Gifford MD on 12/20/2024 8:08 AM Appears as expected. Allergies Allergen Reactions Magnesium Nausea Only Other [...] 3 (three) times a week. losartan-hydroCHLOROthiazide (Hyzaar) 100-25 MG tablet Take 1 tablet by mouth [...] tablet (25 mg) before bedtime. 180 tablet 1 thyroid (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 traZODone (Desyrel) 50 MG tablet Take 1.5 tablets (75 mg) by mouth at bedtime 135 tablet 1 zaleplon (Sonata) 10 MG capsule Take 1 capsule at bedtime for sleep 90 capsule 1 [DISCONTINUED] losartan-hydroCHLOROthiazide (Hyzaar) 100-25 MG tablet Take 1 tablet by mouth Daily No current facility-administered medications on file prior to visit. 1. Benign hypertension (CMS/HCC) (Primary) Chronic problem, stable, to goal. We did discuss that she has borderline blood pressure control. We did talk about several medication options. I stressed the importance of having some sort of aerobic exercise which she is not getting any of. Even just starting with short 5 or 10 minute walks would be a good thing. In prescribing a renewal to their current medication, consideration of the following encompasses moderate decision making; the current prescriptions and supplements, the current allergies and medication intolerances, current medical conditions, and potential drug interactions. The patient was given a chance to ask questions today and all questions were answered. - losartan-hydroCHLOROthiazide (Hyzaar) 100-25 MG tablet; Take 1 tablet by mouth Daily Dispense: 90 tablet; Refill: 1 - metoprolol succinate XL (Toprol-XL) 50 MG 24 hr tablet; Take 1 tablet (50 mg) by mouth Daily Dispense: 90 tablet; Refill: 1 2. Hypertensive nephropathy (CMS/HCC) Chronic problem, unstable, demonstrating progression of end organ damage from their current state of health. I stressed the importance of keeping blood pressure and blood sugar to goal, staying well hydrated, avoiding NSAIDs, and aerobic exercises as tolerated. Continue to monitor longitudinally. 3. Stage 3a chronic kidney disease (HCC) (CMS/HCC) Chronic problem, unstable, progressing, defining the end organ damage of the nephropathy. I stressed the importance of keeping blood pressure and blood sugar to goal, staying well hydrated, and aerobic exercises as tolerated. Continue to monitor longitudinally - Electrolyte panel; Future - Electrolyte panel 4. Impaired glucose tolerance Chronic problem, stable, continue to monitor longitudinally. 5. Sleep disorder due to a general medical condition, mixed type Chronic problem that is stable with her medications. Some how she is out of sync and based on her PDMP she should have another 5-6 weeks of medicine yet. We have mutually agreed that she will call when it is time. She understands that the sonata is a controlled substance. I specifically note the patient has one [...] medications need regular review and prescribing optimization. 6. Morbid (severe) obesity due to excess calories (CMS/HCC) Encouraged lifestyle changes 7. BMI 40.0-44.9, adult (CMS/HCC) Defines her BMI 8. Venous insufficiency We discussed some options with this including different diuretics. I also stressed the importance of weight loss and exercise. We mutually agreed that we are going to go ahead and increase the spironolactone a little bit. We will need to recheck her electrolytes because of the possibility of hyperkalemia with the losartan and the spironolactone and stage IIIA chronic kidney disease. In prescribing an adjustment to their current medication, consideration of the following encompasses moderate decision making; the current prescriptions and supplements, the current allergies and medication intolerances, the current medical conditions, and potential drug interactions. Risks, benefits, and reason for adjusting their current medication were discussed. The patient was given a chance to ask questions today and all questions were answered. The patient is to contact us if any other questions arise or if any problems occur with the adjustment in their medication. - spironolactone (Aldactone) 25 MG tablet; Take 2 tablets in AM and 1 tablet inPM Dispense: 270 tablet; Refill: 1 9. Chronic fatigue Chronic problem, stable, complex in nature with moderate decision making. I discussed with the patient and/or their sales and service representative, their fatigue issues. We discussed how [...] questions and all questions were answered. - T3; Future - T3, reverse; Future - T3, free; Future - T4, free; Future - TSH; Future - T3 - T3, reverse - T3, free - T4, free - TSH documented in this encounter [facility] 10-18-2024 History of Presen t illness Narrative Images from the original note were not included. Antoinette Lee is a 69 y.o. female presents with chief complaint of Annual Exam HPI: I have reviewed and reconciled the history and medication list with the patient today. CURRENT PCP/CARE TEAM: Patient Care Team: Ramiro Gifford MD as PCP - General (Family Medicine) Over the past 2 weeks, how often have you been bothered by any of the following problems? Little interest or pleasure in doing things: Not at all Feeling down, depressed, or hopeless: Not at all Patient Health Questionnaire-2 Score: 0 Rao Fall Risk History of Falling, Immediate or Within 3 Months: No Secondary Diagnosis: No Ambulatory Aid: Walks without aid/bedrest/nurse assist Intravenous Therapy/Heparin Lock: No Gait/Transferring: Normal/bedrest/immobile Mental Status: Oriented to own ability Rao Fall Risk Score: 0 Health Risk Assessment Form Do you need help eating, bathing, using the toilet, dressing, or getting around your home?: No Can you prepare your own meals?: Yes Can you do your own housework without help?: Yes Can you shop for groceries or clothes without help?: Yes Do you exercise for about 20 minutes 3 or more days a week?: No How confident are you that you can control and manage most of your health problems?: Very confident Can you mange your money, credit cards and accounts, pay bills and taxes?: Yes Vision Screening: Yes, patient sees regular public service director/porcelain mixer Hearing Screening: Has some hearing loss Cognitive Screening Self Assessment: No concerns rasied by family members, friends, or caretakers Three Word Registration: Captain, Garden, Picture Clock Drawing: Normal Clock - 2 Three Word Recall: All 3 words correct - 3 Total Score (0-5 Points): 5 Pain Assessment Pain Score: 3 HISTORIES: PAST MEDICAL HISTORY: Past Medical History: Diagnosis Date Allergic [...] disease (CMS/HCC) Thyroid nodules right by ultrasound Thyroid nodule (CMS/HCC) Varicella SURGICAL HISTORY: Past Surgical History: Procedure Laterality Date ANKLE SURGERY Left 2000 ankle plate ANKLE SURGERY 2000 ankle plate removed APPENDECTOMY 1981 SECTION, LOW TRANSVERSE EXPLORATORY LAPAROTOMY HYSTERECTOMY 1988 JOINT REPLACEMENT 07/09, 12/08 KNEE SURGERY 1998 Unispacer OTHER SURGICAL HISTORY 12/2021 cervical nerve root ablation at [facility] TONSILLECTOMY TOTAL KNEE ARTHROPLASTY Left TOTAL KNEE ARTHROPLASTY Right 2010 TUBAL LIGATION 03/12/82 SOCIAL HISTORY: Social History Tobacco Use Smoking status: Never Smokeless tobacco: Never Vaping Use Vaping status: Never Used Substance Use Topics Alcohol use: Not Currently Comment: Caffeine intake:1-2 cups per day Drug use: Never Depression: Not at risk (10/17/2024) PHQ-2 PHQ-2 Score: 0 FAMILY HISTORY: Family History Problem Relation Name Age of Onset Hypertension Mother Nikki Hearing loss Mother Nikki Heart disease Father Girma Hearing loss Father Girma Hodgkin's lymphoma Sister Yudi Depression Sister Yudi Cancer Sister Yudi Depression Brother Gabriele Heart attack Brother Thyroid disease Daughter Breast cancer Mother's Sister Colon cancer Neg Hx Ovarian cancer Neg Hx Pancreatic cancer Neg Hx MEDICATIONS: Current Outpatient Medications Medication Instructions albuterol HFA 90 mcg/act inhaler 2 puffs, Inhalation, Every 6 hours PRN albuterol 2.5 mg, Nebulization, Every 6 hours PRN Iron Combinations (IRON COMPLEX PO) 1 tablet, 3 times weekly losartan-hydroCHLOROthiazide (Hyzaar) 100-25 MG tablet 1 tablet, Oral, Daily metoprolol succinate XL (TOPROL-XL) 50 mg, Oral, Daily Multiple Vitamin (Multi-Vitamin) tablet 1 tablet, Daily RT spironolactone (ALDACTONE) 25 mg, Oral, 2 times daily thyroid (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 traZODone (DESYREL) 75 mg, Oral, Nightly zaleplon (Sonata) 10 MG capsule Take 1 capsule at bedtime for sleep ALLERGIES: Allergies Allergen Reactions Magnesium Nausea Only Other Reaction(s): face flushed, nausea, pain Metformin Hcl Other Reaction(s): JACOB, Migraine, Other (See Comments) Tramadol Nausea Only Other Reaction(s): flushing, completely out of it flushed PHYSICAL EXAM: Visit Vitals BP (!) 146/94 Pulse 73 Ht 5' 3 Wt 253 lb SpO2 96% BMI 44.82 kg/m OB Status Hysterectomy Smoking Status Never BSA 2.26 m BP Readings from Last 3 Encounters: 10/18/24 (!) 146/94 09/08/24 150/74 06/28/24 132/80 Wt Readings from Last 3 Encounters: 10/18/24 253 lb 10/04/24 270 lb 09/08/24 270 lb ASCVD 10-Year Risk Score Current as of 48 minutes ago 14.1% 0 to < 5%: Low Risk 5 to < 7.5%: Borderline Risk 7.5 to < 20%: Intermediate Risk 20 to 100%: High Risk Last Change: An Atherosclerotic Cardiovascular Disease (ASCVD) event is defined as myocardial infarction, CHD , or stroke. The ASCVD risk score (Mitch GOODE, et al., 2019, 2020 [employer]) returns the percentage likelihood of a first time ASCVD event. Age: 69 Legal Sex: Female Non- : No Smokes Tobacco: No Has Diabetes Excluding Gestational Diabetes: No Systolic BP: 150 HDL: 45 mg/dL Total cholesterol: 182 mg/dL Is BP Treated: Yes Physical Exam The patient is pleasant and in no acute distress. The neck is supple and trachea is midline. No masses are appreciated. The heart is regular rate and rhythm without S3, S4. No murmur. The patient has normal respiratory pattern. The breath sounds are symmetrical without evidence of rhonchi or rales. No wheezing. The skin is warm and dry. The lower extremities have trace edema. The patient has good eye contact and speech is clear. Appropriate affect. ASSESSMENT AND PLAN: 1. Encounter for Medicare annual wellness exam (Primary) The patient is here for their Annual Medicare Wellness visit. Demographics were updated. Self-assessment was completed and reviewed. Past medical, family, and social history were updated. The medication list updated and reviewed by the doctor. A list of other current medical providers is established and updated. Time was spent discussing health maintenance issues, ordering testing as appropriate, and a schedule was reviewed regarding recommended screening. We discussed safety issues and fall risk. Depression screening was completed and addressed as appropriate. Fall screening was completed and addressed. Cognitive function was assessed by direct observation, cognitive screening as indicated, and assessment of ability to perform ADL's. The BMI and discussed. Major risk factors for chronic disease including family history were discussed. An after visit summary is made available to the patient 2. Advance directive in chart No changes to advanced directives 3. Encounter for screening for other disorder Clinically insignificant depression screening 4. Screening for alcohol problem Negative alcohol screen 5. Benign hypertension (CMS/HCC) Chronic problem, unstable and not to goal. We did discuss today and on the last several blood pressure readings she has been elevated. She is also having little more swelling in her legs. We are going to increase her current dose of losartan-hydrochlorothiazide 50-12.5 to 2 tablets daily. She has a plenty big supply. She is going to contact us back in approximately 2 weeks was 6 blood pressure readings. - losartan-hydroCHLOROthiazide (Hyzaar) 100-25 MG tablet; Take 1 tablet by mouth Daily 6. Hypertensive nephropathy (CMS/HCC) Chronic problem, stable, monitor longitudinally. 7. Morbid (severe) obesity due to excess calories (CMS/HCC) Chronic problem, stable, monitor longitudinally. 8. BMI 40.0-44.9, adult (CMS/HCC) Chronic problem that defines the morbid obesity. Noted that the patient has lost almost 20 lb and encouraged same. 9. Maggy's thyroiditis (CMS/HCC) Chronic problem, stable, monitor longitudinally. 10. Central hypothyroidism (CMS/HCC) Chronic problem, stable, monitor longitudinally. 11. High risk of cardiac event The patient has ASCVD risk factors, but does not currently have a cardiovascular disease diagnosis. A standardized, evidence-based ASCVD risk assessment, is generated during the office visit. Each section is reviewed individually with the patient and a discussion concerning any modifiable risk factors. This discussion lasted approximately 5-10 minutes documented in this encounter [facility] 09-08-2024 History of Presen t illness Narrative [...] 25 mg, Oral, 2 times daily thyroid (LAY UPS ASSEMBLER THYROID) 60 mg, Oral, 2 times daily [...] History: Diagnosis Date Allergic Arthritis Breathing problem Conteh Ryne Chronic fatigue COVID-19 COVID-19 determined by clinical [...] History: Procedure Laterality Date ANKLE SURGERY Left 2001 ankle plate ANKLE SURGERY 2001 ankle plate removed APPENDECTOMY 1981 SECTION, LOW TRANSVERSE EXPLORATORY LAPAROTOMY HYSTERECTOMY 1989 KNEE SURGERY 1998 [employer] OTHER SURGICAL HISTORY 12/2021 cervical nerve root ablation at [facility] TONSILLECTOMY TOTAL KNEE ARTHROPLASTY Left TOTAL KNEE [...] Never Physical Exam Exam conducted with a iron plastic bullet maker present. HENT: Head: Normocephalic. Cardiovascular: Rate and [...] in 6 months. documented in this encounter [facility] 07-19-2024 History of Presen t illness Narrative [...] vision or metamorphopsia. documented in this encounter [facility] 06-28-2024 History of Presen t illness Narrative [...] mg) before bedtime. 180 tablet 0 thyroid (LAY UPS ASSEMBLER Thyroid) 60 MG tablet Take 1 tablet [...] PAP therapy. The patient or their sales and service representative and I have mutually agreed to [...] humidification. I certify that I had a pnwj-up-eefp encounter with this patient at todays office visit. Due to this medical condition the patient continues to require the DME. I certify that based on my findings The DME ordered is medically necessary for this patient. This has been discussed with the patient or their sales and service representative and mutually agreed upon. 4. Paralysis [...] if any problems occur. (Utilizing the original 1994/1996 guidelines or the 2020 office/outpatient code guidelines [...] the simple carbohydrates. documented in this encounter [facility] 04-12-2024 History of Presen t illness Narrative [...] if needed for wheezing 54 g 1 hadzxxbhzg-lybmvuferodca-qclvqemo (Fioricet) 50-300-40 MG capsule Take 1 capsule [...] mg) before bedtime. 60 tablet 0 thyroid (LAY [employer] ASSEMBLER Thyroid) 60 MG tablet Take 1 tablet [...] or if any problems occur. - thyroid (LAY [employer] ASSEMBLER Thyroid) 60 MG tablet; Take 1 tablet [...] if any problems occur. (Utilizing the original 1994/1996 guidelines or the 2020 office/outpatient code guidelines for selecting the level of E/M service, In both sets of guidelines, prescription drug management appears in the moderate medical decision making (MDM) row. Neither the original guidelines nor the new guidelines state that a new prescription or change is needed in order to credit prescription drug management) - thyroid (LAY [employer] ASSEMBLER Thyroid) 60 MG tablet; Take 1 tablet (60 mg) by mouth in the morning and 1 tablet (60 mg) in the evening. Take before meals. Dispense: 180 tablet; Refill: 1 5. Chronic fatigue Chronic problem, stable, complex in nature with moderate decision making. I discussed with the patient and/or their sales and service representative, their fatigue issues. We discussed how [...] changes as above documented in this encounter [facility] Healthcare Evaluation note Diagnosis Sleep disorder due to [...] glucose tolerance test documented in this encounter [facility] HealthcareEvaluation note* Diagnosis Central hypothyroidism (CMS/HCC)- Primary Unspecified hypothyroidism Acquired hypothyroidism (CMS/HCC) Unspecified hypothyroidism Maggy's thyroiditis (CMS/HCC) Chronic lymphocytic thyroiditis ESS (euthyroid sick syndrome) Euthyroid sick syndrome Chronic fatigue Other malaise and fatigue Morbid (severe) obesity due to excess calories (CMS/HCC) documented in this encounter [facility]* Diagnosis Cortical age-related cataract of both eyes- Primary Early dry stage nonexudative age-related macular degeneration of both eyes Nevus of choroid of right eye documented in this encounter [facility]* Diagnosis Cyst of right breast- Primary Abnormal mammography Abnormal mammogram, unspecified documented in this encounter [facility]* Diagnosis Encounter for Medicare annual wellness exam- Primary Advance directive in chart Encounter for screening for other disorder Screening for alcohol problem Screening for alcoholism Benign hypertension (CMS/HCC) Essential hypertension, benign Hypertensive nephropathy (CMS/HCC) Unspecified hypertensive kidney disease with chronic kidney disease stage I through stage IV, or unspecified Morbid (severe) obesity due to excess calories (CMS/HCC) BMI 40.0-44.9, adult (CMS/HCC) Maggy's thyroiditis (CMS/HCC) Chronic lymphocytic thyroiditis Central hypothyroidism ([facility]/HCC) Unspecified hypothyroidism High risk of cardiac event documented in this encounter [facility]* Diagnosis Benign hypertension (CMS/HCC)- Primary Essential hypertension, benign Hypertensive nephropathy (CMS/HCC) Unspecified hypertensive kidney disease with chronic kidney disease stage I through stage IV, or unspecified Stage 3a chronic kidney disease (HCC) ([facility]) Impaired glucose tolerance Impaired glucose tolerance test Sleep disorder due to a general medical condition, mixed type Other sleep disturbances Morbid (severe) obesity due to excess calories (CMS/HCC) BMI 40.0-44.9, adult ([facility]) Venous insufficiency Unspecified venous (peripheral) insufficiency Chronic fatigue Other malaise and fatigue documented in this encounter [facility] note* Diagnosis Central hypothyroidism- Primary Unspecified hypothyroidism Maggy's thyroiditis Chronic lymphocytic thyroiditis Euthyroid sick syndrome Chronic fatigue Other malaise and fatigue Morbid (severe) obesity due to excess calories ([facility]) BMI 40.0-44.9, adult ([facility]) documented in this encounter [facility]* Diagnosis Cyst of right breast- Primary documented in this encounter [facility] HealthcareEvaluation noteNo assessment information availableMary[facility] Work Phone: Reason for referral (narrative)No reason for referral information availableMarymount Hospital Work Phone: Summary Purpose Family History No Family History Records FoundNo Family History Records FoundNo Family History Records FoundNo Family History Records FoundNo Family History Records FoundNo Family History Records Found Advance Directives No Advanced Directives Records FoundDocuments on File Type Date 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 d[facility] Specialist DATE CREATED AUTHOR AUTHOR'S ORGANIZ ATION 10/11/2022 [facility] DATE CREATED AUTHOR AUTHOR'S ORGANIZ ATION 01/28/2025 [facility] DATE CREATED AUTHOR AUTHOR'S ORGANIZ ATION 03/12/2025 [facility] d[facility] Specialists EPIC DATE CREATED AUTHOR AUTHOR'S ORGANIZ ATION 03/24/2025 [facility] Care Teams (unrecognized sec tion and content) Sign Installer Relationship Specialty Start Date End Date Ramiro Gifford MD (Fax) PCP - General Family Medicine 01/16/23 Sign Installer Relationship Specialty Start Date End Date Ramiro Gifford MD (Fax) PCP - General Family Medicine 01/16/23 Sign Installer Relationship Specialty Start Date End Date Ramiro Gifford MD [address] [place] [address] PCP - General Family Medicine 01/16/23 Sign Installer Relationship Specialty Start Date End Date Ramiro Gifford MD [address] [place] [address] (Fax) PCP - General Family Medicine 01/16/23 Sign Installer Relationship Specialty Start Date End Date Ramiro Gifford MD [address] [place] [address] (Fax) PCP - General Family Medicine 01/16/23 Sign Installer Relationship Specialty Start Date End Date Ramiro Gifford MD [address] [place] [address] (Fax) PCP - General Family Medicine 01/16/23 Sign Installer Relationship Specialty Start Date End Date Ramiro Gifford MD [address] [place] [address] (Fax) PCP - General Family Medicine 01/16/23 Sign Installer Relationship Specialty Start Date End Date Ramiro Gifford MD [address] [place] [address] (Fax) PCP - General Family Medicine 01/16/23 Sign Installer Relationship Specialty Start Date End Date Ramiro Gifford MD [address] [place] [address] (Fax) PCP - General Family Medicine 01/16/23 Sign Installer Relationship Specialty Start Date End Date Ramiro Gifford MD [address] [place] [address] (Fax) PCP - General Family Medicine 01/16/23 Sign Installer Relationship Specialty Start Date End Date Ramiro Gifford MD [address] [place] [address] (Fax) PCP - General Family Medicine 01/16/23 Sign Installer Relationship Specialty Start Date End Date Ramiro Gifford MD [address] [place] [address] (Fax) PCP - General Family Medicine 01/16/23 Team Status: Active Member Role Status Dates Ramiro Gifford MD Primary Care Provider Active Team Status: Inactive Member Role Status Dates Ramiro Gifford MD Primary Care Provider Active Start: March 23, 2025 End: March 23, 2025 Indra Bauer DO Attending Provider Active Start: March 23, 2025 End: March 23, 2025 Reason for Visit (unrecogniz ed section and content) Reason Comments Hypertension Sleeping Problem Reason Comments Eye Exam Macular Degeneration Reason Comments Breast consult, abnormal mamms Specialty Diagnoses / Procedures Referred By Faith t Referred To Contact General Surgery Diagnoses Abnormal mammography Procedures TX OFFICE/OUTPATIENT NEW HIGH MDM 60 MINUTES Ramiro Gifford MD [address] [facility] [address] [place] [address] Phone: tel: fax: Olu Leal, DO [address] [facility] [address] [place] [address] Phone: tel: fax: Referral ID Status Reason Start Date Expiration Date V isits Requested Visits Authorized [id number] Closed Specialty Services Required 08/17/2024 02/13/2025 1 1 Reason Comments Annual Exam Reason Comments Hypothyroidism Reason Comments 6mos. follow up Rt. mamm/US w/exam Goals (unrecognized section and content) Goals may be documented in a n alternate section FOR RECORDS PERTAINING TO PATIENTS WHO ARE [...] BE BASED ON THE PRIMARY CLINICAL RECORDS. [employer] provides no warranty or guarantee of the accuracy or completeness of information in this document.
--- NOTE | 2025-03-25 23:41 | PC.NURSE ---
Bruising noted to top of right foot at base of little toe. Patient reports yesterday running foot in to door.
--- NOTE | 2025-03-26 00:02 | ED.LOWEXI1 ---
HPI HPI - Extremity Injury (Lower) General Chief Complaint: Extremity Injury, Lower Stated Complaint: HURT HER RIGHT BABY TOE BY CLOSING THE DOOR ON IT Time Seen by Provider: 03/25/25 23:40 Source: patient Mode of arrival: walk-in Limitations: no limitations History of Present Illness HPI Narrative: injured right foot yesterday. struck foot with the door she opened. Complains of pain and concerned she fractured her foot. Denies other injury Related Data Home Medications ?Medication ?Instructions ?Recorded ?Confirmed metoprolol succinate 50 mg capsule 50 mg PO DAILY 09/16/23 03/25/25 sprinkle, ext. release 24 hr thyroid (pork) 60 mg tablet (ELASTIC YARN TWISTER 60 mg PO DAILY 09/16/23 03/25/25 Thyroid) trazodone 50 mg tablet 50 mg PO .at night PRN insomnia 09/16/23 03/25/25 zaleplon 10 mg capsule 10 mg PO .qhs 09/16/23 03/25/25 levothyroxine 50 mcg tablet mcg 03/25/25 liothyronine 5 mcg tablet mcg 03/25/25 Previous Rx's ?Medication ?Instructions ?Recorded soaziliaec-gydqiqizjfdbp-tpxufdur 1 cap PO Q8H PRN pain/headache #7 09/16/23 50 mg-300 mg-40 mg capsule caps (Fioricet) prochlorperazine maleate 10 mg 10 mg PO Q12H PRN nausea and 09/16/23 tablet (Compazine) vomiting, headache 7 days #7 tabs Allergies Allergy/AdvReac Type Severity Reaction Status Date / Time magnesium Allergy Mild headache Verified 03/25/25 23:16 ketorolac (From Toradol) Allergy Unknown headcahe Verified 03/25/25 23:16 metformin Allergy Mild headache Uncoded 03/25/25 23:16 Opioid HPI Opioid Management Most Recent Pain and Opioid Data: Last Pain Scale 4 03/25/25, 23:13 Review of Systems ROS Status of ROS 10 or more systems reviewed and unremarkable except as noted in history and below PFSH PFSH Social History Smoking status: Never smoker Little interest or pleasure in doing things: not at all Feeling down, depressed, or hopeless: not at all Exam Constitutional Vital Signs, click to edit/add: Last Vital Signs Temp 97.3 F L 03/25/25 23:13 Pulse 80 03/25/25 23:13 Resp 14 03/25/25 23:13 BP 148/84 H 03/25/25 23:13 Pulse Ox 95 03/25/25 23:13 O2 Del Method Room Air 03/25/25 23:13 Common normals: no apparent distress, average body habitus, oriented x3, no limitations, healthy appearing, alert and well nourished [facility] Common normals: normocephalic and head/scalp atraumatic Eye Common normals: EOMs intact bilaterally and conjunctivae normal Respiratory Common normals: normal respiratory effort, no retractions, no use of accessory muscles and clear to auscultation bilaterally Cardio Common normals: regular rate, regular rhythm, S1 normal heart sound and S2 normal heart sound Extremity Other: faint ecchymosis right 5th toe and distal right 5th metatarsal has swelling of her foot Neuro Common normals: oriented x3, CN's II-XII intact bilaterally, moves all extremities and no focal motor deficits Psych Appearance: grossly normal Course Vital Signs Vital signs: Vital Signs Temperature 97.3 F L 03/25/25 23:13 Pulse Rate 80 03/25/25 23:13 Respiratory Rate 14 03/25/25 23:13 Blood Pressure 148/84 H 03/25/25 23:13 Pulse Oximetry 95 03/25/25 23:13 Oxygen Delivery Method Room Air 03/25/25 23:13 Temperature 97.3 F L 03/25/25 23:13 Pulse Rate 80 03/25/25 23:13 Respiratory Rate 14 03/25/25 23:13 Blood Pressure 148/84 H 03/25/25 23:13 Pulse Oximetry 95 03/25/25 23:13 Oxygen Delivery Method Room Air 03/25/25 23:13 MDM - Extremity Injury (Lower) MDM Narrative Medical decision making narrative: opened a door yesterday striking her right foot. Now presents with pain and swelling of the foot. faint ecchymosis at the 5th toe and adjoining metatarsal. xray per radiologist is neg. Patient informed of the xray reading. Provided a post op shoe and discharged home Discharge Plan Discharge Chief Complaint: Extremity Injury, Lower Clinical Impression: Contusion of foot, right Patient Disposition: Home, Self-Care Prescriptions / Home Meds: No Action thyroid (pork) [ELASTIC YARN TWISTER Thyroid] 60 mg tablet 60 mg PO DAILY trazodone 50 mg tablet 50 mg PO .at night PRN (Reason: insomnia) zaleplon 10 mg capsule 10 mg PO .qhs metoprolol succinate 50 mg capsule,sprinkle,ER 24hr 50 mg PO DAILY prochlorperazine maleate [Compazine] 10 mg tablet 10 mg PO Q12H PRN (Reason: nausea and vomiting, headache) 7 Days Qty: 7 0RF zawlrqopsv-hprbasjtlrkvq-fvhq [Fioricet] 50-300-40 mg capsule 1 cap PO Q8H PRN (Reason: pain/headache) Qty: 7 0RF liothyronine 5 mcg tablet levothyroxine 50 mcg tablet Print Language: Kyrgyz Instructions: Foot Contusion (ED) Additional Instructions: follow up with your doctor next week for recheck Referrals: MAAME GIFFORD [Primary Care Provider, Family Practice] - 1 week
== END 2025-03-26 00:19 | disposition home or self-care (01) ==
PROVIDERS: Emergency Provider Internal Medicine; PCP Family Medicine
DX: S90.31XA Contusion of right foot, initial encounter (principal); W22.8XXA Striking against or struck by other objects, initial encounter
CPT/HCPCS: 73630; 99283